=== PATIENT | female | born 1955 | race American Indian/Alaskan Native ===

== ENCOUNTER 2017-01-06 19:47 | Emergency (ER) | payer OTHER ==
[2017-01-06 20:25] VITALS: BP 112/70
[2017-01-06 20:53] LABS: Basophils % (Auto) 0.5 % (0.0-1.8); Eosinophils % (Auto) 0.6 % (0.0-4.3); Hematocrit 37.9 % (30.3-42.9); Hemoglobin 12.9 gm/dl (10.1-14.3); Mean Corpuscular HGB Conc 34 % (30-34); Mean Corpuscular Hemoglobin 32 pg (28-32); Mean Corpuscular Volume 94 fl (79-97); Platelet Count 135 K/mm3 (140-440); Red Blood Count 4.03 M/mm3 (3.65-5.03); Red Cell Distribution Width 13.5 % (13.2-15.2); White Blood Count 5.2 K/mm3 (4.5-11.0)
[2017-01-06 21:03] LABS: Alanine Aminotransferase 32 units/L (7-56); Albumin 4.3 g/dL (3.9-5); Albumin/Globulin Ratio 1.1 %; Alkaline Phosphatase 68 units/L (35-129); Anion Gap 21 mmol/L; BUN/Creatinine Ratio 12.85; Blood Urea Nitrogen 9 mg/dL (7-17); Calcium 9.6 mg/dL (8.4-10.2); Carbon Dioxide 24 mmol/L (22-30); Chloride 94.9 mmol/L (98-107); Glucose 383 mg/dL (65-100); Lipase 38 units/L (13-60); Sodium 137 mmol/L (137-145); Total Protein 8.2 g/dL (6.3-8.2)
[2017-01-06 21:05] LABS: Potassium 2.9 mmol/L (3.6-5.0)
[2017-01-06] MEDS ORDERED: MORPHINE IV ONE (21:20)
[2017-01-06] MEDS ORDERED: ZOFRAN IV ONE (21:20)
--- NOTE | 2017-01-06 21:27 | Emergency Department Report ---
ED Abdominal Pain HPI - General Chief Complaint: Abdominal Pain Stated Complaint: LEFT SIDE PAIN Time Seen by Provider: 01/06/17 21:13 Source: patient Mode of arrival: Ambulatory Limitations: No Limitations - History of Present Illness Initial Comments: 61 years old female history of high blood pressure diabetes and cancer to his chief complaint of left lower quadrant abdominal pain started last night. Pain is sharp in nature, constant, patient stated that she's been having diarrhea for more than a month now. Denied any nausea or vomiting no fever. MD Complaint: abdominal pain -: Last night Location: LLQ Radiation: none Migration to: no migration Severity: moderate Severity scale (0 -10): 6 Quality: sharp Consistency: constant Associated Symptoms: diarrhea - Related Data Previous Rx's Medication Instructions Recorded Last Taken Type Hydrochlorothiazide [Hctz] 25 mg PO QDAY #30 tablet 05/09/14 07/26/14 Rx Metoclopramide [Reglan] 10 mg PO TID PRN #20 tablet 05/09/14 07/26/14 Rx amLODIPine [Norvasc] 5 mg PO DAILY #30 tab 05/09/14 07/19/14 Rx glipiZIDE [Glucotrol] 5 mg PO QDAY #30 tablet 05/09/14 07/26/14 Rx HYDROcodone/APAP 10-325 [[place] 1 each PO Q6H PRN #10 tablet 07/27/14 Unknown Rx 10-325 mg TAB] Acetaminophen/Codeine [Tylenol 1 tab PO Q6H PRN #14 tab 01/07/17 Unknown Rx /Codeine # 3 tab] Levofloxacin [Levaquin TAB] 500 mg PO QDAY #7 tablet 01/07/17 Unknown Rx Ondansetron [Zofran Odt] 4 mg PO Q8HR PRN #14 tab.rapdis 01/07/17 Unknown Rx Allergies Allergy/AdvReac Type Severity Reaction Status Date / Time latex Allergy Rash Verified 04/25/13 13:59 ED Review of Systems ROS: Stated complaint: LEFT SIDE PAIN Other details as noted in HPI Comment: All other systems reviewed and negative Constitutional: denies: chills, fever Respiratory: denies: cough, shortness of breath Cardiovascular: denies: chest pain, palpitations Gastrointestinal: abdominal pain, diarrhea. denies: nausea, vomiting, constipation, hematemesis, melena, hematochezia Genitourinary: denies: urgency, dysuria, frequency, hematuria Neurological: denies: headache, numbness ED Past Medical Hx - Past Medical History Previous Medical History?: Yes Hx Hypertension: Yes Hx Diabetes: Yes Hx Psychiatric Treatment: Yes (Anxiety, OCD, depression) Additional medical history: Noncompliant with hypertension and diabetic meds, Enlarged Liver - Surgical History Additional Surgical History: Tubal ligation. partial hysterectomy, microscopic surg to both knees - Social History Smoking Status: Current Every Day Smoker Substance Use Type: Alcohol - Medications Home Medications: Home Medications Medication Instructions Recorded Confirmed Last Taken Type Hydrochlorothiazide [Hctz] 25 mg PO QDAY #30 tablet 05/09/14 07/27/14 07/26/14 Rx Metoclopramide [Reglan] 10 mg PO TID PRN #20 tablet 05/09/14 07/27/14 07/26/14 Rx amLODIPine [Norvasc] 5 mg PO DAILY #30 tab 05/09/14 07/27/14 07/19/14 Rx glipiZIDE [Glucotrol] 5 mg PO QDAY #30 tablet 05/09/14 07/27/14 07/26/14 Rx HYDROcodone/APAP 10-325 [[place] 1 each PO Q6H PRN #10 tablet 07/27/14 Unknown Rx 10-325 mg TAB] Acetaminophen/Codeine [Tylenol 1 tab PO Q6H PRN #14 tab 01/07/17 Unknown Rx /Codeine # 3 tab] Levofloxacin [Levaquin TAB] 500 mg PO QDAY #7 tablet 01/07/17 Unknown Rx Ondansetron [Zofran Odt] 4 mg PO Q8HR PRN #14 tab.rapdis 01/07/17 Unknown Rx ED Physical Exam - General Limitations: No Limitations General appearance: alert, in no apparent distress - Head Head exam: Present: normocephalic - Eye Eye exam: Present: normal appearance - ENT ENT exam: Present: normal exam - Neck Neck exam: Present: normal inspection. Absent: tenderness, meningismus - Respiratory Respiratory exam: Present: normal lung sounds bilaterally. Absent: respiratory distress, wheezes, rales, rhonchi, stridor - Cardiovascular Cardiovascular Exam: Present: regular rate, normal rhythm, normal heart sounds - GI/Abdominal GI/Abdominal exam: Present: soft, tenderness. Absent: distended, guarding, rebound, rigid (left lower quadrant), normal bowel sounds, mass, bruit, pulsatile mass - Extremities Exam Extremities exam: Present: normal inspection - Back Exam Back exam: Present: normal inspection. Absent: tenderness, CVA tenderness (R), CVA tenderness (L) - Neurological Exam Neurological exam: Present: alert, oriented X3, CN II-XII intact, normal gait. Absent: motor sensory deficit - Skin Skin exam: Present: warm, intact, normal color ED Course Vital Signs 01/06/17 20:21 Temperature 99.0 F Pulse Rate 99 H Respiratory 20 Rate Blood Pressure 112/70 O2 Sat by Pulse 98 Oximetry - Reevaluation(s) Reevaluation #1: 01/07/17 02:58 Patient stated that she is feeling better. I informed about blood work and a CT scan result which she showed colitis. Patient received IV Levaquin in the ER in will be discharged on Levaquin by mouth and [place] and Zofran for her nausea. ED Medical Decision Making - Lab Data Result diagrams: 01/06/17 20:30 01/06/17 20:30 - EKG Data -: EKG Interpreted by Me EKG shows normal: sinus rhythm Rate: normal - EKG Data Interpretation: no acute changes - Radiology Data Radiology results: report reviewed CT abdomen and pelvis with evidence of colitis no other acute abnormalities Critical care attestation.: If time is entered above; I have spent that time in minutes in the direct care of this critically ill patient, excluding procedure time. ED Disposition Clinical Impression: Abdominal pain, Colitis Disposition: DC-01 TO HOME OR SELFCARE Is pt being admited?: No Condition: Stable Instructions: Abdominal Pain (ED), Infectious Colitis (ED) Prescriptions: Acetaminophen/Codeine [Tylenol /Codeine # 3 tab] 1 tab PO Q6H PRN #14 tab PRN Reason: Pain Levofloxacin [Levaquin TAB] 500 mg PO QDAY #7 tablet Ondansetron [Zofran Odt] 4 mg PO Q8HR PRN #14 tab.rapdis PRN Reason: Nausea And Vomiting Referrals: PRIMARY CARE, [Primary Care Provider] - 3-5 Days
[2017-01-06] MEDS ORDERED: NACL 0.9% 1000 ML 1,000 ML IV ONE (21:28)
[2017-01-06] MEDS: KCL 10MEQ/100ML 10 MEQ/100 ML BAG IV SCH (22:01)
[2017-01-06] MEDS ORDERED: NACL ONE (22:05)
--- NOTE | 2017-01-06 23:14 | Cat Scan Report ---
FINAL REPORT EXAM: CT ABDOMEN PELVIS W CON HISTORY: abdominal pain COMPARISON: None available. TECHNIQUE: Contiguous axial images were obtained. Additional sagittal and coronal reformatted images were obtained. Administration of IV contrast given per institution protocol. Images submitted for interpretation. 100 cc Omnipaque 300. FINDINGS: Wall thickening of the transverse colon and descending colon compatible segmental colitis. Wall thickness is approximately 4-5 millimeters. Minimal haziness of the adjacent fat. Remaining bowel loops normal in caliber. No bowel obstruction. No free air pneumatosis. The appendix is partially gas-filled and normal in caliber. Mild linear scarring or atelectasis at the lung bases. Cholelithiasis. No gross inflammatory changes the gallbladder. The common bile duct is mildly dilated at the ekta hepatis measuring 8 millimeters but tapers to normal in caliber measuring 3-4 millimeters at the pancreatic head. Mild diffuse fatty infiltration of the liver. No focal hepatic lesion. Homogeneous enhancement of the spleen and pancreas. Small benign calcification the pancreas. Mild nodular thickening of adrenal glands. No solid renal lesion or hydronephrosis. 4 millimeter left renal cyst. Aorta and IVC are normal in caliber. Urinary bladder is unremarkable. Uterus is surgically absent. Bilateral ovaries appear to remain. No free fluid or lymphadenopathy in the pelvic cavity. [id number] degenerative changes of the lumbar spine. Grade 1 anterolisthesis of L4 on L5 due to facet changes. Bony pelvis is grossly intact. IMPRESSION: Mild segmental colitis involving the transverse colon and descending colon likely inflammatory or infectious in etiology. Remaining bowel loops normal in caliber. The appendix is normal in caliber. Cholelithiasis. No gross inflammatory changes the gallbladder.
[2017-01-06] MEDS ORDERED: LEVAQUIN 750MG/150ML 750 MG/150 ML BAG IV ONE (23:42)
[2017-01-07] MEDS: KCL 10MEQ/100ML 10 MEQ/100 ML BAG IV SCH (00:16)
[2017-01-07] MEDS ORDERED: MORPHINE IV ONE (02:26)
[2017-01-07] MEDS ORDERED: MORPHINE ONE (02:29)
[2017-01-07] MEDS ORDERED: KCL 10MEQ/100ML 10 MEQ/100 ML BAG IV ONE (02:51)
== END 2017-01-07 05:40 | disposition home or self-care (01) ==
LOC: ED 19:47
DX: K52.9 Noninfective gastroenteritis and colitis, unspecified (principal); R10.32 Left lower quadrant pain; I10 Essential (primary) hypertension; E11.9 Type 2 diabetes mellitus without complications; F17.200 Nicotine dependence, unspecified, uncomplicated; Z91.040 Latex allergy status
CPT/HCPCS: 36415; 74177; 80053; 82962; 83690; 85025; 93005; 93010; 96361; 96365; 96375; 96376; 99284; J1956; J2270; J2405; J3480; J7030; Q9967; J1815

== ENCOUNTER 2017-02-10 17:36 | Emergency (ER) | payer MEDICARE, OTHER ==
--- NOTE | 2017-02-10 21:05 | Emergency Department Report ---
ED General Adult HPI - General Chief complaint: Extremity Injury, Lower Stated complaint: LEFT THIGH PAIN Source: patient Mode of arrival: Ambulatory Limitations: No Limitations - History of Present Illness Initial comments: 61-year-old -[place] female presents to fast track for complaint of pain in her left thigh. This is an going on for about 1 week. Patient denies any falls. She reports that she's been taken Tylenol without much relief. She denies any fever chills no nausea no vomiting. She did have an appointment last week to her primary care doctor which is Dr. Ana Rosa Dsouza but was not able to make it secondary to transportation. Patient has a past medical history of diabetes and hypertension. -: week(s) (1) Location: lower extremity (left thigh) - Related Data Previous Rx's Medication Instructions Recorded Last Taken Type Hydrochlorothiazide [Hctz] 25 mg PO QDAY #30 tablet 05/09/14 07/26/14 Rx Metoclopramide [Reglan] 10 mg PO TID PRN #20 tablet 05/09/14 07/26/14 Rx amLODIPine [Norvasc] 5 mg PO DAILY #30 tab 05/09/14 07/19/14 Rx glipiZIDE [Glucotrol] 5 mg PO QDAY #30 tablet 05/09/14 07/26/14 Rx HYDROcodone/APAP 10-325 [[place] 1 each PO Q6H PRN #10 tablet 07/27/14 Unknown Rx 10-325 mg TAB] Acetaminophen/Codeine [Tylenol 1 tab PO Q6H PRN #14 tab 01/07/17 Unknown Rx /Codeine # 3 tab] Levofloxacin [Levaquin TAB] 500 mg PO QDAY #7 tablet 01/07/17 Unknown Rx Ondansetron [Zofran Odt] 4 mg PO Q8HR PRN #14 tab.rapdis 01/07/17 Unknown Rx Naproxen [Naprosyn] 500 mg PO BID #30 tablet 02/10/17 Unknown Rx Allergies Allergy/AdvReac Type Severity Reaction Status Date / Time latex Allergy Rash Verified 04/25/13 13:59 ED Review of Systems ROS: Stated complaint: LEFT THIGH PAIN Other details as noted in HPI Constitutional: denies: chills, fever Eyes: denies: eye pain, eye discharge, vision change ENT: denies: ear pain, throat pain Respiratory: denies: cough, shortness of breath, wheezing Cardiovascular: denies: chest pain, palpitations Endocrine: no symptoms reported Gastrointestinal: denies: abdominal pain, nausea, diarrhea Musculoskeletal: arthralgia, myalgia Skin: denies: rash, lesions Neurological: denies: headache, weakness, paresthesias Psychiatric: denies: anxiety, depression ED Past Medical Hx - Past Medical History Previous Medical History?: Yes Hx Hypertension: Yes Hx Diabetes: Yes Hx Psychiatric Treatment: Yes (Anxiety, OCD, depression) Additional medical history: Noncompliant with hypertension and diabetic meds, Enlarged Liver - Surgical History Past Surgical History?: Yes Additional Surgical History: Tubal ligation. partial hysterectomy, microscopic surg to both knees - Social History Smoking Status: Current Every Day Smoker Substance Use Type: Alcohol, Prescribed - Medications Home Medications: Home Medications Medication Instructions Recorded Confirmed Last Taken Type Hydrochlorothiazide [Hctz] 25 mg PO QDAY #30 tablet 05/09/14 07/27/14 07/26/14 Rx Metoclopramide [Reglan] 10 mg PO TID PRN #20 tablet 05/09/14 07/27/14 07/26/14 Rx amLODIPine [Norvasc] 5 mg PO DAILY #30 tab 05/09/14 07/27/14 07/19/14 Rx glipiZIDE [Glucotrol] 5 mg PO QDAY #30 tablet 05/09/14 07/27/14 07/26/14 Rx HYDROcodone/APAP 10-325 [[place] 1 each PO Q6H PRN #10 tablet 07/27/14 Unknown Rx 10-325 mg TAB] Acetaminophen/Codeine [Tylenol 1 tab PO Q6H PRN #14 tab 01/07/17 Unknown Rx /Codeine # 3 tab] Levofloxacin [Levaquin TAB] 500 mg PO QDAY #7 tablet 01/07/17 Unknown Rx Ondansetron [Zofran Odt] 4 mg PO Q8HR PRN #14 tab.rapdis 01/07/17 Unknown Rx Naproxen [Naprosyn] 500 mg PO BID #30 tablet 02/10/17 Unknown Rx ED Physical Exam - General Limitations: No Limitations General appearance: alert, in no apparent distress - Head Head exam: Present: atraumatic, normocephalic - Eye Eye exam: Present: normal appearance - ENT ENT exam: Present: mucous membranes moist - Neck Neck exam: Present: normal inspection - Respiratory Respiratory exam: Present: normal lung sounds bilaterally. Absent: respiratory distress - Cardiovascular Cardiovascular Exam: Present: regular rate, normal rhythm. Absent: systolic murmur, diastolic murmur, rubs, gallop - GI/Abdominal GI/Abdominal exam: Present: soft, normal bowel sounds - Expanded Lower Extremity Exam Left Upper Leg exam: Present: normal inspection, full ROM, tenderness. Absent: swelling, abrasion, laceration, ecchymosis, deformity Knee exam: Present: normal inspection, full ROM Lower Leg exam: Present: normal inspection Ankle exam: Present: normal inspection Foot/Toe exam: Present: normal inspection Neuro vascular tendon exam: Present: no vascular compromise - Back Exam Back exam: Present: normal inspection - Neurological Exam Neurological exam: Present: oriented X3 - Psychiatric Psychiatric exam: Present: normal affect, normal mood - Skin Skin exam: Present: warm, dry, intact, normal color. Absent: rash ED Course Vital Signs 02/10/17 17:46 Temperature 99.2 F Pulse Rate 108 H Respiratory 20 Rate Blood Pressure 144/86 O2 Sat by Pulse 99 Oximetry ED Medical Decision Making - Radiology Data Radiology results: report reviewed X-ray of femur shows mouth degree of osteoarthritis hip joint and moderate degree of osteoarthritis of the knee joint. X-ray of the lumbar sacral two- view shows multilevel degenerative changes as described above with mild degree of return the Listhesis at T12 to L1 and spondylolithiasis at the L4 and 5 - Medical Decision Making Patient evaluated by this provider faster. X-rays of her lumbar sacral as well as her left thigh was ordered. We'll give her shot of Toradol. An discharge her on naproxen 800 mg twice a day. Critical care attestation.: If time is entered above; I have spent that time in minutes in the direct care of this critically ill patient, excluding procedure time. ED Disposition Clinical Impression: Osteoarthritis of left hip, Spondylisthesis Disposition: TO HOME OR SELFCARE Is pt being admited?: No Does the pt Need Aspirin: No Condition: Stable Instructions: Degenerative Disc Disease (ED), Osteoarthritis (ED) Additional Instructions: Take medication as prescribed. Follow-up with her primary care provider or orthopedist. Prescriptions: Naproxen [Naprosyn] 500 mg PO BID #30 tablet Referrals: FABIANA HANNA MD [Staff Physician] - 3-5 Days
[2017-02-10] MEDS ORDERED: TORADOL ONE (21:27)
[2017-02-10] MEDS: TORADOL IM ONE (21:30)
--- NOTE | 2017-02-10 21:30 | XRay Report ---
FINAL REPORT PROCEDURE: XR SPINE LUMBOSACRAL 2-3V TECHNIQUE: Lumbar spine radiographs, including AP, lateral, and lumbosacral spot views. CPT 83749 HISTORY: lower back pain COMPARISON: No prior studies are available for comparison. FINDINGS: Alignment: Mild degree spondylolisthesis is noted at L4-5 measuring about 4 millimeters. Mild degree retrolisthesis is identified at T12-L1 measuring 4 millimeters.. Minimal degree dextroscoliosis is noted. Vertebral body heights/Disk spaces: Marginal osteophyte formation is noted involving the lower thoracic spine and L1-2. Severe degree narrowing of the intervertebral disc spaces noted at T12-L1. Fracture(s): None. Facets: Unremarkable as visualized on these AP and lateral views.. Bone mineralization: Normal. IMPRESSION: Multilevel degenerative changes as described above with mild degree return listhesis at T12-L1 and spondylolisthesis at the L4-5.
--- NOTE | 2017-02-10 21:33 | XRay Report ---
FINAL REPORT PROCEDURE: XR FEMUR 2+V LT TECHNIQUE: LEFT femur radiographs, AP and lateral views. HISTORY: Thigh pain that radiates COMPARISON: No prior studies are available for comparison. FINDINGS: Fracture (s) and/or Dislocation(s): None . Joint space(s): Mild degree narrowing of left hip joint space is noted and moderate degree narrowing of Led[place] left knee joint spaces is noted. Moderate degree osteophyte formation is identified involving the knee joint. There is minimal degree knee joint effusion.. Soft tissues: Normal . Bone mineralization: Normal . Foreign bodies: None . IMPRESSION: Mild degree osteoarthritis hip joint and moderate degree osteoarthritis knee joint
[2017-02-10 22:22] VITALS: BP 131/83
== END 2017-02-10 22:22 | disposition home or self-care (01) ==
LOC: ED 17:36
DX: M16.12 Unilateral primary osteoarthritis, left hip (principal); M46.90 Unspecified inflammatory spondylopathy, site unspecified; I10 Essential (primary) hypertension; E11.9 Type 2 diabetes mellitus without complications; F17.200 Nicotine dependence, unspecified, uncomplicated
CPT/HCPCS: 72100; 73552; 96372; 99283; J1885

== ENCOUNTER 2018-08-19 18:41 | Inpatient (IN) | payer MEDICARE ==
[2018-08-19] MEDS ORDERED: MORPHINE IV ONE (20:47)
--- NOTE | 2018-08-19 20:51 | Emergency Department Report ---
ED Lower Extremity HPI - General Chief Complaint: Fall Stated Complaint: R LEG PAIN Time Seen by Provider: 08/19/18 20:03 Source: patient, EMS Mode of arrival: Stretcher Limitations: Physical Limitation - History of Present Illness Initial Comments: 63-year-old female with history of hypertension and diabetes presents to the ED with right leg injury. The patient states she slipped and fell in her kitchen, reports pain to the right thigh. Patient is on and that the right thigh externally rotated, flexed at the knee. Patient states she is unable to move it from that position due to pain. Patient denies numbness or tingling in her toes. Patient is able to move her toes. Patient given fentanyl 100 mcg by EMS. PCP: Dr Lianna SANTOYO Complaint: thigh injury -: This evening Injury: Thigh: Right Place: home Severity: severe Improves With: nothing Worsens With: movement, palpation Context: fall Associated Symptoms: unable to bear weight. denies: numbness, tingling Treatments Prior to Arrival: other (fentanyl by EMS) - Related Data Previous Rx's Medication Instructions Recorded Last Taken Type Metoclopramide [Reglan] 10 mg PO TID PRN #20 tablet 05/09/14 07/26/14 Rx amLODIPine [Norvasc] 5 mg PO DAILY #30 tab 05/09/14 07/19/14 Rx glipiZIDE [Glucotrol] 5 mg PO QDAY #30 tablet 05/09/14 07/26/14 Rx hydroCHLOROthiazide [Hctz] 25 mg PO QDAY #30 tablet 05/09/14 07/26/14 Rx HYDROcodone/APAP 10-325 [[place] 1 each PO Q6H PRN #10 tablet 07/27/14 Unknown Rx 10-325 mg TAB] Acetaminophen/Codeine [Tylenol 1 tab PO Q6H PRN #14 tab 01/07/17 Unknown Rx /Codeine # 3 tab] Ondansetron [Zofran Odt] 4 mg PO Q8HR PRN #14 tab.rapdis 01/07/17 Unknown Rx levoFLOXacin [Levaquin TAB] 500 mg PO QDAY #7 tablet 01/07/17 Unknown Rx Naproxen [Naprosyn] 500 mg PO BID #30 tablet 02/10/17 Unknown Rx Acetaminophen/Codeine [Tylenol 1 tab PO Q6H PRN #20 tab 02/05/18 Unknown Rx /Codeine # 3 tab] Ondansetron [Zofran Odt] 4 mg PO Q6HR PRN #20 tab.rapdis 02/05/18 Unknown Rx Allergies Allergy/AdvReac Type Severity Reaction Status Date / Time latex Allergy Rash Verified 04/25/13 13:59 ED Review of Systems ROS: Stated complaint: R LEG PAIN Other details as noted in HPI Comment: All other systems reviewed and negative Musculoskeletal: as per HPI Neurological: denies: numbness, paresthesias ED Past Medical Hx - Past Medical History Previous Medical History?: Yes Hx Hypertension: Yes Hx Diabetes: Yes Hx Psychiatric Treatment: Yes (Anxiety, OCD, depression) Additional medical history: Noncompliant with hypertension and diabetic meds, Enlarged Liver - Surgical History Past Surgical History?: Yes Additional Surgical History: Tubal ligation. partial hysterectomy, microscopic surg to both knees - Social History Smoking Status: Current Every Day Smoker Substance Use Type: Alcohol - Medications Home Medications: Home Medications Medication Instructions Recorded Confirmed Last Taken Type Metoclopramide [Reglan] 10 mg PO TID PRN #20 tablet 05/09/14 07/27/14 07/26/14 Rx amLODIPine [Norvasc] 5 mg PO DAILY #30 tab 05/09/14 07/27/14 07/19/14 Rx glipiZIDE [Glucotrol] 5 mg PO QDAY #30 tablet 05/09/14 07/27/14 07/26/14 Rx hydroCHLOROthiazide [Hctz] 25 mg PO QDAY #30 tablet 05/09/14 07/27/14 07/26/14 Rx HYDROcodone/APAP 10-325 [[place] 1 each PO Q6H PRN #10 tablet 07/27/14 Unknown Rx 10-325 mg TAB] Acetaminophen/Codeine [Tylenol 1 tab PO Q6H PRN #14 tab 01/07/17 Unknown Rx /Codeine # 3 tab] Ondansetron [Zofran Odt] 4 mg PO Q8HR PRN #14 tab.rapdis 01/07/17 Unknown Rx levoFLOXacin [Levaquin TAB] 500 mg PO QDAY #7 tablet 01/07/17 Unknown Rx Naproxen [Naprosyn] 500 mg PO BID #30 tablet 02/10/17 Unknown Rx Acetaminophen/Codeine [Tylenol 1 tab PO Q6H PRN #20 tab 02/05/18 Unknown Rx /Codeine # 3 tab] Ondansetron [Zofran Odt] 4 mg PO Q6HR PRN #20 tab.rapdis 02/05/18 Unknown Rx ED Physical Exam - General Limitations: Physical Limitation General appearance: alert, in no apparent distress - Head Head exam: Present: atraumatic, normocephalic - Eye Eye exam: Present: normal appearance - ENT ENT exam: Present: mucous membranes moist - Neck Neck exam: Present: normal inspection - Respiratory Respiratory exam: Present: normal lung sounds bilaterally. Absent: respiratory distress - Cardiovascular Cardiovascular Exam: Present: regular rate, normal rhythm - GI/Abdominal GI/Abdominal exam: Present: soft. Absent: distended, tenderness - Extremities Exam Extremities exam: Present: other (tenderness to right mid thigh, right hip, right knee; palpable DP pulse on the right; pt moves toes of the right foot; sensation intact; right foot is warm) - Neurological Exam Neurological exam: Present: alert, oriented X3. Absent: motor sensory deficit - Psychiatric Psychiatric exam: Present: normal affect, normal mood - Skin Skin exam: Present: warm, dry, intact, normal color ED Course Vital Signs 08/19/18 08/19/18 18:53 20:04 Temperature 98.6 F 98.5 F Pulse Rate 77 78 Respiratory 16 10 L Rate Blood Pressure 144/79 Blood Pressure 130/68 [Left] O2 Sat by Pulse 98 97 Oximetry - Consultations Consultation #1: 08/19/18 22:16 Spoke w/ Dr Concepcion. Wants long posterior splint. Will plan to repair tomorrow. ED Lower Extremity MDM - Radiology Data Radiology results: image reviewed interpreted by me: comminuted, displaced, mid-shaft fx - Medical Decision Making 5-year-old female with right comminuted, displaced mid-shaft femur fracture. Spoke w/ orthopedist, Dr Concepcion, will take to OR tomorrow. Long posterior splint placed. Will admit to hospitalist, Dr Marcus. - Differential Diagnosis fracture, dislocation, contusion Critical care attestation.: If time is entered above; I have spent that time in minutes in the direct care of this critically ill patient, excluding procedure time. ED Disposition Clinical Impression: Femur fracture, right Disposition: DC-09 OP ADMIT IP TO THIS HOSP Is pt being admited?: Yes Condition: Stable Referrals: PRIMARY CARE, [Primary Care Provider] - 3-5 Days Time of Disposition: 22:18
[2018-08-19 22:49] LABS: Basophils % (Auto) 0.3 % (0.0-1.8); Eosinophils % (Auto) 0.1 % (0.0-4.3); Hematocrit 34.6 % (30.3-42.9); Hemoglobin 11.7 gm/dl (10.1-14.3); Lymphocytes # (Auto) 1.3 K/mm3 (1.2-5.4); Lymphocytes % (Auto) 16.5 % (13.4-35.0); Mean Corpuscular HGB Conc 34 % (30-34); Mean Corpuscular Volume 91 fl (79-97); Monocytes # (Auto) 0.6 K/mm3 (0.0-0.8); Monocytes % (Auto) 7.7 % (0.0-7.3); Platelet Count 153 K/mm3 (140-440); Red Blood Count 3.81 M/mm3 (3.65-5.03); Red Cell Distribution Width 15.9 % (13.2-15.2)
--- NOTE | 2018-08-19 22:52 | XRay Report ---
PROCEDURE: XR FEMUR 2+V RT TECHNIQUE: 4 radiographs of the right femur obtained. HISTORY: pain, fall COMPARISONS: None FINDINGS: Acute comminuted displaced fractures seen of the mid shaft of the right femur. Continued follow-up re commended. IMPRESSION: Acute comminuted displaced fractures seen of the mid shaft of the right femur. Continued follow-up re commended. This document is electronically signed by Mariano Ashby MD., Aug 19 2018 10:50:26 PM ET
[2018-08-19 23:05] LABS: Blood Urea Nitrogen 11 mg/dL (7-17); Calcium 9.2 mg/dL (8.4-10.2); Hemolysis Index 5
[2018-08-19 23:15] LABS: BUN/Creatinine Ratio 22
[2018-08-19] MEDS ORDERED: TYLENOL PO PRN (23:44)
[2018-08-19] MEDS ORDERED: ZOFRAN IV PRN (23:44)
[2018-08-19] MEDS ORDERED: SODIUM CHLORIDE FLUSH SYRINGE 10 ML IV PRN (23:44)
[2018-08-19] MEDS ORDERED: PERCOCET 5/325 PO PRN (23:44)
[2018-08-19] MEDS ORDERED: DILAUDID IV PRN (23:47)
[2018-08-19] MEDS ORDERED: NARCAN 0.4 MG/1 ML IV PRN (23:48)
--- NOTE | 2018-08-19 23:53 | History and Physical Report ---
<TITUS SANCHEZ - Last Filed: 08/20/18 00:46> History of Present Illness Date of examination: 08/19/18 Date of admission: 08/19/2018 Chief complaint: Right femur fracture History of present illness: 63-year-old -Tog[place] female who is an ongoing smoker with history of diabetes, hypertension noncompliant with medications presented to [facility] ED via EMS with complaints of right leg pain related to right leg injury. Patient states that she was at home in her kitchen attempting to put water in her dog's bowl, and some of the water accidentally spilled on the floor, as result she slipped and fell with the right side taking most of the impact. She rates her pain as 10/10. It is aggravated with movement and relieved with rest and pain medications. She was given fentanyl 100mcg by EMS. Her right thigh is externally rotated, and flexed at the knee. Currently pt is in a right leg splint. Denies paresthesia, numbness, dyspnea,chest pain or discomfort. Past History Past Medical History: diabetes, hypertension, other (anxiety, OCD, depression) Past Surgical History: hysterectomy (partial hysterectomy,), Other (tubal ligation, microscopic knee surgery) Social history: smoking, other (alcohol use) Family history: no significant family history Medications and Allergies Allergies Allergy/AdvReac Type Severity Reaction Status Date / Time latex Allergy Rash Verified 04/25/13 13:59 Home Medications Medication Instructions Recorded Confirmed Last Taken Type amLODIPine [Norvasc] 5 mg PO DAILY #30 tab 05/09/14 08/27/18 07/19/14 Rx glipiZIDE [Glucotrol] 5 mg PO QDAY #30 tablet 05/09/14 08/27/18 07/26/14 Rx hydroCHLOROthiazide [HCTZ] 25 mg PO QDAY #30 tablet 05/09/14 08/27/18 07/26/14 Rx Ondansetron [Zofran ODT TAB] 4 mg PO Q8HR PRN #14 tab.rapdis 01/07/17 08/27/18 Unknown Rx Docusate Sodium [Colace CAP] 100 mg PO BID capsule 08/27/18 08/27/18 Unknown Rx Enoxaparin [Lovenox] 40 mg SUB-Q QDAY syringe 08/27/18 08/27/18 Unknown Rx Glycerin Adult 2 gm 1 supp DE QDAY PRN supp.rect 08/27/18 08/27/18 Unknown Rx HYDROcodone/APAP 5-325 [[place] 1 each PO Q6H PRN tablet 08/27/18 08/27/18 Unknown Rx 5-325 mg TAB] Insulin Glargine [Lantus VIAL] 15 units SUB-Q QHS units 08/27/18 08/27/18 Unknown Rx Lispro Insulin [HumaLOG] 0 unit SUB-Q ACHS units 08/27/18 08/27/18 Unknown Rx Naloxone 0.4 mg/1 ml [Narcan 0.4 0.1 mg IV Q2MIN PRN amp 08/27/18 08/27/18 Unknown Rx mg/1 ml] diphenhydrAMINE [Benadryl CAP] 25 mg PO Q6H PRN capsule 08/27/18 08/27/18 Unknown Rx oxyCODONE /ACETAMINOPHEN [Percocet 2 tab PO Q4H PRN tablet 08/27/18 08/27/18 Unknown Rx 5/325 mg] Review of Systems Constitutional: no fever, no chills, no poor appetite Ears, nose, mouth and throat: no headache, no vertigo, no pain front of neck, no neck fullness/pressure Breasts: deferred Cardiovascular: no chest pain, no lightheadedness, no shortness of breath Respiratory: no cough, no hemoptysis, no shortness of breath Gastrointestinal: no abdominal pain, no nausea, no vomiting Genitourinary Female: no dyspareunia, no pelvic pain Menstruation: no postmenopausal Rectal: no pain, no incontinence, no bleeding Musculoskeletal: limitation of motion (d/t rt hip fracture ), fractures (rt lower extremity), no neck stiffness Integumentary: no rash, no pruritis, no redness, no sores Neurological: no paralysis, no weakness, no parathesias Psychiatric: anxiety, other (OCD), no sleep disturbances, no insomnia, no suicidal ideation Endocrine: no polydipsia, no polyuria, no nocturia Hematologic/Lymphatic: no easy bruising, no easy bleeding Allergic/Immunologic: no wheezing, no angioedema Exam - Physical Exam Narrative exam: Physical exam General appearance: Present: Mild distress - EENT Eyes: Present: PERRL, EOM intact ENT: hearing intact, poor dentition - Neck Neck: Present: supple, normal ROM - Respiratory Respiratory effort: Non-labored Respiratory: bilateral: diminished (bases) - Cardiovascular Heart rate: 78 (bpm) Rhythm: regular Heart Sounds: Present: S1 & S2. Absent: rub, click - Extremities Extremities: no ischemia, pulses intact, abnormal (right lower extremity currently in splint due to commuted displaced fracture) - Peripheral Assessment Peripheral Pulses: within normal limits - Abdominal General gastrointestinal: soft, non-tender, normal bowel sounds - Integumentary Integumentary: Present: warm, dry - Musculoskeletal Musculoskeletal: right thigh externally rotated, flexed at the knee, currently in splint, able to move toes - Psychiatric Psychiatric: cooperative - Constitutional Vitals: Temp Pulse Resp BP Pulse Ox 98.5 F 78 10 L 130/68 97 08/19/18 20:04 08/19/18 20:04 08/19/18 20:04 08/19/18 20:04 08/19/18 20:04 Results - Labs CBC & Chem 7: 08/19/18 22:43 08/19/18 22:43 Labs: Laboratory Last Values WBC 8.0 K/mm3 (4.5-11.0) 08/19/18 22:43 RBC 3.81 M/mm3 (3.65-5.03) 08/19/18 22:43 Hgb 11.7 gm/dl (10.1-14.3) 08/19/18 22:43 Hct 34.6 % (30.3-42.9) 08/19/18 22:43 MCV 91 fl (79-97) 08/19/18 22:43 MCH 31 pg (28-32) 08/19/18 22:43 MCHC 34 % (30-34) 08/19/18 22:43 RDW 15.9 % (13.2-15.2) H 08/19/18 22:43 Plt Count 153 K/mm3 (140-440) 08/19/18 22:43 Lymph % (Auto) 16.5 % (13.4-35.0) 08/19/18 22:43 [place] % (Auto) 7.7 % (0.0-7.3) H 08/19/18 22:43 Eos % (Auto) 0.1 % (0.0-4.3) 08/19/18 22:43 Baso % (Auto) 0.3 % (0.0-1.8) 08/19/18 22:43 Lymph # 1.3 K/mm3 (1.2-5.4) 08/19/18 22:43 [place] # 0.6 K/mm3 (0.0-0.8) 08/19/18 22:43 Eos # 0.0 K/mm3 (0.0-0.4) 08/19/18 22:43 Baso # 0.0 K/mm3 (0.0-0.1) 08/19/18 22:43 Seg Neutrophils % 75.4 % (40.0-70.0) H 08/19/18 22:43 Seg Neutrophils # 6.0 K/mm3 (1.8-7.7) 08/19/18 22:43 PT 13.8 Sec. (12.2-14.9) 08/19/18 22:43 INR 1.00 (0.87-1.13) 08/19/18 22:43 APTT 30.0 Sec. (24.2-36.6) 08/19/18 22:43 Sodium 138 mmol/L (137-145) 08/19/18 22:43 Potassium 3.6 mmol/L (3.6-5.0) 08/19/18 22:43 Chloride 100.3 mmol/L (98-107) 08/19/18 22:43 Carbon Dioxide 24 mmol/L (22-30) 08/19/18 22:43 Anion Gap 17 mmol/L 08/19/18 22:43 BUN 11 mg/dL (7-17) 08/19/18 22:43 Creatinine 0.5 mg/dL (0.7-1.2) L 08/19/18 22:43 Estimated GFR > 60 ml/min 08/19/18 22:43 BUN/Creatinine Ratio 22 % 08/19/18 22:43 Glucose 59 mg/dL (65-100) L 08/19/18 22:43 Calcium 9.2 mg/dL (8.4-10.2) 08/19/18 22:43 Short CBC 08/19/18 Range/Units 22:43 WBC 8.0 (4.5-11.0) K/mm3 Hgb 11.7 (10.1-14.3) gm/dl Hct 34.6 (30.3-42.9) % Plt Count 153 (140-440) K/mm3 [facility] 08/19/18 22:43 Sodium 138 Potassium 3.6 Chloride 100.3 Carbon Dioxide 24 BUN 11 Creatinine 0.5 L Glucose 59 L Calcium 9.2 - Imaging and Cardiology Imaging and Cardiology: Femur X-Ray: Acute comminuted displaced fractures seen of the mid shaft of the right femur. Assessment and Plan Assessment and plan: 63-year-old -[place] female who is an ongoing smoker with history of diabetes, hypertension noncompliant with medications presented to [facility] ED via EMS with complaints of right leg pain related to right leg injury. She was given fentanyl 100mcg by EMS. Her right thigh is externally rotated, and flexed at the knee. Femur X-ray revealed an acute comminuted displaced fractures seen of the mid shaft of the right femur. Currently pt is in a right leg splint. Dr. Concepcion, orthopedic surgeon has been consulted. Pt will be admitted to surgical floor. Acute comminuted displaced fractures of right femur Acute pain HTN- non compliant with medication DM2- uncontrolled Tobacco Abuse Plan: Immobilize and elevate rt leg Continue pain mgmt, Support care Dr. Concepcion plans on doing surgical repair tomorrow Pt is NPO pending surgical repair of rt femur Monitor BP Resume home antihypertensive med: Norvasc 5mg daily and HCTZ 25mg daily IV hydralazine when necessary HgbA1c 10.3 POC BG Monitoring SSI coverage IVF NS@ 100ml/hr Counseled for cessation pt refused Nicotine patch DVT PPX on Lovenox Advance Directives: No VTE prophylaxis?: Chemical Plan of care discussed with patient/family: Yes <JUNITO MORTON - Last Filed: 09/02/18 01:09> History of Present Illness Date of admission: 08/19/18 23:44 Medications and Allergies Active Meds: Active Medications Acetaminophen (Tylenol) 650 mg PO Q4H PRN PRN Reason: Pain MILD(1-3)/Fever >100.5/PARKER Amlodipine Besylate (Norvasc) 5 mg PO DAILY JOANIE Dextrose (D50w (25gm) Syringe) 50 ml IV PRN PRN PRN Reason: Hypoglycemia Docusate Sodium (Colace) 100 mg PO BID JOANIE Enoxaparin Sodium (Lovenox) 40 mg SUB-Q QDAY [facility] Hydralazine HCl (Apresoline) 10 mg IV Q4HR PRN PRN Reason: Blood Pressure Hydrochlorothiazide (Hctz) 25 mg PO QDAY JOANIE Hydromorphone HCl (Dilaudid) 0.5 mg IV Q3H PRN PRN Reason: Pain, Moderate (4-6) Stop: 08/20/18 23:59 Sodium Chloride (Nacl 0.9% 1000 Ml) 1,000 mls @ 100 mls/hr IV DIRECT JOANIE Insulin Human Lispro (Humalog) 0 unit SUB-Q Q6HR JOANIE; Protocol Morphine Sulfate (Morphine) 2 mg IV Q4H PRN PRN Reason: Pain, Moderate (4-6) Stop: 08/20/18 23:59 Last Admin: 08/20/18 00:13 Dose: 2 mg Documented by: Naloxone HCl (Narcan 0.4 Mg/1 Ml) 0.1 mg IV Q2MIN PRN PRN Reason: Res Rate </= 8 or 02 SAT < 92% Ondansetron HCl (Zofran) 4 mg IV Q8H PRN PRN Reason: Nausea And Vomiting Oxycodone/Acetaminophen (Percocet 5/325) 1 tab PO Q6H PRN PRN Reason: Pain, Moderate (4-6) Sodium Chloride (Sodium Chloride Flush Syringe 10 Ml) 10 ml IV BID JOANIE Sodium Chloride (Sodium Chloride Flush Syringe 10 Ml) 10 ml IV PRN PRN PRN Reason: LINE FLUSH Exam - Constitutional Vitals: Temp Pulse Resp BP Pulse Ox 98.5 F 89 18 137/82 97 08/19/18 20:04 08/20/18 00:00 08/20/18 00:00 08/20/18 00:00 08/20/18 00:00 Results - Labs CBC & Chem 7: 08/26/18 04:08 08/26/18 04:08 Labs: Laboratory Last Values WBC 8.0 K/mm3 (4.5-11.0) 08/19/18 22:43 RBC 3.81 M/mm3 (3.65-5.03) 08/19/18 22:43 Hgb 11.7 gm/dl (10.1-14.3) 08/19/18 22:43 Hct 34.6 % (30.3-42.9) 08/19/18 22:43 MCV 91 fl (79-97) 08/19/18 22:43 MCH 31 pg (28-32) 08/19/18 22:43 MCHC 34 % (30-34) 08/19/18 22:43 RDW 15.9 % (13.2-15.2) H 08/19/18 22:43 Plt Count 153 K/mm3 (140-440) 08/19/18 22:43 Lymph % (Auto) 16.5 % (13.4-35.0) 08/19/18 22:43 [place] % (Auto) 7.7 % (0.0-7.3) H 08/19/18 22:43 Eos % (Auto) 0.1 % (0.0-4.3) 08/19/18 22:43 Baso % (Auto) 0.3 % (0.0-1.8) 08/19/18 22:43 Lymph # 1.3 K/mm3 (1.2-5.4) 08/19/18 22:43 [place] # 0.6 K/mm3 (0.0-0.8) 08/19/18 22:43 Eos # 0.0 K/mm3 (0.0-0.4) 08/19/18 22:43 Baso # 0.0 K/mm3 (0.0-0.1) 08/19/18 22:43 Seg Neutrophils % 75.4 % (40.0-70.0) H 08/19/18 22:43 Seg Neutrophils # 6.0 K/mm3 (1.8-7.7) 08/19/18 22:43 PT 13.8 Sec. (12.2-14.9) 08/19/18 22:43 INR 1.00 (0.87-1.13) 08/19/18 22:43 APTT 30.0 Sec. (24.2-36.6) 08/19/18 22:43 Sodium 138 mmol/L (137-145) 08/19/18 22:43 Potassium 3.6 mmol/L (3.6-5.0) 08/19/18 22:43 Chloride 100.3 mmol/L (98-107) 08/19/18 22:43 Carbon Dioxide 24 mmol/L (22-30) 08/19/18 22:43 Anion Gap 17 mmol/L 08/19/18 22:43 BUN 11 mg/dL (7-17) 08/19/18 22:43 Creatinine 0.5 mg/dL (0.7-1.2) L 08/19/18 22:43 Estimated GFR > 60 ml/min 08/19/18 22:43 BUN/Creatinine Ratio 22 % 08/19/18 22:43 Glucose 59 mg/dL (65-100) L 08/19/18 22:43 POC Glucose 51 (70-105) L 08/20/18 00:21 Hemoglobin A1c 10.3 % (4-6) H 08/20/18 00:08 Calcium 9.2 mg/dL (8.4-10.2) 08/19/18 22:43 Triglycerides 38 mg/dL (2-149) 08/19/18 Unknown Cholesterol 116 mg/dL (50-199) 08/19/18 Unknown LDL Cholesterol Direct 30 mg/dL (50-130) L 08/19/18 Unknown HDL Cholesterol 81 mg/dL (40-59) H 08/19/18 Unknown Cholesterol/HDL Ratio 1.43 % 08/19/18 Unknown Assessment and Plan Assessment and plan: 63-year-old woman with a history of hypertension, diabetes, OCD, anxiety, depression tripped over her dog's water bowl, subsequently fell on the wet floor and sustained a right femur fracture. Patient seen and examined with ECHO TECHNICIAN. Agree with plan as discussed above
[2018-08-20] MEDS ORDERED: D50W (25GM) Syringe IV PRN (00:04)
[2018-08-20] MEDS: MORPHINE IV PRN ×3 (00:13→16:06)
[2018-08-20 00:20] LABS: Chol/HDL Ratio 1.43 %
[2018-08-20] MEDS ORDERED: APRESOLINE IV PRN (00:48)
[2018-08-20] MEDS: NACL 0.9% 1000 ML 1,000 ML IV SCH ×2 (01:00→10:14)
[2018-08-20 07:24] LABS: BUN/Creatinine Ratio 18; Basophils % (Auto) 0.4 % (0.0-1.8); Blood Urea Nitrogen 9 mg/dL (7-17); Calcium 8.4 mg/dL (8.4-10.2); Eosinophils % (Auto) 0.7 % (0.0-4.3); Hematocrit 31.9 % (30.3-42.9); Hemoglobin 10.9 gm/dl (10.1-14.3); Hemolysis Index 3; Lymphocytes # (Auto) 1.5 K/mm3 (1.2-5.4); Lymphocytes % (Auto) 31.1 % (13.4-35.0); Mean Corpuscular HGB Conc 34 % (30-34); Mean Corpuscular Volume 91 fl (79-97); Monocytes # (Auto) 0.5 K/mm3 (0.0-0.8); Platelet Count 147 K/mm3 (140-440); Red Blood Count 3.52 M/mm3 (3.65-5.03); Red Cell Distribution Width 15.8 % (13.2-15.2)
[2018-08-20] MEDS: HumaLOG SUB-Q SCH ×3 (07:51→18:00)
[2018-08-20] MEDS ORDERED: GLUCOTROL PO SCH (08:00)
[2018-08-20] MEDS: NORVASC PO SCH (09:20)
[2018-08-20] MEDS: COLACE PO SCH ×2 (09:20→22:00)
[2018-08-20] MEDS: SODIUM CHLORIDE FLUSH SYRINGE 10 ML IV SCH (09:20)
[2018-08-20] MEDS: HCTZ PO SCH (09:20)
[2018-08-20] MEDS: LOVENOX SUB-Q SCH (10:17)
--- NOTE | 2018-08-20 13:36 | Progress Note ---
Hospitalist Physical - Constitutional Vitals: Temp Pulse Resp BP Pulse Ox 98.9 F 75 18 127/75 94 08/20/18 11:08 08/20/18 11:13 08/20/18 11:08 08/20/18 11:08 08/20/18 11:13 Results - Labs CBC & Chem 7: 08/20/18 04:42 08/20/18 04:42 Labs: Laboratory Last Values WBC 4.7 K/mm3 (4.5-11.0) 08/20/18 04:42 RBC 3.52 M/mm3 (3.65-5.03) L 08/20/18 04:42 Hgb 10.9 gm/dl (10.1-14.3) 08/20/18 04:42 Hct 31.9 % (30.3-42.9) 08/20/18 04:42 MCV 91 fl (79-97) 08/20/18 04:42 MCH 31 pg (28-32) 08/20/18 04:42 MCHC 34 % (30-34) 08/20/18 04:42 RDW 15.8 % (13.2-15.2) H 08/20/18 04:42 Plt Count 147 K/mm3 (140-440) 08/20/18 04:42 Lymph % (Auto) 31.1 % (13.4-35.0) 08/20/18 04:42 [place] % (Auto) 10.0 % (0.0-7.3) H 08/20/18 04:42 Eos % (Auto) 0.7 % (0.0-4.3) 08/20/18 04:42 Baso % (Auto) 0.4 % (0.0-1.8) 08/20/18 04:42 Lymph # 1.5 K/mm3 (1.2-5.4) 08/20/18 04:42 [place] # 0.5 K/mm3 (0.0-0.8) 08/20/18 04:42 Eos # 0.0 K/mm3 (0.0-0.4) 08/20/18 04:42 Baso # 0.0 K/mm3 (0.0-0.1) 08/20/18 04:42 Seg Neutrophils % 57.8 % (40.0-70.0) 08/20/18 04:42 Seg Neutrophils # 2.7 K/mm3 (1.8-7.7) 08/20/18 04:42 PT 13.8 Sec. (12.2-14.9) 08/19/18 22:43 INR 1.00 (0.87-1.13) 08/19/18 22:43 APTT 30.0 Sec. (24.2-36.6) 08/19/18 22:43 Sodium 137 mmol/L (137-145) 08/20/18 04:42 Potassium 3.4 mmol/L (3.6-5.0) L 08/20/18 04:42 Chloride 100.6 mmol/L (98-107) 08/20/18 04:42 Carbon Dioxide 25 mmol/L (22-30) 08/20/18 04:42 15 mmol/L 08/20/18 04:42 BUN 9 mg/dL (7-17) 08/20/18 04:42 0.5 mg/dL (0.7-1.2) L 08/20/18 04:42 Estimated GFR > 60 ml/min 08/20/18 04:42 18 % 08/20/18 04:42 Glucose 212 mg/dL (65-100) H 08/20/18 04:42 POC Glucose 157 (70-105) H 08/20/18 12:00 10.3 % (4-6) H 08/20/18 00:08 Calcium 8.4 mg/dL (8.4-10.2) 08/20/18 04:42 Triglycerides 38 mg/dL (2-149) 08/19/18 Unknown Cholesterol 116 mg/dL (50-199) 08/19/18 Unknown 30 mg/dL (50-130) L 08/19/18 Unknown 81 mg/dL (40-59) H 08/19/18 Unknown 1.43 % 08/19/18 Unknown Active Medications - Current Medications Current Medications: Generic Name Dose Route Start Last Admin Trade Name Freq PRN Reason Stop Dose Admin Acetaminophen 650 mg 08/19/18 23:44 Tylenol PO Q4H PRN Pain MILD(1-3)/Fever >100.5/PARKER Amlodipine Besylate 5 mg 08/20/18 10:00 08/20/18 09:20 Norvasc PO Not Given DAILY JOANIE Dextrose 50 ml 08/20/18 00:04 D50w (25gm) Syringe IV PRN PRN Hypoglycemia Docusate Sodium 100 mg 08/20/18 10:00 08/20/18 09:20 Colace PO Not Given BID [facility] Enoxaparin Sodium 40 mg 08/20/18 10:00 08/20/18 10:17 Lovenox SUB-Q Not Given QDAY [facility] Hydralazine HCl 10 mg 08/20/18 00:48 Apresoline IV Q4H PRN Blood Pressure Hydrochlorothiazide 25 mg 08/20/18 10:00 08/20/18 09:20 Hctz PO Not Given QDAY [facility] Hydromorphone HCl 0.5 mg 08/19/18 23:47 Dilaudid IV 08/20/18 23:59 Q3H PRN Pain, Moderate (4-6) Sodium Chloride 1,000 mls @ 100 mls/hr 08/19/18 23:45 08/20/18 10:14 Nacl 0.9% 1000 Ml IV 100 mls/hr DIRECT [facility] Administration Insulin Human Lispro 0 unit 08/20/18 06:00 08/20/18 12:40 Humalog SUB-Q Not Given Q6HR [facility] Protocol Morphine Sulfate 2 mg 08/19/18 23:44 08/20/18 09:19 Morphine IV 08/20/18 23:59 2 mg Q4H PRN Administration Pain, Moderate (4-6) Naloxone HCl 0.1 mg 08/19/18 23:48 Narcan 0.4 Mg/1 Ml IV Q2MIN PRN Res Rate </= 8 or 02 SAT < 92% Ondansetron HCl 4 mg 08/19/18 23:44 Zofran IV Q8H PRN Nausea And Vomiting Oxycodone/Acetaminophen 1 tab 08/19/18 23:44 Percocet 5/325 PO Q6H PRN Pain, Moderate (4-6) Sodium Chloride 10 ml 08/20/18 10:00 08/20/18 09:20 Sodium Chloride Flush Syringe 10 Ml IV Not Given BID [facility] Sodium Chloride 10 ml 08/19/18 23:44 Sodium Chloride Flush Syringe 10 Ml IV PRN PRN LINE FLUSH
--- NOTE | 2018-08-20 15:00 | Progress Note ---
Assessment and Plan Assessment and plan: Right humeral fracture - Orthopedics was consulted and I believe he is going to do surgery today - Patient is nothing by mouth Diabetes mellitus - Sliding scale insulin, Accu-Chek and adjust insulin as needed. Hypertension - On Norvasc and amlodipine - Controlled DVT prophylaxis - We'll put her on chemical prophylaxis after surgery PTOT consult Disposition; per clinical course History Interval history: Patient was seen and evaluated this morning, patient has pain when she tries to move his right leg. Hospitalist Physical - Physical exam Narrative exam: Not in cardiopulmonary distress. The patient appeared well nourished and normally developed. Vital signs as documented. Head exam is unremarkable. No scleral icterus . Neck is without jugular venous distension, thyromegaly, or carotid bruits. Lungs are clear to auscultation. Cardiac exam reveals regular rate and Rhythm. Abdominal exam reveals normal bowel sounds, no masses, no organomegaly and no aortic enlargement. Extremities pain on passive or active movement of the right lower extremity ADVERTISING REP: Alert and oriented 3. No focal weakness. - Constitutional Vitals: Temp Pulse Resp BP Pulse Ox 98.9 F 75 18 127/75 94 08/20/18 11:08 08/20/18 11:13 08/20/18 11:08 08/20/18 11:08 08/20/18 11:13 Results - Labs CBC & Chem 7: 08/20/18 04:42 08/20/18 04:42 Labs: Laboratory Last Values WBC 4.7 K/mm3 (4.5-11.0) 08/20/18 04:42 RBC 3.52 M/mm3 (3.65-5.03) L 08/20/18 04:42 Hgb 10.9 gm/dl (10.1-14.3) 08/20/18 04:42 Hct 31.9 % (30.3-42.9) 08/20/18 04:42 MCV 91 fl (79-97) 08/20/18 04:42 MCH 31 pg (28-32) 08/20/18 04:42 MCHC 34 % (30-34) 08/20/18 04:42 RDW 15.8 % (13.2-15.2) H 08/20/18 04:42 Plt Count 147 K/mm3 (140-440) 08/20/18 04:42 Lymph % (Auto) 31.1 % (13.4-35.0) 08/20/18 04:42 [place] % (Auto) 10.0 % (0.0-7.3) H 08/20/18 04:42 Eos % (Auto) 0.7 % (0.0-4.3) 08/20/18 04:42 Baso % (Auto) 0.4 % (0.0-1.8) 08/20/18 04:42 Lymph # 1.5 K/mm3 (1.2-5.4) 08/20/18 04:42 [place] # 0.5 K/mm3 (0.0-0.8) 08/20/18 04:42 Eos # 0.0 K/mm3 (0.0-0.4) 08/20/18 04:42 Baso # 0.0 K/mm3 (0.0-0.1) 08/20/18 04:42 Seg Neutrophils % 57.8 % (40.0-70.0) 08/20/18 04:42 Seg Neutrophils # 2.7 K/mm3 (1.8-7.7) 08/20/18 04:42 PT 13.8 Sec. (12.2-14.9) 08/19/18 22:43 INR 1.00 (0.87-1.13) 08/19/18 22:43 APTT 30.0 Sec. (24.2-36.6) 08/19/18 22:43 Sodium 137 mmol/L (137-145) 08/20/18 04:42 Potassium 3.4 mmol/L (3.6-5.0) L 08/20/18 04:42 Chloride 100.6 mmol/L (98-107) 08/20/18 04:42 Carbon Dioxide 25 mmol/L (22-30) 08/20/18 04:42 15 mmol/L 08/20/18 04:42 BUN 9 mg/dL (7-17) 08/20/18 04:42 0.5 mg/dL (0.7-1.2) L 08/20/18 04:42 Estimated GFR > 60 ml/min 08/20/18 04:42 18 % 08/20/18 04:42 Glucose 212 mg/dL (65-100) H 08/20/18 04:42 POC Glucose 157 (70-105) H 08/20/18 12:00 10.3 % (4-6) H 08/20/18 00:08 Calcium 8.4 mg/dL (8.4-10.2) 08/20/18 04:42 Triglycerides 38 mg/dL (2-149) 08/19/18 Unknown Cholesterol 116 mg/dL (50-199) 08/19/18 Unknown 30 mg/dL (50-130) L 08/19/18 Unknown 81 mg/dL (40-59) H 08/19/18 Unknown 1.43 % 08/19/18 Unknown Active Medications - Current Medications Current Medications: Generic Name Dose Route Start Last Admin Trade Name Freq PRN Reason Stop Dose Admin Acetaminophen 650 mg 08/19/18 23:44 Tylenol PO Q4H PRN Pain MILD(1-3)/Fever >100.5/PARKER Amlodipine Besylate 5 mg 08/20/18 10:00 08/20/18 09:20 Norvasc PO Not Given DAILY [facility] Dextrose 50 ml 08/20/18 00:04 D50w (25gm) Syringe IV PRN PRN Hypoglycemia Docusate Sodium 100 mg 08/20/18 10:00 08/20/18 09:20 Colace PO Not Given BID [facility] Enoxaparin Sodium 40 mg 08/20/18 10:00 08/20/18 10:17 Lovenox SUB-Q Not Given QDAY [facility] Hydralazine HCl 10 mg 08/20/18 00:48 Apresoline IV Q4H PRN Blood Pressure Hydrochlorothiazide 25 mg 08/20/18 10:00 08/20/18 09:20 Hctz PO Not Given QDAY [facility] Hydromorphone HCl 0.5 mg 08/19/18 23:47 Dilaudid IV 08/20/18 23:59 Q3H PRN Pain, Moderate (4-6) Sodium Chloride 1,000 mls @ 100 mls/hr 08/19/18 23:45 08/20/18 10:14 Nacl 0.9% 1000 Ml IV 100 mls/hr DIRECT JOANIE Administration Insulin Human Lispro 0 unit 08/20/18 06:00 08/20/18 12:40 Humalog SUB-Q Not Given Q6HR [facility] Protocol Morphine Sulfate 2 mg 08/19/18 23:44 08/20/18 09:19 Morphine IV 08/20/18 23:59 2 mg Q4H PRN Administration Pain, Moderate (4-6) Naloxone HCl 0.1 mg 08/19/18 23:48 Narcan 0.4 Mg/1 Ml IV Q2MIN PRN Res Rate </= 8 or 02 SAT < 92% Ondansetron HCl 4 mg 08/19/18 23:44 Zofran IV Q8H PRN Nausea And Vomiting Oxycodone/Acetaminophen 1 tab 08/19/18 23:44 Percocet 5/325 PO Q6H PRN Pain, Moderate (4-6) Sodium Chloride 10 ml 08/20/18 10:00 08/20/18 09:20 Sodium Chloride Flush Syringe 10 Ml IV Not Given BID JOANIE Sodium Chloride 10 ml 08/19/18 23:44 Sodium Chloride Flush Syringe 10 Ml IV PRN PRN LINE FLUSH Nutrition/Malnutrition Assess - Dietary Evaluation Nutrition/Malnutrition Findings: Nutrition Notes Start: 08/20/18 14:31 Freq: Status: Active Protocol: Document 08/20/18 14:31 RM (Rec: 08/20/18 14:32 RM [id number]) Nutrition Notes Need for Assessment generated from: MD Order Initial or Follow up Brief Note Current Diagnosis Diabetes,Hypertension Other Pertinent Diagnosis Noncompliant w/HTN medication Labs/Tests A1c 10.3 Subjective/Other Information Consulted for DM diet education and screened for new onset DM. Pt crying and speaking w/ family on phone at time of visit. Nutrition Intervention Follow-Up By: 08/21/18 Additional Comments Follow for DM diet education
[2018-08-20] MEDS ORDERED: DIPRIVAN 10 MG/ML IV ONE (17:03)
[2018-08-20] MEDS ORDERED: SUBLIMAZE ONE ×2 (17:03→19:48)
[2018-08-20] MEDS ORDERED: ROBINUL ONE (17:10)
[2018-08-20] MEDS ORDERED: XYLOCAINE MPF 2% ONE (17:10)
[2018-08-20] MEDS ORDERED: DECADRON ONE (17:10)
[2018-08-20] MEDS ORDERED: ZOFRAN ONE (17:10)
[2018-08-20] MEDS ORDERED: NEO SYNEPHRINE/NS Syringe(OR USE) IV ONE (17:10)
[2018-08-20] MEDS ORDERED: ZEMURON IV ONE (17:10)
[2018-08-20] MEDS ORDERED: VERSED ONE (17:23)
[2018-08-20] MEDS ORDERED: LACTATED RINGERS 1,000 ML ONE (17:36)
--- NOTE | 2018-08-20 17:36 | Anesthesia Consultation ---
Anesthesia Consult and Med Hx - Airway Anesthetic Teeth Evaluation: Edentulous (lower gum edentulous) ROM Head & Neck: Adequate Mental/Hyoid Distance: Adequate Mallampati Class: Class II Intubation Access Assessment: Good - Pulmonary Exam CTA: Yes - Cardiac Exam Cardiac Exam: RRR - Pre-Operative Health Status ASA Pre-Surgery Classification: ASA2 Proposed Anesthetic Plan: General - Pulmonary Hx Smoking: Yes COPD: No - Cardiovascular System Hx Hypertension: Yes - Central Nervous System Hx Psychiatric Problems: Yes - Endocrine Hx Non-Insulin Dependent Diabetes: Yes - Other Systems Hx Cancer: No - Additional Comments Anesthesia Medical History Comments: Patient with hx DM, HTN, Depression , current smoker s/p ground level fall resulting in femur fracture
--- NOTE | 2018-08-20 17:36 | Anesthesia Day of Surgery ---
Anesthesia Day of Surgery - Day of Surgery Patient Examined: Yes Patient H&P Reviewed: Yes Patient is NPO: Yes
[2018-08-20] MEDS ORDERED: DILAUDID IV PRN (17:37)
[2018-08-20] MEDS ORDERED: ZOFRAN IV PRN (17:37)
[2018-08-20] MEDS ORDERED: ANCEF/STERILE WATER 2 GM/20 ML 2 GM/20 ML SYRINGE IV ONE (17:59)
[2018-08-20] MEDS ORDERED: TORADOL IV ONE (18:24)
[2018-08-20] MEDS ORDERED: MARCAINE 0.5% INFILTRATI ONE ×2 (18:24→19:32)
[2018-08-20] MEDS ORDERED: NACL 0.9% 250ML IV ONE (18:24)
[2018-08-20] MEDS ORDERED: MORPHINE IM ONE (18:24)
[2018-08-20] MEDS ORDERED: DILAUDID ONE (18:46)
[2018-08-20] MEDS ORDERED: MORPHINE ONE (19:32)
[2018-08-20] MEDS ORDERED: TORADOL ONE (19:32)
[2018-08-20] MEDS ORDERED: NACL 0.9% 250ML 250 ML ONE (19:33)
--- NOTE | 2018-08-20 19:59 | Procedure Note ---
Date of procedure: 08/20/18 Pre-op diagnosis: Displaced distal third right femur fracture Post-op diagnosis: same Procedure: Closed reduction and insertion of intramedullary nail right femur Procedure The patient was brought to the OR and placed on the OR table in the supine position following induction and intubation by anesthesia the patient's right lower extremity was prepped from the hip down to the right foot. A timeout procedure was done to identify the patient and the correct operative site. The leg was exsanguinated followed by inflation of the pneumatic tourniquet to 300 mmHg. An incision was made at the inferior pole of the patella and taken down distally to the tibial tubercle incision was carried through skin and through the patella tendon with the knee in a 90 flexed position a guide pin was inserted under C-arm visualization care was taken to visualize both in the AP and lateral planes next the guidepin was then overreamed following this a guidewire was inserted into the distal fragment and across to fracture approximately the wire was then placed in the proximal femur just at the level of the lesser trochanter Distal femur was sequentially reamed up to a 13.5 mm millimeter diameter measuring the length of the jesus a 400 mm long x 12mm jesus was selected again with the knee and a 90 flexed position the intramedullary jesus was inserted in a retrograde manner into the distal femur across the fracture site and into the proximal fragment Using the targeting device was placed into the distal femur fragment along the lateral border measuring the lengths a 75 and a 70 mm long screws were selected next the knee and leg was brought into full extension traction was placed on the leg to reduce the distal femur fracture into a more reduced position Again using the C-arm fluoroscope a proximal locking screw was inserted measuring 32 mm in length following this the wound was copiously irrigated the patellar tendon was repaired along with the soft tissues. post op Dressings were applied the patient tolerated the procedure there were no complication. He was extubated and was taken to postanesthesia recovery in stable condition Anesthesia: GETA Surgeon: JULY TENA (Marya Herron, 1st assistant chief nursing officer) Estimated blood loss: 50-100ml Pathology: none Condition: stable Disposition: PACU
[2018-08-20] MEDS ORDERED: SODIUM CHLORIDE FLUSH SYRINGE 10 ML IV NR (20:00)
[2018-08-21] MEDS: SODIUM CHLORIDE FLUSH SYRINGE 10 ML IV SCH ×3 (00:46→22:01)
[2018-08-21] MEDS: HumaLOG SUB-Q SCH ×4 (00:58→17:02)
[2018-08-21] MEDS: MORPHINE IV PRN ×3 (00:59→22:13)
[2018-08-21] MEDS: NACL 0.9% 1000 ML 1,000 ML IV SCH (06:30)
[2018-08-21 07:49] LABS: Basophils % (Auto) 0.2 % (0.0-1.8); Hematocrit 24.1 % (30.3-42.9); Hemoglobin 8.2 gm/dl (10.1-14.3); Lymphocytes # (Auto) 0.9 K/mm3 (1.2-5.4); Lymphocytes % (Auto) 17.9 % (13.4-35.0); Mean Corpuscular HGB Conc 34 % (30-34); Mean Corpuscular Volume 92 fl (79-97); Monocytes # (Auto) 0.6 K/mm3 (0.0-0.8); Monocytes % (Auto) 11.5 % (0.0-7.3); Platelet Count 125 K/mm3 (140-440); Red Blood Count 2.64 M/mm3 (3.65-5.03); Red Cell Distribution Width 15.7 % (13.2-15.2)
[2018-08-21 08:05] LABS: BUN/Creatinine Ratio 15; Blood Urea Nitrogen 15 mg/dL (7-17); Calcium 8.4 mg/dL (8.4-10.2); Hemolysis Index 0
[2018-08-21] MEDS: LOVENOX SUB-Q SCH (09:47)
[2018-08-21] MEDS: COLACE PO SCH ×2 (09:50→22:01)
[2018-08-21] MEDS: NORVASC PO SCH (10:48)
[2018-08-21] MEDS: HCTZ PO SCH (10:48)
--- NOTE | 2018-08-21 15:13 | Progress Note ---
Assessment and Plan Assessment and plan: Right humeral fracture - Orthopedics was consulted and had surgery yesterday - Patient is nothing by mouth Diabetes mellitus - Sliding scale insulin, Accu-Chek and adjust insulin as needed. Hypertension - On Norvasc and amlodipine - Controlled DVT prophylaxis - We'll put her on chemical prophylaxis after surgery PTOT consult Disposition; patient prefer to go home with home PT. History Interval history: Patient was seen and evaluated this morning, patient has pain. Hospitalist Physical - Physical exam Narrative exam: Not in cardiopulmonary distress. The patient appeared well nourished and normally developed. Vital signs as documented. Head exam is unremarkable. No scleral icterus . Neck is without jugular venous distension, thyromegaly, or carotid bruits. Lungs are clear to auscultation. Cardiac exam reveals regular rate and Rhythm. Abdominal exam reveals normal bowel sounds, no masses, no organomegaly and no aortic enlargement. Extremities s/p surgery of the right femur [employer]AF[employer]: Alert and oriented 3. No focal weakness. - Constitutional Vitals: Temp Pulse Resp BP Pulse Ox 98.4 F 106 H 19 110/69 97 08/21/18 11:20 08/21/18 11:20 08/21/18 11:20 08/21/18 11:20 08/21/18 11:20 Results - Labs CBC & Chem 7: 08/21/18 07:26 08/21/18 07:26 Labs: Laboratory Last Values WBC 5.2 K/mm3 (4.5-11.0) 08/21/18 07:26 RBC 2.64 M/mm3 (3.65-5.03) L 08/21/18 07:26 Hgb 8.2 gm/dl (10.1-14.3) L 08/21/18 07:26 Hct 24.1 % (30.3-42.9) L D 08/21/18 07:26 MCV 92 fl (79-97) 08/21/18 07:26 MCH 31 pg (28-32) 08/21/18 07:26 MCHC 34 % (30-34) 08/21/18 07:26 RDW 15.7 % (13.2-15.2) H 08/21/18 07:26 Plt Count 125 K/mm3 (140-440) L 08/21/18 07:26 Lymph % (Auto) 17.9 % (13.4-35.0) 08/21/18 07:26 [place] % (Auto) 11.5 % (0.0-7.3) H 08/21/18 07:26 Eos % (Auto) 0.0 % (0.0-4.3) 08/21/18 07:26 Baso % (Auto) 0.2 % (0.0-1.8) 08/21/18 07:26 Lymph # 0.9 K/mm3 (1.2-5.4) L 08/21/18 07:26 Power # 0.6 K/mm3 (0.0-0.8) 08/21/18 07:26 Eos # 0.0 K/mm3 (0.0-0.4) 08/21/18 07:26 Baso # 0.0 K/mm3 (0.0-0.1) 08/21/18 07:26 Seg Neutrophils % 70.4 % (40.0-70.0) H 08/21/18 07:26 Seg Neutrophils # 3.7 K/mm3 (1.8-7.7) 08/21/18 07:26 PT 13.8 Sec. (12.2-14.9) 08/19/18 22:43 INR 1.00 (0.87-1.13) 08/19/18 22:43 APTT 30.0 Sec. (24.2-36.6) 08/19/18 22:43 Sodium 139 mmol/L (137-145) 08/21/18 07:26 Potassium 3.7 mmol/L (3.6-5.0) 08/21/18 07:26 Chloride 103.1 mmol/L (98-107) 08/21/18 07:26 Carbon Dioxide 23 mmol/L (22-30) 08/21/18 07:26 17 mmol/L 08/21/18 07:26 BUN 15 mg/dL (7-17) 08/21/18 07:26 1.0 mg/dL (0.7-1.2) D 08/21/18 07:26 Estimated GFR > 60 ml/min 08/21/18 07:26 15 % 08/21/18 07:26 Glucose 228 mg/dL (65-100) H 08/21/18 07:26 POC Glucose 247 (70-105) H 08/21/18 11:08 10.3 % (4-6) H 08/20/18 00:08 Calcium 8.4 mg/dL (8.4-10.2) 08/21/18 07:26 Triglycerides 38 mg/dL (2-149) 08/19/18 Unknown Cholesterol 116 mg/dL (50-199) 08/19/18 Unknown 30 mg/dL (50-130) L 08/19/18 Unknown 81 mg/dL (40-59) H 08/19/18 Unknown 1.43 % 08/19/18 Unknown Active Medications - Current Medications Current Medications: Generic Name Dose Route Start Last Admin Trade Name Freq PRN Reason Stop Dose Admin Acetaminophen 650 mg 08/19/18 23:44 Tylenol PO Q4H PRN Pain MILD(1-3)/Fever >100.5/PARKER Acetaminophen/Hydrocodone Bitart 1 each 08/20/18 19:53 [place] 5/325 PO Q6H PRN Pain, Moderate (4-6) Amlodipine Besylate 5 mg 08/20/18 10:00 08/20/18 09:20 Norvasc PO Not Given DAILY JOANIE Dextrose 50 ml 08/20/18 00:04 D50w (25gm) Syringe IV PRN PRN Hypoglycemia Docusate Sodium 100 mg 08/20/18 10:00 08/21/18 09:50 Colace PO 100 mg BID JOANIE Administration Enoxaparin Sodium 40 mg 08/20/18 10:00 08/21/18 09:47 Lovenox SUB-Q 40 mg QDAY JOANIE Administration Hydralazine HCl 10 mg 08/20/18 00:48 Apresoline IV Q4H PRN Blood Pressure Hydrochlorothiazide 25 mg 08/20/18 10:00 08/20/18 09:20 Hctz PO Not Given QDAY JOANIE Hydromorphone HCl 0.5 mg 08/20/18 17:37 Dilaudid IV Q10MIN PRN Pain , Severe (7-10) Sodium Chloride 1,000 mls @ 999 mls/hr 08/21/18 09:00 Nacl 0.9% 1000 Ml IV DIRECT JOANIE Insulin Human Lispro 0 unit 08/20/18 06:00 08/21/18 06:30 Humalog SUB-Q 3 unit Q6HR JOANIE Administration Protocol Morphine Sulfate 2 mg 08/20/18 19:53 Morphine IV Q4H PRN Pain, Moderate (4-6) Morphine Sulfate 4 mg 08/20/18 19:53 08/21/18 06:59 Morphine IV 4 mg Q4H PRN Administration Pain , Severe (7-10) Naloxone HCl 0.1 mg 08/19/18 23:48 Narcan 0.4 Mg/1 Ml IV Q2MIN PRN Res Rate </= 8 or 02 SAT < 92% Ondansetron HCl 4 mg 08/19/18 23:44 Zofran IV Q8H PRN Nausea And Vomiting Ondansetron HCl 4 mg 08/20/18 17:37 Zofran IV ONCE PRN Nausea And Vomiting Oxycodone/Acetaminophen 1 tab 08/19/18 23:44 Percocet 5/325 PO Q6H PRN Pain, Moderate (4-6) Sodium Chloride 10 ml 08/20/18 10:00 08/21/18 00:46 Sodium Chloride Flush Syringe 10 Ml IV Not Given BID JOANIE Sodium Chloride 10 ml 08/19/18 23:44 Sodium Chloride Flush Syringe 10 Ml IV PRN PRN LINE FLUSH Sodium Chloride 10 ml 08/20/18 20:00 Sodium Chloride Flush Syringe 10 Ml IV 08/21/18 19:59 PRN NR Nutrition/Malnutrition Assess - Dietary Evaluation Nutrition/Malnutrition Findings: Nutrition Notes Start: 08/20/18 14:31 Freq: Status: Active Protocol: Document 08/20/18 14:31 RM (Rec: 08/20/18 14:32 RM [id number]) Nutrition Notes Need for Assessment generated from: MD Order Initial or Follow up Brief Note Current Diagnosis Diabetes,Hypertension Other Pertinent Diagnosis Noncompliant w/HTN medication Labs/Tests A1c 10.3 Subjective/Other Information Consulted for DM diet education and screened for new onset DM. Pt crying and speaking w/ family on phone at time of visit. Nutrition Intervention Follow-Up By: 08/21/18 Additional Comments Follow for DM diet education
[2018-08-22] MEDS: HumaLOG SUB-Q SCH ×4 (03:16→23:02)
[2018-08-22] MEDS: MORPHINE IV PRN ×4 (03:17→20:52)
[2018-08-22] MEDS: NACL 0.9% 1000 ML 1,000 ML IV SCH (03:20)
[2018-08-22 04:46] LABS: Basophils % (Auto) 0.5 % (0.0-1.8); Eosinophils % (Auto) 0.8 % (0.0-4.3); Hematocrit 20.9 % (30.3-42.9); Lymphocytes # (Auto) 1.9 K/mm3 (1.2-5.4); Lymphocytes % (Auto) 37.3 % (13.4-35.0); Mean Corpuscular HGB Conc 34 % (30-34); Mean Corpuscular Volume 92 fl (79-97); Monocytes # (Auto) 0.5 K/mm3 (0.0-0.8); Monocytes % (Auto) 10.4 % (0.0-7.3); Platelet Count 106 K/mm3 (140-440); Red Blood Count 2.27 M/mm3 (3.65-5.03)
[2018-08-22 05:11] LABS: BUN/Creatinine Ratio 25; Blood Urea Nitrogen 15 mg/dL (7-17); Calcium 8.1 mg/dL (8.4-10.2); Hemolysis Index 3
--- NOTE | 2018-08-22 07:19 | XRay Report ---
INTRAOPERATIVE RIGHT FEMUR RADIOGRAPHS INDICATION: Right femoral fracture. COMPARISON: Yesterday. IMAGES/CINE CLIPS: 6 FINDINGS: Intraoperative fluoroscopic guidance provided. Images demonstrate a right femoral medullary jesus anchored by 2 proximal and distal screws and stabilizing known comminuted femoral shaft fracture. Knee degenerative changes also seen. CONCLUSION: Intraoperative fluoroscopic guidance provided, as described. Thank you for the opportunity to participate in this patient's care.
[2018-08-22] MEDS ORDERED: NACL 0.9% 500 ML 500 ML IV ONE (07:51)
[2018-08-22] MEDS: LOVENOX SUB-Q SCH (10:23)
[2018-08-22] MEDS: HCTZ PO SCH (10:50)
[2018-08-22] MEDS: NORVASC PO SCH (10:50)
[2018-08-22] MEDS: COLACE PO SCH ×2 (10:58→21:00)
--- NOTE | 2018-08-22 13:49 | Progress Note ---
Assessment and Plan Assessment and plan: Right humeral fracture - Orthopedics was consulted and had surgery yesterday - Patient is nothing by mouth Diabetes mellitus - Sliding scale insulin, Accu-Chek and adjust insulin as needed. Hypertension - On Norvasc and amlodipine - Controlled Acute blood loss anemia - Hemoglobin this morning was 7.0 - Will transfuse 1 unit of blood DVT prophylaxis - We'll put her on chemical prophylaxis after surgery PTOT consult Disposition; Will be discharged to rehab. History Interval history: Patient was seen and evaluated this morning, patient is complaining pain at the site of surgery. Hospitalist Physical - Physical exam Narrative exam: Not in cardiopulmonary distress. The patient appeared well nourished and normally developed. Vital signs as documented. Head exam is unremarkable. No scleral icterus . Neck is without jugular venous distension, thyromegaly, or carotid bruits. Lungs are clear to auscultation. Cardiac exam reveals regular rate and Rhythm. Abdominal exam reveals normal bowel sounds, no masses, no organomegaly and no aortic enlargement. 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 No focal weakness. - Constitutional Vitals: Temp Pulse Resp BP Pulse Ox 98.5 F 101 H 18 112/56 100 08/22/18 13:10 08/22/18 13:10 08/22/18 13:10 08/22/18 13:10 08/22/18 12:26 Results - Labs CBC & Chem 7: 08/22/18 04:31 08/22/18 04:31 Labs: Laboratory Last Values WBC 5.2 K/mm3 (4.5-11.0) 08/22/18 04:31 RBC 2.27 M/mm3 (3.65-5.03) L 08/22/18 04:31 Hgb 7.0 gm/dl (10.1-14.3) L 08/22/18 04:31 Hct 20.9 % (30.3-42.9) L 08/22/18 04:31 MCV 92 fl (79-97) 08/22/18 04:31 MCH 31 pg (28-32) 08/22/18 04:31 MCHC 34 % (30-34) 08/22/18 04:31 RDW 16.0 % (13.2-15.2) H 08/22/18 04:31 Plt Count 106 K/mm3 (140-440) L 08/22/18 04:31 Lymph % (Auto) 37.3 % (13.4-35.0) H 08/22/18 04:31 [place] % (Auto) 10.4 % (0.0-7.3) H 08/22/18 04:31 Eos % (Auto) 0.8 % (0.0-4.3) 08/22/18 04:31 Baso % (Auto) 0.5 % (0.0-1.8) 08/22/18 04:31 Lymph # 1.9 K/mm3 (1.2-5.4) 08/22/18 04:31 [place] # 0.5 K/mm3 (0.0-0.8) 08/22/18 04:31 Eos # 0.0 K/mm3 (0.0-0.4) 08/22/18 04:31 Baso # 0.0 K/mm3 (0.0-0.1) 08/22/18 04:31 Seg Neutrophils % 51.0 % (40.0-70.0) 08/22/18 04:31 Seg Neutrophils # 2.6 K/mm3 (1.8-7.7) 08/22/18 04:31 PT 13.8 Sec. (12.2-14.9) 08/19/18 22:43 INR 1.00 (0.87-1.13) 08/19/18 22:43 APTT 30.0 Sec. (24.2-36.6) 08/19/18 22:43 Sodium 138 mmol/L (137-145) 08/22/18 04:31 Potassium 3.4 mmol/L (3.6-5.0) L 08/22/18 04:31 Chloride 103.6 mmol/L (98-107) 08/22/18 04:31 Carbon Dioxide 21 mmol/L (22-30) L 08/22/18 04:31 17 mmol/L 08/22/18 04:31 BUN 15 mg/dL (7-17) 08/22/18 04:31 0.6 mg/dL (0.7-1.2) L 08/22/18 04:31 Estimated GFR > 60 ml/min 08/22/18 04:31 25 % 08/22/18 04:31 Glucose 209 mg/dL (65-100) H 08/22/18 04:31 POC Glucose 200 (70-105) H 08/22/18 11:07 10.3 % (4-6) H 08/20/18 00:08 Calcium 8.1 mg/dL (8.4-10.2) L 08/22/18 04:31 Triglycerides 38 mg/dL (2-149) 08/19/18 Unknown Cholesterol 116 mg/dL (50-199) 08/19/18 Unknown 30 mg/dL (50-130) L 08/19/18 Unknown 81 mg/dL (40-59) H 08/19/18 Unknown 1.43 % 08/19/18 Unknown Blood Type O POSITIVE 08/22/18 08:40 Antibody Screen Negative 08/22/18 08:40 Crossmatch See Detail 08/22/18 08:40 Active Medications - Current Medications Current Medications: Generic Name Dose Route Start Last Admin Trade Name Freq PRN Reason Stop Dose Admin Acetaminophen 650 mg 08/19/18 23:44 Tylenol PO Q4H PRN Pain MILD(1-3)/Fever >100.5/PARKER Acetaminophen/Hydrocodone Bitart 1 each 08/20/18 19:53 [place] 5/325 PO Q6H PRN Pain, Moderate (4-6) Amlodipine Besylate 5 mg 08/20/18 10:00 08/21/18 10:48 Norvasc PO Not Given DAILY JOANIE Dextrose 50 ml 08/20/18 00:04 D50w (25gm) Syringe IV PRN PRN Hypoglycemia Docusate Sodium 100 mg 08/20/18 10:00 08/21/18 22:01 Colace PO 100 mg BID JOANIE Administration Enoxaparin Sodium 40 mg 08/20/18 10:00 08/22/18 10:23 Lovenox SUB-Q 40 mg QDAY JOANIE Administration Hydralazine HCl 10 mg 08/20/18 00:48 Apresoline IV Q4H PRN Blood Pressure Hydrochlorothiazide 25 mg 08/20/18 10:00 08/21/18 10:48 Hctz PO Not Given QDAY JOANIE Hydromorphone HCl 0.5 mg 08/20/18 17:37 Dilaudid IV Q10MIN PRN Pain , Severe (7-10) Sodium Chloride 1,000 mls @ 999 mls/hr 08/21/18 09:00 08/22/18 05:42 Nacl 0.9% 1000 Ml IV Infused DIRECT JOANIE Infusion Insulin Human Lispro 0 unit 08/20/18 06:00 08/22/18 12:50 Humalog SUB-Q 2 unit Q6HR JOANIE Administration Protocol Morphine Sulfate 2 mg 08/20/18 19:53 08/22/18 03:17 Morphine IV 2 mg Q4H PRN Administration Pain, Moderate (4-6) Morphine Sulfate 4 mg 08/20/18 19:53 08/22/18 06:50 Morphine IV 4 mg Q4H PRN Administration Pain , Severe (7-10) Naloxone HCl 0.1 mg 08/19/18 23:48 Narcan 0.4 Mg/1 Ml IV Q2MIN PRN Res Rate </= 8 or 02 SAT < 92% Ondansetron HCl 4 mg 08/19/18 23:44 Zofran IV Q8H PRN Nausea And Vomiting Ondansetron HCl 4 mg 08/20/18 17:37 Zofran IV ONCE PRN Nausea And Vomiting Oxycodone/Acetaminophen 1 tab 08/19/18 23:44 Percocet 5/325 PO Q6H PRN Pain, Moderate (4-6) Sodium Chloride 10 ml 08/20/18 10:00 08/21/18 22:01 Sodium Chloride Flush Syringe 10 Ml IV 10 ml BID JOANIE Administration Sodium Chloride 10 ml 08/19/18 23:44 Sodium Chloride Flush Syringe 10 Ml IV PRN PRN LINE FLUSH Nutrition/Malnutrition Assess - Dietary Evaluation Nutrition/Malnutrition Findings: Nutrition Notes Start: 08/20/18 14:31 Freq: Status: Active Protocol: Document 08/21/18 15:52 RM (Rec: 08/21/18 15:55 RM [id number]) Nutrition Notes Initial or Follow up Assessment Current Diagnosis Diabetes,Hypertension Other Pertinent Diagnosis Noncompliant w/HTN medication Current Diet Regular Subjective/Other Information Reviewed DM diet education. Gave handout. #1 Nutrition Diagnosis Food and nutrition-related knowledge deficit Etiology lack of prior education As Evidenced by Signs and Symptoms no prior knowledge of need for food and nutrition recommendations Nutrition Intervention Change Diet Order: Consistent CHO Teaching Recipient Patient Learning Readiness Good Teaching Methods Discussion,Handout Response to Teaching Verbalize understanding Education Handouts Provided Carbohydrate Counting for People with Diabetes Barriers to Learning No Barriers RD phone number provided Yes Patient aware of follow up options Yes Goal #1 Utilize carbohydrate counting Revisit per MD consult or patient Sign Off request:
--- NOTE | 2018-08-22 13:53 | Progress Note ---
Assessment and Plan Status post iron male right femur postop day 2 doing okay continue with physical therapy and observation Subjective Date of service: 08/22/18 Interval history: Complaining of right thigh pain Objective Vital signs: Vital Signs - 12hr 08/22/18 08/22/18 08/22/18 05:33 08:07 09:03 Temperature 98.8 F 98.4 F Pulse Rate 91 H 92 H Respiratory 18 18 Rate Blood Pressure 104/52 95/43 O2 Sat by Pulse 99 99 99 Oximetry 08/22/18 08/22/18 08/22/18 11:55 12:06 12:09 Temperature 97.7 F 97.7 F 97.7 F Pulse Rate 79 91 H 89 Respiratory 18 18 18 Rate Blood Pressure 101/65 110/65 110/65 O2 Sat by Pulse 95 100 100 Oximetry 08/22/18 08/22/18 08/22/18 12:26 12:40 13:10 Temperature 97.9 F 97.9 F 98.5 F Pulse Rate 91 H 103 H 101 H Respiratory 18 18 18 Rate Blood Pressure 107/64 106/56 112/56 O2 Sat by Pulse 100 Oximetry Narrative Exam: Postoperative dressings intact to right thigh - Labs CBC & BMP: 08/22/18 04:31 08/22/18 04:31 Labs: Abnormal lab results 08/21/18 08/21/18 08/22/18 Range/Units 16:56 22:26 04:31 RBC 2.27 L (3.65-5.03) M/mm3 Hgb 7.0 L (10.1-14.3) gm/dl Hct 20.9 L (30.3-42.9) % RDW 16.0 H (13.2-15.2) % Plt Count 106 L (140-440) K/mm3 Lymph % (Auto) 37.3 H (13.4-35.0) % [place] % (Auto) 10.4 H (0.0-7.3) % Potassium (3.6-5.0) mmol/L Carbon Dioxide (22-30) mmol/L Creatinine (0.7-1.2) mg/dL Glucose (65-100) mg/dL POC Glucose 351 H 195 H (70-105) Calcium (8.4-10.2) mg/dL Crossmatch 05/01/0208/22/18 08/22/18 Range/Units 04:31 06:54 08:40 RBC (3.65-5.03) M/mm3 Hgb (10.1-14.3) gm/dl Hct (30.3-42.9) % RDW (13.2-15.2) % Plt Count (140-440) K/mm3 Lymph % (Auto) (13.4-35.0) % [place] % (Auto) (0.0-7.3) % Potassium 3.4 L (3.6-5.0) mmol/L Carbon Dioxide 21 L (22-30) mmol/L Creatinine 0.6 L (0.7-1.2) mg/dL Glucose 209 H (65-100) mg/dL POC Glucose 173 H (70-105) Calcium 8.1 L (8.4-10.2) mg/dL Crossmatch See Detail 08/22/18 08/22/18 Range/Units 09:41 11:07 RBC (3.65-5.03) M/mm3 Hgb (10.1-14.3) gm/dl Hct (30.3-42.9) % RDW (13.2-15.2) % Plt Count (140-440) K/mm3 Lymph % (Auto) (13.4-35.0) % [place] % (Auto) (0.0-7.3) % Potassium (3.6-5.0) mmol/L Carbon Dioxide (22-30) mmol/L Creatinine (0.7-1.2) mg/dL Glucose (65-100) mg/dL POC Glucose 197 H 200 H (70-105) Calcium (8.4-10.2) mg/dL Crossmatch
[2018-08-22 17:49] LABS: Hematocrit 25.1 % (30.3-42.9); Hemoglobin 8.2 gm/dl (10.1-14.3)
[2018-08-22] MEDS: SODIUM CHLORIDE FLUSH SYRINGE 10 ML IV SCH (22:38)
[2018-08-23] MEDS: NACL 0.9% 1000 ML 1,000 ML IV SCH ×2 (02:30→19:56)
[2018-08-23] MEDS: HumaLOG SUB-Q SCH ×4 (04:11→17:42)
[2018-08-23] MEDS: MORPHINE IV PRN ×2 (04:15→09:17)
[2018-08-23 05:48] LABS: Basophils % (Auto) 0.4 % (0.0-1.8); Eosinophils # (Auto) 0.2 K/mm3 (0.0-0.4); Eosinophils % (Auto) 2.6 % (0.0-4.3); Hematocrit 23.5 % (30.3-42.9); Hemoglobin 8.1 gm/dl (10.1-14.3); Lymphocytes # (Auto) 1.5 K/mm3 (1.2-5.4); Lymphocytes % (Auto) 26.7 % (13.4-35.0); Mean Corpuscular HGB Conc 34 % (30-34); Mean Corpuscular Volume 92 fl (79-97); Monocytes # (Auto) 0.6 K/mm3 (0.0-0.8); Monocytes % (Auto) 10.4 % (0.0-7.3); Platelet Count 125 K/mm3 (140-440); Red Blood Count 2.56 M/mm3 (3.65-5.03); Red Cell Distribution Width 15.4 % (13.2-15.2)
[2018-08-23 06:08] LABS: BUN/Creatinine Ratio 15; Blood Urea Nitrogen 6 mg/dL (7-17); Calcium 8.3 mg/dL (8.4-10.2); Hemolysis Index 2
[2018-08-23] MEDS ORDERED: PERCOCET 5/325 PO PRN ×2 (09:01)
[2018-08-23] MEDS: NORVASC PO SCH (09:10)
[2018-08-23] MEDS: COLACE PO SCH ×2 (09:10→21:12)
[2018-08-23] MEDS: HCTZ PO SCH (09:10)
[2018-08-23] MEDS: LOVENOX SUB-Q SCH (09:11)
[2018-08-23] MEDS: SODIUM CHLORIDE FLUSH SYRINGE 10 ML IV SCH ×2 (09:12→21:15)
[2018-08-23] MEDS: NORCO 5/325 PO PRN (12:41)
--- NOTE | 2018-08-23 14:02 | Progress Note ---
Assessment and Plan Status post iron male right femur postop day 2 doing okay continue with physical therapy and observation Subjective Date of service: 08/23/18 Interval history: doing well, minimal c/o's noted... Objective Vital signs: Vital Signs - 12hr 08/23/18 08/23/18 08/23/18 04:15 04:41 04:45 Temperature 100.1 F H Pulse Rate 94 H Respiratory 16 20 17 Rate Blood Pressure 131/72 Blood Pressure [Right] O2 Sat by Pulse 95 Oximetry 08/23/18 08/23/18 08/23/18 06:36 06:45 07:44 Temperature 99.5 F 99.8 F H Pulse Rate 94 H Respiratory 18 Rate Blood Pressure 122/70 Blood Pressure 130/68 [Right] O2 Sat by Pulse 94 Oximetry 08/23/18 09:10 Temperature Pulse Rate Respiratory Rate Blood Pressure 130/68 Blood Pressure [Right] O2 Sat by Pulse Oximetry Incision: healing, clean and dry Weight bearing status: as tolerated - Labs CBC & BMP: 08/23/18 05:40 08/23/18 05:40 Labs: Abnormal lab results 08/22/18 08/22/18 08/22/18 Range/Units 08:40 17:13 17:23 RBC (3.65-5.03) M/mm3 Hgb 8.2 L (10.1-14.3) gm/dl Hct 25.1 L (30.3-42.9) % RDW (13.2-15.2) % Plt Count (140-440) K/mm3 [place] % (Auto) (0.0-7.3) % Potassium (3.6-5.0) mmol/L BUN (7-17) mg/dL Creatinine (0.7-1.2) mg/dL Glucose (65-100) mg/dL POC Glucose 214 H (70-105) Calcium (8.4-10.2) mg/dL Crossmatch See Detail 08/22/18 08/23/18 08/23/18 Range/Units 22:07 05:26 05:40 RBC 2.56 L (3.65-5.03) M/mm3 Hgb 8.1 L (10.1-14.3) gm/dl Hct 23.5 L (30.3-42.9) % RDW 15.4 H (13.2-15.2) % Plt Count 125 L (140-440) K/mm3 [place] % (Auto) 10.4 H (0.0-7.3) % Potassium (3.6-5.0) mmol/L BUN (7-17) mg/dL Creatinine (0.7-1.2) mg/dL Glucose (65-100) mg/dL POC Glucose 220 H 177 H (70-105) Calcium (8.4-10.2) mg/dL Crossmatch 08/23/18 08/23/18 Range/Units 05:40 11:58 RBC (3.65-5.03) M/mm3 Hgb (10.1-14.3) gm/dl Hct (30.3-42.9) % RDW (13.2-15.2) % Plt Count (140-440) K/mm3 [place] % (Auto) (0.0-7.3) % Potassium 3.5 L (3.6-5.0) mmol/L BUN 6 L (7-17) mg/dL Creatinine 0.4 L (0.7-1.2) mg/dL Glucose 181 H (65-100) mg/dL POC Glucose 227 H (70-105) Calcium 8.3 L (8.4-10.2) mg/dL Crossmatch
--- NOTE | 2018-08-23 14:11 | Progress Note ---
Assessment and Plan Assessment and plan: Right humeral fracture - Orthopedics was consulted and had surgery yesterday - Pain control Diabetes mellitus - Sliding scale insulin, Accu-Chek and adjust insulin as needed. Hypertension - On Norvasc and amlodipine - Controlled Acute blood loss anemia - Hemoglobin yesterday morning was 7.0 and transfused with 1 unit of packed RBC and his morning hemoglobin was 8.1 - Continue to monitor DVT prophylaxis - We'll put her on chemical prophylaxis after surgery PTOT consult Disposition; patient is going to be discharged to rehabilitation, pending authorization from her insurance. History Interval history: Patient was seen and evaluated this morning, patient is complaining pain at the site of surgery. Hospitalist Physical - Physical exam Narrative exam: Not in cardiopulmonary distress. The patient appeared well nourished and normally developed. Vital signs as documented. Head exam is unremarkable. No scleral icterus . Neck is without jugular venous distension, thyromegaly, or carotid bruits. Lungs are clear to auscultation. Cardiac exam reveals regular rate and Rhythm. Abdominal exam reveals normal bowel sounds, no masses, no organomegaly and no aortic enlargement. 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 No focal weakness. - Constitutional Vitals: Temp Pulse Resp BP Pulse Ox 99.8 F H 94 H 18 130/68 94 08/23/18 07:44 08/23/18 07:44 08/23/18 07:44 08/23/18 09:10 08/23/18 07:44 Results - Labs CBC & Chem 7: 08/23/18 05:40 08/23/18 05:40 Labs: Laboratory Last Values WBC 5.7 K/mm3 (4.5-11.0) 08/23/18 05:40 RBC 2.56 M/mm3 (3.65-5.03) L 08/23/18 05:40 Hgb 8.1 gm/dl (10.1-14.3) L 08/23/18 05:40 Hct 23.5 % (30.3-42.9) L 08/23/18 05:40 MCV 92 fl (79-97) 08/23/18 05:40 MCH 31 pg (28-32) 08/23/18 05:40 MCHC 34 % (30-34) 08/23/18 05:40 RDW 15.4 % (13.2-15.2) H 08/23/18 05:40 Plt Count 125 K/mm3 (140-440) L 08/23/18 05:40 Lymph % (Auto) 26.7 % (13.4-35.0) 08/23/18 05:40 [place] % (Auto) 10.4 % (0.0-7.3) H 08/23/18 05:40 Eos % (Auto) 2.6 % (0.0-4.3) 08/23/18 05:40 Baso % (Auto) 0.4 % (0.0-1.8) 08/23/18 05:40 Lymph # 1.5 K/mm3 (1.2-5.4) 08/23/18 05:40 [place] # 0.6 K/mm3 (0.0-0.8) 08/23/18 05:40 Eos # 0.2 K/mm3 (0.0-0.4) 08/23/18 05:40 Baso # 0.0 K/mm3 (0.0-0.1) 08/23/18 05:40 Seg Neutrophils % 59.9 % (40.0-70.0) 08/23/18 05:40 Seg Neutrophils # 3.4 K/mm3 (1.8-7.7) 08/23/18 05:40 PT 13.8 Sec. (12.2-14.9) 08/19/18 22:43 INR 1.00 (0.87-1.13) 08/19/18 22:43 APTT 30.0 Sec. (24.2-36.6) 08/19/18 22:43 Sodium 139 mmol/L (137-145) 08/23/18 05:40 Potassium 3.5 mmol/L (3.6-5.0) L 08/23/18 05:40 Chloride 104.4 mmol/L (98-107) 08/23/18 05:40 Carbon Dioxide 24 mmol/L (22-30) 08/23/18 05:40 14 mmol/L 08/23/18 05:40 BUN 6 mg/dL (7-17) L 08/23/18 05:40 0.4 mg/dL (0.7-1.2) L 08/23/18 05:40 Estimated GFR > 60 ml/min 08/23/18 05:40 15 % 08/23/18 05:40 Glucose 181 mg/dL (65-100) H 08/23/18 05:40 POC Glucose 227 (70-105) H 08/23/18 11:58 10.3 % (4-6) H 08/20/18 00:08 Calcium 8.3 mg/dL (8.4-10.2) L 08/23/18 05:40 Triglycerides 38 mg/dL (2-149) 08/19/18 Unknown Cholesterol 116 mg/dL (50-199) 08/19/18 Unknown 30 mg/dL (50-130) L 08/19/18 Unknown 81 mg/dL (40-59) H 08/19/18 Unknown 1.43 % 08/19/18 Unknown Blood Type O POSITIVE 08/22/18 08:40 Antibody Screen Negative 08/22/18 08:40 Crossmatch See Detail 08/22/18 08:40 Active Medications - Current Medications Current Medications: Generic Name Dose Route Start Last Admin Trade Name Freq PRN Reason Stop Dose Admin Acetaminophen 650 mg 08/19/18 23:44 Tylenol PO Q4H PRN Pain MILD(1-3)/Fever >100.5/PARKER Acetaminophen/Hydrocodone Bitart 1 each 08/20/18 19:53 08/23/18 12:41 [place] 5/325 PO 1 each Q6H PRN Administration Pain, Moderate (4-6) Amlodipine Besylate 5 mg 08/20/18 10:00 08/23/18 09:10 Norvasc PO 5 mg DAILY JOANIE Administration Dextrose 50 ml 08/20/18 00:04 D50w (25gm) Syringe IV PRN PRN Hypoglycemia Docusate Sodium 100 mg 08/20/18 10:00 08/23/18 09:10 Colace PO 100 mg BID JOANIE Administration Enoxaparin Sodium 40 mg 08/20/18 10:00 08/23/18 09:11 Lovenox SUB-Q 40 mg QDAY JOANIE Administration Hydralazine HCl 10 mg 08/20/18 00:48 Apresoline IV Q4H PRN Blood Pressure Hydrochlorothiazide 25 mg 08/20/18 10:00 08/23/18 09:10 Hctz PO 25 mg QDAY JOANIE Administration Hydromorphone HCl 1 mg 08/23/18 12:35 Dilaudid IV Q4H PRN Pain , Severe (7-10) Sodium Chloride 1,000 mls @ 999 mls/hr 08/21/18 09:00 08/23/18 02:30 Nacl 0.9% 1000 Ml IV 999 mls/hr DIRECT JOANIE Administration Insulin Human Lispro 0 unit 08/20/18 06:00 08/23/18 12:19 Humalog SUB-Q 2 unit Q6HR JOANIE Administration Protocol Morphine Sulfate 2 mg 08/20/18 19:53 08/23/18 09:17 Morphine IV 2 mg Q4H PRN Administration Pain, Moderate (4-6) Naloxone HCl 0.1 mg 08/19/18 23:48 Narcan 0.4 Mg/1 Ml IV Q2MIN PRN Res Rate </= 8 or 02 SAT < 92% Ondansetron HCl 4 mg 08/19/18 23:44 Zofran IV Q8H PRN Nausea And Vomiting Oxycodone/Acetaminophen 2 tab 08/23/18 09:01 Percocet 5/325 PO Q4H PRN Pain, Moderate (4-6) Sodium Chloride 10 ml 08/20/18 10:00 08/23/18 09:12 Sodium Chloride Flush Syringe 10 Ml IV 10 ml BID JOANIE Administration Sodium Chloride 10 ml 08/19/18 23:44 Sodium Chloride Flush Syringe 10 Ml IV PRN PRN LINE FLUSH Nutrition/Malnutrition Assess - Dietary Evaluation Nutrition/Malnutrition Findings: Nutrition Notes Start: 08/20/18 14:31 Freq: Status: Active Protocol: Document 08/21/18 15:52 RM (Rec: 08/21/18 15:55 RM [id number]) Nutrition Notes Initial or Follow up Assessment Current Diagnosis Diabetes,Hypertension Other Pertinent Diagnosis Noncompliant w/HTN medication Current Diet Regular Subjective/Other Information Reviewed DM diet education. Gave handout. #1 Nutrition Diagnosis Food and nutrition-related knowledge deficit Etiology lack of prior education As Evidenced by Signs and Symptoms no prior knowledge of need for food and nutrition recommendations Nutrition Intervention Change Diet Order: Consistent CHO Teaching Recipient Patient Learning Readiness Good Teaching Methods Discussion,Handout Response to Teaching Verbalize understanding Education Handouts Provided Carbohydrate Counting for People with Diabetes Barriers to Learning No Barriers RD phone number provided Yes Patient aware of follow up options Yes Goal #1 Utilize carbohydrate counting Revisit per MD consult or patient Sign Off request:
[2018-08-23] MEDS: DILAUDID IV PRN ×2 (15:30→21:12)
[2018-08-23] MEDS: BENADRYL PO PRN (19:47)
[2018-08-23] MEDS ORDERED: DILAUDID ONE (21:08)
[2018-08-24] MEDS: DILAUDID IV PRN ×4 (00:58→20:34)
[2018-08-24] MEDS: HumaLOG SUB-Q SCH ×6 (00:59→21:46)
[2018-08-24 05:11] LABS: Hematocrit 23.6 % (30.3-42.9)
[2018-08-24] MEDS: LOVENOX SUB-Q SCH (09:00)
[2018-08-24] MEDS: NORVASC PO SCH (09:00)
[2018-08-24] MEDS: SODIUM CHLORIDE FLUSH SYRINGE 10 ML IV SCH (09:00)
[2018-08-24] MEDS: COLACE PO SCH ×2 (09:00→21:47)
[2018-08-24] MEDS: HCTZ PO SCH (09:00)
--- NOTE | 2018-08-24 12:06 | Progress Note ---
Assessment and Plan Assessment and plan: Right humeral fracture - Orthopedics was consulted and Closed reduction and insertion of intramedullary nail right femur was done on 08/20 - Pain control Diabetes mellitus - Sliding scale insulin, Accu-Chek and adjust insulin as needed. Hypertension - On Norvasc and amlodipine - Controlled Acute blood loss anemia - Hemoglobin yesterday morning was 7.0 and transfused with 1 unit of packed RBC and currently above 8 - Continue to monitor DVT prophylaxis - Lovenox PTOT consult Disposition; patient is going to be discharged to rehabilitation, pending authorization from her insurance. History Interval history: Patient was seen and evaluated this morning, patient is complaining pain at the site of surgery. Hospitalist Physical - Physical exam Narrative exam: Not in cardiopulmonary distress. The patient appeared well nourished and normally developed. Vital signs as documented. Head exam is unremarkable. No scleral icterus . Neck is without jugular venous distension, thyromegaly, or carotid bruits. Lungs are clear to auscultation. Cardiac exam reveals regular rate and Rhythm. Abdominal exam reveals normal bowel sounds, no masses, no organomegaly and no aortic enlargement. 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 No focal weakness. - Constitutional Vitals: Temp Pulse Resp BP Pulse Ox 99.2 F 86 20 115/65 94 08/24/18 07:05 08/24/18 07:05 08/24/18 08:48 08/24/18 07:05 08/24/18 07:05 Results - Labs CBC & Chem 7: 08/24/18 04:18 08/23/18 05:40 Labs: Laboratory Last Values WBC 5.7 K/mm3 (4.5-11.0) 08/23/18 05:40 RBC 2.56 M/mm3 (3.65-5.03) L 08/23/18 05:40 Hgb 8.0 gm/dl (10.1-14.3) L 08/24/18 04:18 Hct 23.6 % (30.3-42.9) L 08/24/18 04:18 MCV 92 fl (79-97) 08/23/18 05:40 MCH 31 pg (28-32) 08/23/18 05:40 MCHC 34 % (30-34) 08/23/18 05:40 RDW 15.4 % (13.2-15.2) H 08/23/18 05:40 Plt Count 125 K/mm3 (140-440) L 08/23/18 05:40 Lymph % (Auto) 26.7 % (13.4-35.0) 08/23/18 05:40 [place] % (Auto) 10.4 % (0.0-7.3) H 08/23/18 05:40 Eos % (Auto) 2.6 % (0.0-4.3) 08/23/18 05:40 Baso % (Auto) 0.4 % (0.0-1.8) 08/23/18 05:40 Lymph # 1.5 K/mm3 (1.2-5.4) 08/23/18 05:40 [place] # 0.6 K/mm3 (0.0-0.8) 08/23/18 05:40 Eos # 0.2 K/mm3 (0.0-0.4) 08/23/18 05:40 Baso # 0.0 K/mm3 (0.0-0.1) 08/23/18 05:40 Seg Neutrophils % 59.9 % (40.0-70.0) 08/23/18 05:40 Seg Neutrophils # 3.4 K/mm3 (1.8-7.7) 08/23/18 05:40 PT 13.8 Sec. (12.2-14.9) 08/19/18 22:43 INR 1.00 (0.87-1.13) 08/19/18 22:43 APTT 30.0 Sec. (24.2-36.6) 08/19/18 22:43 Sodium 139 mmol/L (137-145) 08/23/18 05:40 Potassium 3.5 mmol/L (3.6-5.0) L 08/23/18 05:40 Chloride 104.4 mmol/L (98-107) 08/23/18 05:40 Carbon Dioxide 24 mmol/L (22-30) 08/23/18 05:40 14 mmol/L 08/23/18 05:40 BUN 6 mg/dL (7-17) L 08/23/18 05:40 0.4 mg/dL (0.7-1.2) L 08/23/18 05:40 Estimated GFR > 60 ml/min 08/23/18 05:40 15 % 08/23/18 05:40 Glucose 181 mg/dL (65-100) H 08/23/18 05:40 POC Glucose 161 (70-105) H 08/24/18 11:18 10.3 % (4-6) H 08/20/18 00:08 Calcium 8.3 mg/dL (8.4-10.2) L 08/23/18 05:40 Triglycerides 38 mg/dL (2-149) 08/19/18 Unknown Cholesterol 116 mg/dL (50-199) 08/19/18 Unknown 30 mg/dL (50-130) L 08/19/18 Unknown 81 mg/dL (40-59) H 08/19/18 Unknown 1.43 % 08/19/18 Unknown Blood Type O POSITIVE 08/22/18 08:40 Antibody Screen Negative 08/22/18 08:40 Crossmatch See Detail 08/22/18 08:40 Active Medications - Current Medications Current Medications: Generic Name Dose Route Start Last Admin Trade Name Freq PRN Reason Stop Dose Admin Acetaminophen 650 mg 08/19/18 23:44 Tylenol PO Q4H PRN Pain MILD(1-3)/Fever >100.5/PARKER Acetaminophen/Hydrocodone Bitart 1 each 08/20/18 19:53 08/23/18 12:41 [place] 5/325 PO 1 each Q6H PRN Administration Pain, Moderate (4-6) Amlodipine Besylate 5 mg 08/20/18 10:00 08/24/18 09:00 Norvasc PO 5 mg DAILY JOANIE Administration Dextrose 50 ml 08/20/18 00:04 D50w (25gm) Syringe IV PRN PRN Hypoglycemia Diphenhydramine HCl 25 mg 08/23/18 18:39 08/23/18 19:47 Benadryl PO 25 mg Q6H PRN Administration Itching Docusate Sodium 100 mg 08/20/18 10:00 08/24/18 09:00 Colace PO 100 mg BID JOANIE Administration Enoxaparin Sodium 40 mg 08/20/18 10:00 08/24/18 09:00 Lovenox SUB-Q 40 mg QDAY JOANIE Administration Hydralazine HCl 10 mg 08/20/18 00:48 Apresoline IV Q4H PRN Blood Pressure Hydrochlorothiazide 25 mg 08/20/18 10:00 08/24/18 09:00 Hctz PO 25 mg QDAY JOANIE Administration Hydromorphone HCl 1 mg 08/23/18 12:35 08/24/18 08:48 Dilaudid IV 1 mg Q4H PRN Administration Pain , Severe (7-10) Sodium Chloride 1,000 mls @ 999 mls/hr 08/21/18 09:00 08/23/18 19:56 Nacl 0.9% 1000 Ml IV 999 mls/hr DIRECT JOANIE Administration Insulin Human Lispro 0 unit 08/20/18 06:00 08/24/18 08:55 Humalog SUB-Q 1 unit Q6HR JOANIE Administration Protocol Morphine Sulfate 2 mg 08/20/18 19:53 08/23/18 09:17 Morphine IV 2 mg Q4H PRN Administration Pain, Moderate (4-6) Naloxone HCl 0.1 mg 08/19/18 23:48 Narcan 0.4 Mg/1 Ml IV Q2MIN PRN Res Rate </= 8 or 02 SAT < 92% Ondansetron HCl 4 mg 08/19/18 23:44 Zofran IV Q8H PRN Nausea And Vomiting Oxycodone/Acetaminophen 2 tab 08/23/18 09:01 Percocet 5/325 PO Q4H PRN Pain, Moderate (4-6) Sodium Chloride 10 ml 08/20/18 10:00 08/24/18 09:00 Sodium Chloride Flush Syringe 10 Ml IV 10 ml BID JOANIE Administration Sodium Chloride 10 ml 08/19/18 23:44 Sodium Chloride Flush Syringe 10 Ml IV PRN PRN LINE FLUSH Nutrition/Malnutrition Assess - Dietary Evaluation Nutrition/Malnutrition Findings: Nutrition Notes Start: 08/20/18 14:31 Freq: Status: Active Protocol: Document 08/21/18 15:52 RM (Rec: 08/21/18 15:55 RM [id number]) Nutrition Notes Initial or Follow up Assessment Current Diagnosis Diabetes,Hypertension Other Pertinent Diagnosis Noncompliant w/HTN medication Current Diet Regular Subjective/Other Information Reviewed DM diet education. Gave handout. #1 Nutrition Diagnosis Food and nutrition-related knowledge deficit Etiology lack of prior education As Evidenced by Signs and Symptoms no prior knowledge of need for food and nutrition recommendations Nutrition Intervention Change Diet Order: Consistent CHO Teaching Recipient Patient Learning Readiness Good Teaching Methods Discussion,Handout Response to Teaching Verbalize understanding Education Handouts Provided Carbohydrate Counting for People with Diabetes Barriers to Learning No Barriers RD phone number provided Yes Patient aware of follow up options Yes Goal #1 Utilize carbohydrate counting Revisit per MD consult or patient Sign Off request:
[2018-08-24] MEDS: BENADRYL PO PRN (20:35)
[2018-08-25] MEDS: BENADRYL PO PRN ×2 (02:22→20:11)
[2018-08-25] MEDS: SODIUM CHLORIDE FLUSH SYRINGE 10 ML IV SCH ×3 (02:23→22:47)
[2018-08-25] MEDS: DILAUDID IV PRN ×4 (02:23→20:11)
[2018-08-25 04:30] LABS: Hematocrit 24.6 % (30.3-42.9); Hemoglobin 8.5 gm/dl (10.1-14.3)
--- NOTE | 2018-08-25 08:35 | Progress Note ---
Assessment and Plan Assessment and plan: 63-year-old -[place] female who is an ongoing smoker with history of diabetes, hypertension noncompliant with medications presented to [facility] ED sp mechanical fall x/o R leg pain, Past History Past Medical History: diabetes, hypertension, other (anxiety, OCD, depression) Right femur fracture - Orthopedics was consulted and Closed reduction and insertion of intramedullary nail right femur was done on 08/20 - Pain control Diabetes mellitus - Sliding scale insulin, Accu-Chek and adjust insulin as needed. Hypertension - On Norvasc and amlodipine - Controlled Acute blood loss anemia Expected outcome of surgery, status post 1 unit packed red blood cell - Continue to monitor DVT prophylaxis - Lovenox PTOT consult Disposition; patient is going to be discharged to rehabilitation, pending authorization from her insurance. Right thigh blisters, continuing wound care History Interval history: Complaining of right thigh blisters Review of systems Constitutional: No fevers, no malaise, no joint pains CVS: No chest pain, no orthopnea, no dyspnea on exertion, no pedal edema GI: No abdominal pain, no diarrhea, no vomiting, no constipation Respiratory: no wheezing, no coughing Hospitalist Physical - Physical exam Narrative exam: General.: Appears well, no distress, nontoxic HEENT: Moist mucous membranes, extraocular muscles intact, no lymphadenopathy Neck: supple Cardiac: S1-S2 heard Lungs: clear to auscultation bilaterally Abdomen: soft , nontender, nondistended, bowel sounds positive Extremities: no edema clubbing or cyanosis Skin: no rash or lesions Tender blisters around the right thigh dressing, no erythema or surrounding warmth or tenderness Neurologic: no gross focal deficits Psych: calm, and cooperative - Constitutional Vitals: Temp Pulse Resp BP Pulse Ox 99.4 F 83 18 126/74 93 08/25/18 06:24 08/25/18 06:24 08/25/18 06:24 08/25/18 06:24 08/25/18 06:24 Results - Labs CBC & Chem 7: 08/26/18 04:08 08/26/18 04:08 Labs: Laboratory Last Values WBC 5.7 K/mm3 (4.5-11.0) 08/23/18 05:40 RBC 2.56 M/mm3 (3.65-5.03) L 08/23/18 05:40 Hgb 8.5 gm/dl (10.1-14.3) L 08/25/18 04:19 Hct 24.6 % (30.3-42.9) L 08/25/18 04:19 MCV 92 fl (79-97) 08/23/18 05:40 MCH 31 pg (28-32) 08/23/18 05:40 MCHC 34 % (30-34) 08/23/18 05:40 RDW 15.4 % (13.2-15.2) H 08/23/18 05:40 Plt Count 125 K/mm3 (140-440) L 08/23/18 05:40 Lymph % (Auto) 26.7 % (13.4-35.0) 08/23/18 05:40 [place] % (Auto) 10.4 % (0.0-7.3) H 08/23/18 05:40 Eos % (Auto) 2.6 % (0.0-4.3) 08/23/18 05:40 Baso % (Auto) 0.4 % (0.0-1.8) 08/23/18 05:40 Lymph # 1.5 K/mm3 (1.2-5.4) 08/23/18 05:40 [place] # 0.6 K/mm3 (0.0-0.8) 08/23/18 05:40 Eos # 0.2 K/mm3 (0.0-0.4) 08/23/18 05:40 Baso # 0.0 K/mm3 (0.0-0.1) 08/23/18 05:40 Seg Neutrophils % 59.9 % (40.0-70.0) 08/23/18 05:40 Seg Neutrophils # 3.4 K/mm3 (1.8-7.7) 08/23/18 05:40 PT 13.8 Sec. (12.2-14.9) 08/19/18 22:43 INR 1.00 (0.87-1.13) 08/19/18 22:43 APTT 30.0 Sec. (24.2-36.6) 08/19/18 22:43 Sodium 139 mmol/L (137-145) 08/23/18 05:40 Potassium 3.5 mmol/L (3.6-5.0) L 08/23/18 05:40 Chloride 104.4 mmol/L (98-107) 08/23/18 05:40 Carbon Dioxide 24 mmol/L (22-30) 08/23/18 05:40 14 mmol/L 08/23/18 05:40 BUN 6 mg/dL (7-17) L 08/23/18 05:40 0.4 mg/dL (0.7-1.2) L 08/23/18 05:40 Estimated GFR > 60 ml/min 08/23/18 05:40 15 % 08/23/18 05:40 Glucose 181 mg/dL (65-100) H 08/23/18 05:40 POC Glucose 187 (70-105) H 08/25/18 08:17 10.3 % (4-6) H 08/20/18 00:08 Calcium 8.3 mg/dL (8.4-10.2) L 08/23/18 05:40 Triglycerides 38 mg/dL (2-149) 08/19/18 Unknown Cholesterol 116 mg/dL (50-199) 08/19/18 Unknown 30 mg/dL (50-130) L 08/19/18 Unknown 81 mg/dL (40-59) H 08/19/18 Unknown 1.43 % 08/19/18 Unknown Blood Type O POSITIVE 08/22/18 08:40 Antibody Screen Negative 08/22/18 08:40 Crossmatch See Detail 08/22/18 08:40 Active Medications - Current Medications Current Medications: Generic Name Dose Route Start Last Admin Trade Name Freq PRN Reason Stop Dose Admin Acetaminophen 650 mg 08/19/18 23:44 08/24/18 17:39 Tylenol PO 650 mg Q4H PRN Administration Pain MILD(1-3)/Fever >100.5/PARKER Acetaminophen/Hydrocodone Bitart 1 each 08/20/18 19:53 08/23/18 12:41 [place] 5/325 PO 1 each Q6H PRN Administration Pain, Moderate (4-6) Amlodipine Besylate 5 mg 08/20/18 10:00 08/24/18 09:00 Norvasc PO 5 mg DAILY JOANIE Administration Dextrose 50 ml 08/20/18 00:04 D50w (25gm) Syringe IV PRN PRN Hypoglycemia Diphenhydramine HCl 25 mg 08/23/18 18:39 08/25/18 02:22 Benadryl PO 25 mg Q6H PRN Administration Itching Docusate Sodium 100 mg 08/20/18 10:00 08/24/18 21:47 Colace PO 100 mg BID JOANIE Administration Enoxaparin Sodium 40 mg 08/20/18 10:00 08/24/18 09:00 Lovenox SUB-Q 40 mg QDAY JOANIE Administration Hydralazine HCl 10 mg 08/20/18 00:48 Apresoline IV Q4H PRN Blood Pressure Hydrochlorothiazide 25 mg 08/20/18 10:00 08/24/18 09:00 Hctz PO 25 mg QDAY JOANIE Administration Hydromorphone HCl 1 mg 08/23/18 12:35 08/25/18 02:23 Dilaudid IV 1 mg Q4H PRN Administration Pain , Severe (7-10) Sodium Chloride 1,000 mls @ 999 mls/hr 08/21/18 09:00 08/23/18 19:56 Nacl 0.9% 1000 Ml IV 999 mls/hr DIRECT JOANIE Administration Insulin Human Lispro 0 unit 08/24/18 22:00 08/24/18 21:46 Humalog SUB-Q 2 unit ACHS JOANIE Administration Protocol Morphine Sulfate 2 mg 08/20/18 19:53 08/23/18 09:17 Morphine IV 2 mg Q4H PRN Administration Pain, Moderate (4-6) Naloxone HCl 0.1 mg 08/19/18 23:48 Narcan 0.4 Mg/1 Ml IV Q2MIN PRN Res Rate </= 8 or 02 SAT < 92% Ondansetron HCl 4 mg 08/19/18 23:44 Zofran IV Q8H PRN Nausea And Vomiting Oxycodone/Acetaminophen 2 tab 08/23/18 09:01 Percocet 5/325 PO Q4H PRN Pain, Moderate (4-6) Sodium Chloride 10 ml 08/20/18 10:00 08/25/18 02:23 Sodium Chloride Flush Syringe 10 Ml IV 10 ml BID JOANIE Administration Sodium Chloride 10 ml 08/19/18 23:44 Sodium Chloride Flush Syringe 10 Ml IV PRN PRN LINE FLUSH Nutrition/Malnutrition Assess - Dietary Evaluation Nutrition/Malnutrition Findings: Nutrition Notes Start: 08/20/18 14:31 Freq: Status: Active Protocol: Document 08/21/18 15:52 RM (Rec: 08/21/18 15:55 RM [id number]) Nutrition Notes Initial or Follow up Assessment Current Diagnosis Diabetes,Hypertension Other Pertinent Diagnosis Noncompliant w/HTN medication Current Diet Regular Subjective/Other Information Reviewed DM diet education. Gave handout. #1 Nutrition Diagnosis Food and nutrition-related knowledge deficit Etiology lack of prior education As Evidenced by Signs and Symptoms no prior knowledge of need for food and nutrition recommendations Nutrition Intervention Change Diet Order: Consistent CHO Teaching Recipient Patient Learning Readiness Good Teaching Methods Discussion,Handout Response to Teaching Verbalize understanding Education Handouts Provided Carbohydrate Counting for People with Diabetes Barriers to Learning No Barriers RD phone number provided Yes Patient aware of follow up options Yes Goal #1 Utilize carbohydrate counting Revisit per MD consult or patient Sign Off request:
[2018-08-25] MEDS: HCTZ PO SCH (09:10)
[2018-08-25] MEDS: LOVENOX SUB-Q SCH (09:10)
[2018-08-25] MEDS: NORVASC PO SCH (09:10)
[2018-08-25] MEDS: COLACE PO SCH ×2 (09:10→22:46)
[2018-08-25] MEDS: HumaLOG SUB-Q SCH ×4 (09:10→23:02)
[2018-08-26] MEDS: DILAUDID IV PRN ×6 (00:06→21:57)
[2018-08-26 04:41] LABS: BUN/Creatinine Ratio 18; Blood Urea Nitrogen 7 mg/dL (7-17); Calcium 9.2 mg/dL (8.4-10.2); Hemolysis Index 3
[2018-08-26 04:46] LABS: Basophils % (Auto) 0.4 % (0.0-1.8); Eosinophils # (Auto) 0.2 K/mm3 (0.0-0.4); Eosinophils % (Auto) 4.7 % (0.0-4.3); Hematocrit 24.9 % (30.3-42.9); Hemoglobin 8.4 gm/dl (10.1-14.3); Lymphocytes # (Auto) 1.6 K/mm3 (1.2-5.4); Lymphocytes % (Auto) 30.9 % (13.4-35.0); Mean Corpuscular HGB Conc 34 % (30-34); Mean Corpuscular Volume 92 fl (79-97); Monocytes # (Auto) 0.8 K/mm3 (0.0-0.8); Monocytes % (Auto) 14.7 % (0.0-7.3); Platelet Count 187 K/mm3 (140-440); Red Blood Count 2.71 M/mm3 (3.65-5.03); Red Cell Distribution Width 15.7 % (13.2-15.2)
[2018-08-26] MEDS: HumaLOG SUB-Q SCH ×4 (08:10→22:35)
[2018-08-26] MEDS: NORVASC PO SCH (09:19)
[2018-08-26] MEDS: COLACE PO SCH ×2 (09:19→22:01)
[2018-08-26] MEDS: SODIUM CHLORIDE FLUSH SYRINGE 10 ML IV SCH ×2 (09:20→22:00)
[2018-08-26] MEDS: LOVENOX SUB-Q SCH (09:20)
[2018-08-26] MEDS: HCTZ PO SCH (09:20)
--- NOTE | 2018-08-26 11:42 | Progress Note ---
Assessment and Plan Assessment and plan: 63-year-old -Mong[place] female who is an ongoing smoker with history of diabetes, hypertension noncompliant with medications presented to [facility] ED sp mechanical fall pw R leg pain, Past History Past Medical History: diabetes, hypertension, other (anxiety, OCD, depression) Right femur fracture - Orthopedics was consulted and Closed reduction and insertion of intramedullary nail right femur was done on 08/20 - Pain control R thigh blisters no evidence of infection -continue wound care Diabetes mellitus - Sliding scale insulin, Accu-Chek and adjust insulin as needed. Hypertension controlled on bp meds Acute blood loss anemia - sp 1 unit prbc, expected outcome of surgery - Continue to monitor DVT prophylaxis - Lovenox PTOT consult Disposition; patient is going to be discharged to rehabilitation, pending authorization from her insurance. History Interval history: Complaining of right thigh blisters Review of systems Constitutional: No fevers, no malaise, no joint pains CVS: No chest pain, no orthopnea, no dyspnea on exertion, no pedal edema GI: No abdominal pain, no diarrhea, no vomiting, no constipation Respiratory: no wheezing, no coughing Hospitalist Physical - Physical exam Narrative exam: General.: Appears well, no distress, nontoxic HEENT: Moist mucous membranes, extraocular muscles intact, no lymphadenopathy Neck: supple Cardiac: S1-S2 heard Lungs: clear to auscultation bilaterally Abdomen: soft , nontender, nondistended, bowel sounds positive Extremities: no edema clubbing or cyanosis Skin: no rash or lesions Tender blisters around the right thigh dressing, no erythema or surrounding warmth or tenderness Neurologic: no gross focal deficits Psych: calm, and cooperative - Constitutional Vitals: Temp Pulse Resp BP Pulse Ox 98.9 F 82 20 127/64 96 08/26/18 07:30 08/26/18 07:30 08/26/18 07:30 08/26/18 07:30 08/26/18 07:30 Results - Labs CBC & Chem 7: 08/26/18 04:08 08/26/18 04:08 Labs: Laboratory Last Values WBC 5.2 K/mm3 (4.5-11.0) 08/26/18 04:08 RBC 2.71 M/mm3 (3.65-5.03) L 08/26/18 04:08 Hgb 8.4 gm/dl (10.1-14.3) L 08/26/18 04:08 Hct 24.9 % (30.3-42.9) L 08/26/18 04:08 MCV 92 fl (79-97) 08/26/18 04:08 MCH 31 pg (28-32) 08/26/18 04:08 MCHC 34 % (30-34) 08/26/18 04:08 RDW 15.7 % (13.2-15.2) H 08/26/18 04:08 Plt Count 187 K/mm3 (140-440) 08/26/18 04:08 Lymph % (Auto) 30.9 % (13.4-35.0) 08/26/18 04:08 [place] % (Auto) 14.7 % (0.0-7.3) H 08/26/18 04:08 Eos % (Auto) 4.7 % (0.0-4.3) H 08/26/18 04:08 Baso % (Auto) 0.4 % (0.0-1.8) 08/26/18 04:08 Lymph # 1.6 K/mm3 (1.2-5.4) 08/26/18 04:08 [place] # 0.8 K/mm3 (0.0-0.8) 08/26/18 04:08 Eos # 0.2 K/mm3 (0.0-0.4) 08/26/18 04:08 Baso # 0.0 K/mm3 (0.0-0.1) 08/26/18 04:08 Seg Neutrophils % 49.3 % (40.0-70.0) 08/26/18 04:08 Seg Neutrophils # 2.5 K/mm3 (1.8-7.7) 08/26/18 04:08 PT 13.8 Sec. (12.2-14.9) 08/19/18 22:43 INR 1.00 (0.87-1.13) 08/19/18 22:43 APTT 30.0 Sec. (24.2-36.6) 08/19/18 22:43 Sodium 136 mmol/L (137-145) L 08/26/18 04:08 Potassium 3.1 mmol/L (3.6-5.0) L 08/26/18 04:08 Chloride 94.5 mmol/L (98-107) L 08/26/18 04:08 Carbon Dioxide 29 mmol/L (22-30) 08/26/18 04:08 16 mmol/L 08/26/18 04:08 BUN 7 mg/dL (7-17) 08/26/18 04:08 0.4 mg/dL (0.7-1.2) L 08/26/18 04:08 Estimated GFR > 60 ml/min 08/26/18 04:08 18 % 08/26/18 04:08 Glucose 158 mg/dL (65-100) H 08/26/18 04:08 POC Glucose 197 (70-105) H 08/26/18 07:31 10.3 % (4-6) H 08/20/18 00:08 Calcium 9.2 mg/dL (8.4-10.2) 08/26/18 04:08 Triglycerides 38 mg/dL (2-149) 08/19/18 Unknown Cholesterol 116 mg/dL (50-199) 08/19/18 Unknown 30 mg/dL (50-130) L 08/19/18 Unknown 81 mg/dL (40-59) H 08/19/18 Unknown 1.43 % 08/19/18 Unknown Blood Type O POSITIVE 08/22/18 08:40 Antibody Screen Negative 08/22/18 08:40 Crossmatch See Detail 08/22/18 08:40 Active Medications - Current Medications Current Medications: Generic Name Dose Route Start Last Admin Trade Name Freq PRN Reason Stop Dose Admin Acetaminophen 650 mg 08/19/18 23:44 08/24/18 17:39 Tylenol PO 650 mg Q4H PRN Administration Pain MILD(1-3)/Fever >100.5/PARKER Acetaminophen/Hydrocodone Bitart 1 each 08/20/18 19:53 08/23/18 12:41 [place] 5/325 PO 1 each Q6H PRN Administration Pain, Moderate (4-6) Amlodipine Besylate 5 mg 08/20/18 10:00 08/26/18 09:19 Norvasc PO 5 mg DAILY JOANIE Administration Dextrose 50 ml 08/20/18 00:04 D50w (25gm) Syringe IV PRN PRN Hypoglycemia Diphenhydramine HCl 25 mg 08/23/18 18:39 08/25/18 20:11 Benadryl PO 25 mg Q6H PRN Administration Itching Docusate Sodium 100 mg 08/20/18 10:00 08/26/18 09:19 Colace PO 100 mg BID JOANIE Administration Enoxaparin Sodium 40 mg 08/20/18 10:00 08/26/18 09:20 Lovenox SUB-Q 40 mg QDAY JOANIE Administration Hydralazine HCl 10 mg 08/20/18 00:48 Apresoline IV Q4H PRN Blood Pressure Hydrochlorothiazide 25 mg 08/20/18 10:00 08/26/18 09:20 Hctz PO 25 mg QDAY JOANIE Administration Hydromorphone HCl 1 mg 08/23/18 12:35 08/26/18 09:19 Dilaudid IV 1 mg Q4H PRN Administration Pain , Severe (7-10) Sodium Chloride 1,000 mls @ 999 mls/hr 08/21/18 09:00 08/23/18 19:56 Nacl 0.9% 1000 Ml IV 999 mls/hr DIRECT JOANIE Administration Insulin Human Lispro 0 unit 08/24/18 22:00 08/26/18 08:10 Humalog SUB-Q 1 unit ACHS JOANIE Administration Protocol Morphine Sulfate 2 mg 08/20/18 19:53 08/23/18 09:17 Morphine IV 2 mg Q4H PRN Administration Pain, Moderate (4-6) Naloxone HCl 0.1 mg 08/19/18 23:48 Narcan 0.4 Mg/1 Ml IV Q2MIN PRN Res Rate </= 8 or 02 SAT < 92% Ondansetron HCl 4 mg 08/19/18 23:44 Zofran IV Q8H PRN Nausea And Vomiting Oxycodone/Acetaminophen 2 tab 08/23/18 09:01 Percocet 5/325 PO Q4H PRN Pain, Moderate (4-6) Sodium Chloride 10 ml 08/20/18 10:00 08/26/18 09:20 Sodium Chloride Flush Syringe 10 Ml IV 10 ml BID JOANIE Administration Sodium Chloride 10 ml 08/19/18 23:44 Sodium Chloride Flush Syringe 10 Ml IV PRN PRN LINE FLUSH Nutrition/Malnutrition Assess - Dietary Evaluation Nutrition/Malnutrition Findings: Nutrition Notes Start: 08/20/18 14:31 Freq: Status: Active Protocol: Document 08/21/18 15:52 RM (Rec: 08/21/18 15:55 RM [id number]) Nutrition Notes Initial or Follow up Assessment Current Diagnosis Diabetes,Hypertension Other Pertinent Diagnosis Noncompliant w/HTN medication Current Diet Regular Subjective/Other Information Reviewed DM diet education. Gave handout. #1 Nutrition Diagnosis Food and nutrition-related knowledge deficit Etiology lack of prior education As Evidenced by Signs and Symptoms no prior knowledge of need for food and nutrition recommendations Nutrition Intervention Change Diet Order: Consistent CHO Teaching Recipient Patient Learning Readiness Good Teaching Methods Discussion,Handout Response to Teaching Verbalize understanding Education Handouts Provided Carbohydrate Counting for People with Diabetes Barriers to Learning No Barriers RD phone number provided Yes Patient aware of follow up options Yes Goal #1 Utilize carbohydrate counting Revisit per MD consult or patient Sign Off request:
[2018-08-26] MEDS ORDERED: GLYCERIN ADULT 2 GM PR PRN (15:00)
--- NOTE | 2018-08-26 17:51 | Progress Note ---
Assessment and Plan Status post iron male right femur postop day 2 doing okay continue with physical therapy and observation Subjective Date of service: 08/26/18 Interval history: no c/o noted today Objective Vital signs: Vital Signs - 12hr 08/26/18 08/26/18 08/26/18 07:28 07:30 11:30 Temperature 98.9 F 98.9 F 98.8 F Pulse Rate 82 83 Respiratory 20 20 16 Rate Blood Pressure 127/64 Blood Pressure 127/64 103/58 [Right] O2 Sat by Pulse 96 97 Oximetry Narrative Exam: Postoperative dressings intact to right thigh - Labs CBC & BMP: 08/26/18 04:08 08/26/18 04:08 Labs: Abnormal lab results 08/25/18 08/26/18 08/26/18 Range/Units 22:06 04:08 04:08 RBC 2.71 L (3.65-5.03) M/mm3 Hgb 8.4 L (10.1-14.3) gm/dl Hct 24.9 L (30.3-42.9) % RDW 15.7 H (13.2-15.2) % [place] % (Auto) 14.7 H (0.0-7.3) % Eos % (Auto) 4.7 H (0.0-4.3) % Sodium 136 L (137-145) mmol/L Potassium 3.1 L (3.6-5.0) mmol/L Chloride 94.5 L (98-107) mmol/L Creatinine 0.4 L (0.7-1.2) mg/dL Glucose 158 H (65-100) mg/dL POC Glucose 183 H (70-105) 08/26/18 08/26/18 08/26/18 Range/Units 07:31 11:50 16:43 RBC (3.65-5.03) M/mm3 Hgb (10.1-14.3) gm/dl Hct (30.3-42.9) % RDW (13.2-15.2) % [place] % (Auto) (0.0-7.3) % Eos % (Auto) (0.0-4.3) % Sodium (137-145) mmol/L Potassium (3.6-5.0) mmol/L Chloride (98-107) mmol/L Creatinine (0.7-1.2) mg/dL Glucose (65-100) mg/dL POC Glucose 197 H 208 H 273 H (70-105)
[2018-08-26] MEDS ORDERED: LANTUS SUB-Q SCH (23:23)
[2018-08-27] MEDS: MORPHINE IV PRN (03:13)
[2018-08-27] MEDS: NORCO 5/325 PO PRN (04:04)
[2018-08-27] MEDS: BENADRYL PO PRN (04:04)
[2018-08-27] MEDS: SODIUM CHLORIDE FLUSH SYRINGE 10 ML IV SCH ×2 (04:37→10:21)
[2018-08-27 09:13] VITALS: BP 128/73
[2018-08-27] MEDS: NORVASC PO SCH (10:09)
[2018-08-27] MEDS: LOVENOX SUB-Q SCH (10:09)
[2018-08-27] MEDS: HCTZ PO SCH (10:09)
[2018-08-27] MEDS: COLACE PO SCH (10:10)
[2018-08-27] MEDS: HumaLOG SUB-Q SCH ×2 (10:10→12:06)
[2018-08-27] MEDS: DILAUDID IV PRN (10:14)
--- NOTE | 2018-08-27 10:56 | Discharge Summary ---
Providers - Providers Date of Admission: 08/19/18 23:44 Attending physician: BRIAN DOWNS MD 08/19/18 22:10 Consult to Physician [CONS] Stat Comment: Dr. Magaña spoke with Dr. Concepcion @ [phone] Consulting Provider: JULY CONCEPCION Physician Instructions: Reason For Exam: femur fx 08/20/18 00:04 Consult to Dietitian/Nutrition [CONS] Routine Physician Instructions: Reason For Exam: Reason for Consult: Diet education 08/20/18 19:53 Consult to Case Management [CONS] Routine Services Needed at Discharge: Home Health Services Physical Therapy Notified:: cm notified 08/20/18 19:55 Physical Therapy Evaluation and Treat [CONS] Routine Comment: Reason For Exam: post op evaluation Weight bearing status?: Full wt bearing Assistive devices?: Yes If so list: Walker 08/22/18 15:49 Occupational Therapy Evaluate and Treat [CONS] Routine Comment: Reason For Exam: generalized weakness 08/24/18 17:21 Consult to Wound/ET Nurse [CONS] Routine Reason For Exam: wound eval; RT THIGH BLISTERS Primary care physician: FULL STACK DEVELOPER Hospitalization Condition: Stable Hospital course: 63-year-old -Danish female who is an ongoing smoker with history of diabetes, hypertension noncompliant with medications presented to [facility] ED sp mechanical fall pw R leg pain, Past History Past Medical History: diabetes, hypertension, other (anxiety, OCD, depression) Right femur fracture - Orthopedics was consulted and Closed reduction and insertion of intramedullary nail right femur was done on 08/20 R thigh blisters no evidence of infection, likely due to irritation from dressing -continue wound care Diabetes mellitus - Sliding scale insulin, Accu-Chek and adjusted insulin as needed. Hypertension controlled on bp meds Acute blood loss anemia - sp 1 unit prbc, expected outcome of surgery DVT prophylaxis - Lovenox Disposition: [id number] Time spent for discharge: 33 mins Core Measure Documentation - Palliative Care Palliative Care/ Comfort Measures: Not Applicable - Core Measures Any of the following diagnoses?: none Exam - Physical Exam Narrative exam: General.: Appears well, no distress, nontoxic HEENT: Moist mucous membranes, extraocular muscles intact, no lymphadenopathy Neck: supple Cardiac: S1-S2 heard Lungs: clear to auscultation bilaterally Abdomen: soft , nontender, nondistended, bowel sounds positive Extremities: no edema clubbing or cyanosis Skin: no rash or lesions Tender blisters around the right thigh dressing, no erythema or surrounding warmth or tenderness Neurologic: no gross focal deficits Psych: calm, and cooperative - Constitutional Vitals: Temp Pulse Resp BP Pulse Ox 98.7 F 83 20 128/73 99 08/27/18 08:00 08/27/18 10:09 08/27/18 04:46 08/27/18 10:09 08/27/18 04:46 Plan Follow up with: PRIMARY MD HEATHER [Primary Care Provider] - 3-5 Days
== END 2018-08-27 12:34 | DRG 481 ==
LOC: ED 18:41 → 3B-SURG 23:44
PROVIDERS: ADMIT Internal Medicine; ATTEND Internal Medicine
PROC: 0QSB36Z Reposition Right Lower Femur with Intramedullary Internal Fixation Device, Percutaneous Approach (ICD-10-PCS; principal; 2018-08-20)
PROC: 30233N1 Transfusion of Nonautologous Red Blood Cells into Peripheral Vein, Percutaneous Approach (ICD-10-PCS; 2018-08-22)
DX: S72.401A Unspecified fracture of lower end of right femur, initial encounter for closed fracture (principal); D62 Acute posthemorrhagic anemia; E11.9 Type 2 diabetes mellitus without complications; W18.39XA Other fall on same level, initial encounter; Y93.89 Activity, other specified; Y92.090 Kitchen in other non-institutional residence as the place of occurrence of the external cause; Y99.8 Other external cause status; I10 Essential (primary) hypertension; F41.9 Anxiety disorder, unspecified; F32.9 Major depressive disorder, single episode, unspecified; Z98.51 Tubal ligation status; Z90.710 Acquired absence of both cervix and uterus; F17.200 Nicotine dependence, unspecified, uncomplicated; Z88.8 Allergy status to other drugs, medicaments and biological substances; Z91.19 Patient's noncompliance with other medical treatment and regimen
CPT/HCPCS: 36415; 80048; 80061; 82962; 83036; 85014; 85018; 85025; 85610; 85730; 86850; 86900; 86901; 86920; 94760; 96361; 96372; 96374; 96376; 99406; G0378; C1713; C1769; J0690; J1100; J1170; J1650; J1815; J1885; J2250; J2270; J2370; J2405; J2704; J3010; J7030; J7040; J7050; J7120; P9016

== ENCOUNTER 2018-08-27 10:48 | Inpatient (IN) | payer MEDICARE ==
[2018-08-27] MEDS ORDERED: D50W (25GM) Syringe IV PRN (11:28)
[2018-08-27] MEDS ORDERED: DULCOLAX PR PRN (11:40)
[2018-08-27] MEDS ORDERED: MIRALAX 3350 PO PRN (11:40)
[2018-08-27] MEDS ORDERED: TYLENOL PO PRN (11:40)
[2018-08-27] MEDS: NORCO 10/325 PO PRN ×2 (15:00→21:34)
--- NOTE | 2018-08-27 16:24 | History and Physical Report ---
History of Present Illness Date: 08/27/18 Date of admission: 08/27/18 12:57 Chief Complaint: Right mid shaft femur fracture History of present illness: 63-year-old female presented to the ED after a slip and fall with increased pain on the right lower extremity. She was evaluated and found to have a right mid shaft femur fracture. She was scheduled for surgery and underwent surgical repair on August [address] Concepcion and placed a intramedullary nail. She has a hist ory of hypertension and diabetes which are poorly controlled due to decreased compliance. Also states that she has anxiety for which she just recently started getting medications within the past 3 months but she cannot remember the name of the medication, review of [facility] PDM P does not show any benzodiazepines. We'll attempt to look further into what medications were prescribed for her anxiety and restart those if possible. Currently states that her right shoulder is also hurting and may have been injured in the original fall. There is some confusion with ordering of a shoulder x-ray, we do not see any orders anywhere from the acute side however due to her complaints are placed in order now. After the patient was medically stabilized they were transferred for further rehabilitation. All available medical records have been reviewed. Plan of care was discussed with patient. Past History Past Medical History: diabetes, hypertension, other (anxiety, depression) Past Surgical History: hysterectomy, Other (knee surgery) Social history: single, Lives alone, smoking (alcohol use), full code. denies: alcohol abuse, prescription drug abuse Family history: CAD, cancer, diabetes, hypertension Medications and Allergies Allergies Allergy/AdvReac Type Severity Reaction Status Date / Time latex Allergy Rash Verified 04/25/13 13:59 Home Medications Medication Instructions Recorded Confirmed Last Taken Type amLODIPine [Norvasc] 5 mg PO DAILY #30 tab 05/09/14 08/27/18 07/19/14 Rx glipiZIDE [Glucotrol] 5 mg PO QDAY #30 tablet 05/09/14 08/27/18 07/26/14 Rx hydroCHLOROthiazide [HCTZ] 25 mg PO QDAY #30 tablet 05/09/14 08/27/18 07/26/14 Rx Ondansetron [Zofran ODT TAB] 4 mg PO Q8HR PRN #14 tab.rapdis 01/07/17 08/27/18 Unknown Rx Docusate Sodium [Colace CAP] 100 mg PO BID capsule 08/27/18 Unknown Rx Enoxaparin [Lovenox] 40 mg SUB-Q QDAY syringe 08/27/18 Unknown Rx Glycerin Adult 2 gm 1 supp TX QDAY PRN supp.rect 08/27/18 Unknown Rx HYDROcodone/APAP 5-325 [[place] 1 each PO Q6H PRN tablet 08/27/18 Unknown Rx 5-325 mg TAB] Insulin Glargine [Lantus VIAL] 15 units SUB-Q QHS units 08/27/18 Unknown Rx Lispro Insulin [Humalog] 0 unit SUB-Q ACHS units 08/27/18 Unknown Rx Naloxone 0.4 mg/1 ml [Narcan 0.4 0.1 mg IV Q2MIN PRN amp 08/27/18 Unknown Rx mg/1 ml] diphenhydrAMINE [Benadryl CAP] 25 mg PO Q6H PRN capsule 08/27/18 Unknown Rx oxyCODONE /ACETAMINOPHEN [Percocet 2 tab PO Q4H PRN tablet 08/27/18 Unknown Rx 5/325 mg] Active Meds: Active Medications Acetaminophen (Tylenol) 500 mg PO Q6H PRN PRN Reason: Pain, Mild (1-3) Acetaminophen/Hydrocodone Bitart ([place] 10/325) 1 each PO Q6H PRN PRN Reason: Pain, Moderate (4-6) Last Admin: 08/27/18 15:00 Dose: 1 each Documented by: Amlodipine Besylate (Norvasc) 10 mg PO QDAY JOANIE Bisacodyl (Dulcolax) 10 mg [place] QDAY PRN PRN Reason: Constipation Dextrose (D50w (25gm) Syringe) 50 ml IV PRN PRN PRN Reason: Hypoglycemia Docusate Sodium (Colace) 100 mg PO BID JOANIE Enoxaparin Sodium (Lovenox) 40 mg SUB-Q QDAY JOANIE Hydrochlorothiazide (Hctz) 25 mg PO QDAY JOANIE Insulin Glargine (Lantus) 10 units SUB-Q QHS JOANIE Insulin Human Lispro (Humalog) 0 unit SUB-Q ACHS JOANIE; Protocol Polyethylene Glycol (Miralax 3350) 17 gm PO QDAY PRN PRN Reason: Constipation Review of Systems All systems: negative (ROS negative for 12 systems except as noted below with pertinent positives and negatives.) Constitutional: weakness Ears, nose, mouth and throat: no decreased hearing, no mouth pain Cardiovascular: no chest pain, no palpitations, no rapid/irregular heart beat, no leg edema Respiratory: no cough, no cough with sputum Gastrointestinal: no abdominal pain, no nausea, no vomiting, no diarrhea, no constipation Musculoskeletal: limitation of motion, fractures, other (right shoulder pain) Integumentary: wounds, no rash, no redness, no sores Neurological: no weakness, no parathesias, no numbness, no lack of coordination, no motor disturbance, no double vision Psychiatric: anxiety, depression Exam - Exam Narrative exam: MUSCULOSKELETAL SPECIALTY EXAM CONSTITUTIONAL: Well developed, well nourished, appropriately groomed obese female LYMPHATIC: No appreciable abnormalities palpable in neck EENT: Visual [place] full to confrontation. EOMI. Oropharynx clear. Hearing intact to soft voice RESPIRATORY: Clear to auscultation bilaterally, no increased work of breathing CARDIOVASCULAR: Regular Rate/ Rhythm, no swelling, edema or tenderness in BUE or BLE. Pulses palpable in all extremities. All extremities warm. GI: + bowel sounds, soft, NTTP, nondistended. INTEGUMENTARY: Normal, no lesion, rash, masses or bruising noted in extremities except for blisters on upper right thigh and surgical wounds on right leg. MUSCULOSKELETAL: BUE and BLE normal without defect, crepitus, subluxation, effusion, arthritic changes or TTP except Right lower extremity has surgical wound, right shoulder has tenderness to palpation. LUE 4+/5, good ROM, with normal tone. RUE has decreased strength and ROM due to pain at shoulder, normal tone. LLE 4+/5 good ROM, with normal tone. RLE has decreased strength and ROM due to pain, normal tone. NEURO: CN 2-12 grossly intact. Sensation intact in all extremities. Reflexes 2+ bilaterally at biceps, brachioradialis and L patella (R not tested due to surgical wound). No clonus at ankles. Coordination intact in BUE but ROM decreased on R. No tremor noted in 4 extremities. POSTURE and GAIT: Sitting posture good. Balance and Gait deferred until seen with therapy. PSYCH: Alert, orientated x3, affect appears anxious. Insight appears intact. Assessment and Plan Assessment and plan: Patient was assessed and evaluated for Acute Inpatient Rehab Unit. Due to the patients above-mentioned medical complexity, along with decreased functional mobility and self care, this patient continues to require and be appropriate for a comprehensive, multidisciplinary [id number] rehabilitation program. These needs cannot be met in an outpatient or other less intensive setting. The patient would continue to benefit from skilled therapy intervention for at least 3 hours per day, five days a week, with techniques specific to the needs of the patient to improve function, activities of daily living, and reintegration into the community. The patient continues to require: -- OT to improve ROM, self-care, and learn use of adaptive equipment -- PT to improve strength and balance, functional transfers, and ambulation with energy conservation techniques to improve functional mobility -- 24 hour RN to ensure and prevent skin breakdown, promote progressive independence while ensuring safety, ensure education regarding medications, and incorporation of the rehabilitation at the bedside -- 24 hour Senior Account Manager to coordinate this interdisciplinary program, and to manage/prevent complications as a result of the patients medical comorbidities. -Plan of care by day 4 -Weekly team conferences With such a program, there is a reasonable certainty that the goals individualized for this patient can be achieved within the specified length of stay. S72.91XS right femur fracture sequela: Weightbearing as tolerated, continue therapy as above, pain control, DVT prophylaxis. M25.511 R shoulder pain: XR, monitor pain. Possible further imaging if worsening pain. E11.9 diabetes: Continue medications and carb control diet. Adjust insulin as needed I10 Hypertension: Continue medications and monitor. Adjust as needed. R41.8 Anxiety with depression: Look for her previously prescribed Rx, will restart or start an appropriate SSRI. Z73.6 ADL dysfunction: OT will work on improving ability to perform ADLs (including assistive devices) to increase independence and decrease caregiver burden and improve functional transfers and mobility training. R26.2 Difficulty walking: PT will work on gait training and proper use of assistive devices and advance as appropriate to use of stairs and outside ambulation on uneven surfaces. R26.81 Unsteadiness on feet: PT will work on improving static and dynamic sitting and standing balance as well as proper use of assistive devices to decrease risk of falls. R26.89 Abnormality of gait: PT will work to improve safety and efficiency of gait through neuromotor training and gait training along with instruction on proper use of assistive devices. M62.81 Muscle weakness: PT & OT will work on strengthening exercises to improve functional strength including mixture of closed and open kinetic chain exercises. R53.81 Debility: PT & OT will work on improving overall functional status to improve participation with ADLs, mobility and social involvement. R53.83 Fatigue: PT & OT will work on improving endurance through aerobic exercises and therapeutic activity while monitoring patients tolerance for activity and vital signs as needed. DVT ppx: lovenox, will look to switch to OAC, rec not clear for length of time for DVT ppx in non-hip fractures Pain: Continue physical modalities in therapy and pain medications as needed to achieve functional pain control. Sleep: Monitor and address as needed. Bowel: Monitor and address as needed. Appetite: Monitor and address as needed. Discharge planning: Pending therapy progress and care plan meeting. Will continue discussion with therapy team, SW, patient and family. Restrictions/ Precautions: Falls, WBAT RLE WB status: FWB Functional Hx: ADLs: Independent Cognition: Independent Mobility: No AD Barriers to Discharge: Decreased mobility and ability to perform self care, balance deficits, weakness Estimated Length of Stay: 10-14 days Discharge Destination: Home alone POST ADMISSION PHYSICIAN EVALUATION I have examined the patient and find that functional status, medical condition and appropriateness for IRF admission are essentially unchanged from those described in the preadmission screening. Will monitor for worsening pain, infection of surgical site, DVT/PE, bowel and bladder complications and complications due to DM, HTN and electrolyte abnormalities. Will attempt to avoid occurrence of these issues or treat them if they present themselves.
[2018-08-27] MEDS: HumaLOG SUB-Q SCH ×2 (17:52→22:33)
--- NOTE | 2018-08-27 20:33 | XRay Report ---
PROCEDURE: RIGHT SHOULDER, 3 OR MORE VIEWS TECHNIQUE: RIGHT shoulder radiographs including AP views in internal and external rotation and abduc tion. CPT 88083 HISTORY: Trauma COMPARISONS: 02/05/2018 . FINDINGS: Fracture (s) and/or Dislocation(s): None . Joint space(s): Normal . Soft tissues: Normal . Bone mineralization: Normal . Foreign bodies: None . IMPRESSION: Normal Examination . This document is electronically signed by Adriel Spear MD., Aug 27 2018 08:31:17 PM ET
[2018-08-27] MEDS: COLACE PO SCH (21:34)
[2018-08-27] MEDS: LANTUS SUB-Q SCH (22:33)
[2018-08-28] MEDS: MORPHINE IV PRN ×3 (01:02→21:03)
[2018-08-28 04:32] LABS: Basophils % (Auto) 0.6 % (0.0-1.8); Eosinophils # (Auto) 0.3 K/mm3 (0.0-0.4); Eosinophils % (Auto) 4.9 % (0.0-4.3); Hematocrit 25.5 % (30.3-42.9); Hemoglobin 8.7 gm/dl (10.1-14.3); Lymphocytes # (Auto) 1.7 K/mm3 (1.2-5.4); Lymphocytes % (Auto) 32.3 % (13.4-35.0); Mean Corpuscular HGB Conc 34 % (30-34); Mean Corpuscular Volume 93 fl (79-97); Monocytes # (Auto) 0.7 K/mm3 (0.0-0.8); Monocytes % (Auto) 12.9 % (0.0-7.3); Platelet Count 226 K/mm3 (140-440); Red Blood Count 2.75 M/mm3 (3.65-5.03); Red Cell Distribution Width 16.3 % (13.2-15.2)
[2018-08-28 04:51] LABS: BUN/Creatinine Ratio 20; Blood Urea Nitrogen 8 mg/dL (7-17)
[2018-08-28 04:52] LABS: Alanine Aminotransferase 12 units/L (7-56); Albumin 3.5 g/dL (3.9-5); Hemolysis Index 5
[2018-08-28] MEDS: NORCO 10/325 PO PRN ×3 (05:10→18:18)
[2018-08-28] MEDS: HumaLOG SUB-Q SCH ×4 (07:12→21:04)
[2018-08-28] MEDS: K-DUR PO SCH (10:30)
[2018-08-28] MEDS: LEXAPRO PO SCH (10:31)
[2018-08-28] MEDS: COLACE PO SCH ×2 (10:31→21:03)
[2018-08-28] MEDS: LOVENOX SUB-Q SCH (10:31)
[2018-08-28] MEDS: HCTZ PO SCH (10:32)
[2018-08-28] MEDS: NORVASC PO SCH (10:32)
[2018-08-28] MEDS: LANTUS SUB-Q SCH (21:04)
[2018-08-29] MEDS: MORPHINE IV PRN ×2 (01:05→08:30)
[2018-08-29] MEDS: NORCO 10/325 PO PRN ×3 (04:51→20:07)
[2018-08-29] MEDS: COLACE PO SCH ×2 (08:23→22:32)
[2018-08-29] MEDS: NORVASC PO SCH (08:23)
[2018-08-29] MEDS: LEXAPRO PO SCH (08:23)
[2018-08-29] MEDS: K-DUR PO SCH (08:23)
[2018-08-29] MEDS: HCTZ PO SCH (08:24)
[2018-08-29] MEDS: LOVENOX SUB-Q SCH (08:24)
[2018-08-29] MEDS: HumaLOG SUB-Q SCH ×4 (08:24→22:35)
--- NOTE | 2018-08-29 12:21 | Progress Note ---
Subjective Date of service: 08/29/18 Principal diagnosis: right midshaft femur fracture Interval history: 63-year-old female presented to the ED after a slip and fall with increased pain on the right lower extremity. She was evaluated and found to have a right mid shaft femur fracture. She was scheduled for surgery and underwent surgical repair on August [address] Concepcion and placed a intramedullary nail. She has a history of hypertension and diabetes which are poorly controlled due to decreas ed compliance. Also states that she has anxiety for which she just recently started getting medications within the past 3 months but she cannot remember the name of the medication, review of [facility] PDM P does not show any benzodiazepines. We'll attempt to look further into what medications were prescribed for her anxiety and restart those if possible. Currently states that her right shoulder is also hurting and may have been injured in the original fall. There is some confusion with ordering of a shoulder x-ray, we do not see any orders anywhere from the acute side however due to her complaints are placed in order now. After the patient was medically stabilized they were transferred f or further rehabilitation. All available medical records have been reviewed. Plan of care was discussed with patient. Patient is participating in therapy and making reasonable progress. Taking rest breaks as needed. X-ray of right shoulder reviewed and does not show any issues with bony architecture. Pain is improved and the patient and range of motion is also greatly improved today. Continue modalities with therapy in order to continue improving. This was very likely a soft tissue injury from the fall which is just been exacerbated by the increased amount of work that she is now performing in therapy. Pain continues to be an issue for the patient despite oral and IV pain medications. Patient does not appear to be in a month's level of pain, I'm hesitant to increase pain medications at this time. We'll continue to utilize modalities as well as available pain medications to alleviate her pain. Explained to her that the goal is functional pain management so that she is able to still participate with therapy and improve her condition overall. She will still have some soreness and that is to be expected. +BM. Denies palpitations, dyspnea, cough, N/V, weakness, or joint pain. All records, vitals, labs and medications were reviewed. No other issues per patient, nursing or therapy. Objective - Exam Narrative Exam: MUSCULOSKELETAL SPECIALTY EXAM CONSTITUTIONAL: Well developed, well nourished, appropriately groomed obese female EENT: Hearing intact to soft voice RESPIRATORY: Clear to auscultation bilaterally, no increased work of breathing CARDIOVASCULAR: Regular Rate/ Rhythm, no swelling, edema or tenderness in BUE or BLE. All extremities warm. GI: + bowel sounds, soft, NTTP, nondistended. INTEGUMENTARY: Normal, no lesion, rash, masses or bruising noted in extremities except for blisters on upper right thigh and surgical wounds on right leg. MUSCULOSKELETAL: BUE and BLE normal without defect, crepitus, subluxation, effusion, arthritic changes or TTP except Right lower extremity has surgical wound, right shoulder has tenderness to palpation. LUE 4+/5, good ROM, with normal tone. RUE has decreased strength and ROM due to pain at shoulder (improved), normal tone. LLE 4+/5 good ROM, with normal tone. RLE has decreased strength and ROM due to pain, normal tone. NEURO: CN 2-12 grossly intact. Sensation intact in all extremities. No tremor noted in 4 extremities. POSTURE and GAIT: Sitting posture good. Balance and Gait deferred until seen with therapy. PSYCH: Alert, orientated x3, affect appears anxious. Insight appears intact. - Constitutional Vitals: Vital Signs - 12hr 08/29/18 08/29/18 08/29/18 01:05 04:23 04:51 Temperature 36.8 C Pulse Rate 78 Respiratory 20 20 18 Rate Blood Pressure 115/63 O2 Sat by Pulse 96 Oximetry 08/29/18 08/29/18 07:42 08:23 Temperature 36.7 C Pulse Rate 71 71 Respiratory 18 Rate Blood Pressure 134/73 134/73 O2 Sat by Pulse 99 Oximetry - Allied health notes Allied health notes reviewed: nursing, PT, OT FIMS assessment as documented by PT/OT/ST: Grooming Patient cleans teeth/dentures: Yes Patient vega/brushes hair: Yes Patient washes, rinses and Yes dries face: Patient washes, rinses and Yes dries hands: Patient shaves: No Patient applies make-up: No Patient performs (no make-up/ 07/18 (100%) shaving): Grooming FIM Score 4. Minimal Assistance (Patient = 75% or more. Needs touching.) Toileting Toileting Device Bedside Commode Toileting FIM Score 2. Maximal Assistance (Patient = 25% or more) Social interaction/Memory/Problem solving Social Interaction FIM Score 5. Supervision (Needs supv. <10%. Needs encouragement to participate.) Memory FIM Score 6. Modified [place](Mild difficulty remembering people/routines.) Problem Solving FIM Score 5. Supervision (Needs cueing <10% to solve routine problems.) Transfers Mode of Locomotion: Wheelchair Bed/Chair/Wheelchair Transfers 3. Moderate Assistance (Patient = 50% or more. FIM Score Some lifting.) Toilet Transfers FIM Score 4. Minimal Assistance (Patient = 75% or more. Needs touching.) Patient transferred to: Shower Shower Transfers FIM Score 4. Minimal Assistance (Patient = 75% or more. Needs touching.) Locomotion- walk/wheelchair Ambulation Distance 25 Eating Eating FIM Score 6. Modified [place] (Special consistency or uses device.) Dressing-Upper body Patient retrieves clothing No items: Patient applies/removes UE No prosthesis or orthosis: Upper Body Dressing FIM Score 4. Minimal Assistance (Patient = 75% or more. Needs touching.) Dressing-lower body Patient retrieves clothing No items: Patient applies/removes LE Yes: knee immoblizer prosthesis or orthosis: Lower Body Dressing FIM Score 3. Moderate Assistance (Patient = 50% or more) - Labs CBC & Chem 7: 08/28/18 04:09 08/28/18 04:09 Labs: Laboratory Results - last 72 hr 08/27/18 08/27/18 08/28/18 17:43 22:03 04:09 WBC 5.2 RBC 2.75 L Hgb 8.7 L Hct 25.5 L MCV 93 MCH 31 MCHC 34 RDW 16.3 H Plt Count 226 Lymph % (Auto) 32.3 Rhea % (Auto) 12.9 H Eos % (Auto) 4.9 H Baso % (Auto) 0.6 Lymph # 1.7 Rhea # 0.7 Eos # 0.3 Baso # 0.0 Seg Neutrophils % 49.3 Seg Neutrophils # 2.6 Sodium Potassium Chloride Carbon Dioxide Anion Gap BUN Creatinine Estimated GFR BUN/Creatinine Ratio Glucose POC Glucose 239 H 300 H Calcium Magnesium Total Bilirubin AST ALT Alkaline Phosphatase Total Protein Albumin Albumin/Globulin Ratio 08/28/18 08/28/18 08/28/18 04:09 04:09 08:00 WBC RBC Hgb Hct MCV MCH MCHC RDW Plt Count Lymph % (Auto) Rhea % (Auto) Eos % (Auto) Baso % (Auto) Lymph # Rhea # Eos # Baso # Seg Neutrophils % Seg Neutrophils # Sodium 134 L Potassium 3.3 L Chloride 94.9 L Carbon Dioxide 28 Anion Gap 14 BUN 8 Creatinine 0.4 L Estimated GFR > 60 BUN/Creatinine Ratio 20 Glucose 209 H POC Glucose 217 H Calcium 9.0 Magnesium 1.70 Total Bilirubin 1.10 AST 15 ALT 12 Alkaline Phosphatase 50 Total Protein 6.8 Albumin 3.5 L Albumin/Globulin Ratio 1.1 08/28/18 08/28/18 08/28/18 12:14 16:23 21:00 WBC RBC Hgb Hct MCV MCH MCHC RDW Plt Count Lymph % (Auto) Rhea % (Auto) Eos % (Auto) Baso % (Auto) Lymph # Rhea # Eos # Baso # Seg Neutrophils % Seg Neutrophils # Sodium Potassium Chloride Carbon Dioxide Anion Gap BUN Creatinine Estimated GFR BUN/Creatinine Ratio Glucose POC Glucose 264 H 320 H 208 H Calcium Magnesium Total Bilirubin AST ALT Alkaline Phosphatase Total Protein Albumin Albumin/Globulin Ratio 08/29/18 08/29/18 07:48 11:43 WBC RBC Hgb Hct MCV MCH MCHC RDW Plt Count Lymph % (Auto) Rhea % (Auto) Eos % (Auto) Baso % (Auto) Lymph # Rhea # Eos # Baso # Seg Neutrophils % Seg Neutrophils # Sodium Potassium Chloride Carbon Dioxide Anion Gap BUN Creatinine Estimated GFR BUN/Creatinine Ratio Glucose POC Glucose 219 H 227 H Calcium Magnesium Total Bilirubin AST ALT Alkaline Phosphatase Total Protein Albumin Albumin/Globulin Ratio Assessment and Plan S72.91XS right femur fracture sequela: Weightbearing as tolerated, continue therapy as above, pain control, DVT prophylaxis. M25.511 R shoulder pain: XR, monitor pain. Possible further imaging if worsening pain. E11.9 diabetes: Continue medications and carb control diet. Adjust insulin as needed I10 Hypertension: Continue medications and monitor. Adjust as needed. R41.8 Anxiety with depression: Continue lexapro Z73.6 ADL dysfunction: OT will work on improving ability to perform ADLs (including assistive devices) to increase independence and decrease caregiver burden and improve functional transfers and mobility training. R26.2 Difficulty walking: PT will work on gait training and proper use of assistive devices and advance as appropriate to use of stairs and outside ambulation on uneven surfaces. R26.81 Unsteadiness on feet: PT will work on improving static and dynamic sitting and standing balance as well as proper use of assistive devices to decrease risk of falls. R26.89 Abnormality of gait: PT will work to improve safety and efficiency of gait through neuromotor training and gait training along with instruction on proper use of assistive devices. M62.81 Muscle weakness: PT & OT will work on strengthening exercises to improve functional strength including mixture of closed and open kinetic chain exercises. R53.81 Debility: PT & OT will work on improving overall functional status to improve participation with ADLs, mobility and social involvement. R53.83 Fatigue: PT & OT will work on improving endurance through aerobic exercises and therapeutic activity while monitoring patients tolerance for activity and vital signs as needed. E87.6 Hypokalemia: replace, recheck labs later in week. Mag was on lower side of normal, will replace that as well Internal medicine consult for HTN. DM management DVT ppx: lovenox, will look to switch to OAC before discharge Pain: Continue physical modalities in therapy and pain medications as needed to achieve functional pain control. Sleep: Monitor and address as needed. Bowel: Monitor and address as needed. Appetite: Monitor and address as needed. Discharge planning: Pending therapy progress and care plan meeting. Will continue discussion with therapy team, SW, patient and family. Restrictions/ Precautions: Falls, WBAT RLE WB status: FWB Functional Hx: ADLs: Independent Cognition: Independent Mobility: No AD Barriers to Discharge: Decreased mobility and ability to perform self care, balance deficits, weakness Estimated Length of Stay: 10-14 days Discharge Destination: Home alone
--- NOTE | 2018-08-29 13:53 | IRU Plan of Care ---
Interdisciplinary Plan of Care - IPOC IRU INTERDISCIPLINARY PLAN: [facility] Inpatient Rehab Unit Plan of Care IRU Interdisciplinary Care Plan Start: 08/28/18 16:01 Freq: Status: Active Protocol: Document 08/28/18 16:01 ROBBIE (Rec: 08/28/18 16:02 ROBBIE [id number]) Interdisciplinary Problem List Interdisciplinary Problem List Interdisciplinary Problem List Impaired Bathing/Grooming, Query Text:Answers will Trigger Problems Impaired Dressing,Impaired and Outcomes on Worklist. Mobility,Impaired Transfers, Impaired Home Management, Impaired Safety IRU Interdisciplinary Care Plan Therapy Services Therapy Services Will Include: Occupational Therapy Query Text:Patient will be seen for a minimum of 3 hours of daily therapy 5 out of 7 days a week. Therapy intensity may be adjusted within a 7 consecutive day period to effectively serve the individual needs of the patient. Treatment Frequency/Intensity/Duration Treatment Frequency 5xwk Treatment Intensity 1.5 hrs Treatment Duration 2wk Problem Area: Eating/Swallowing Eating/Swallowing Outcomes Eating/Swallowing Interventions Problem Area: Bathing/Grooming Bathing/Grooming Outcomes Improve [place] w/ Grooming,Improve [place] w/ Bathing Bathing/Grooming Interventions ADL Training,Use of Assistive Devices,Therapeutic Exercise, Therapeutic Activity, Neuromuscular Re-Education, Balance Work,Activity Tolerance Work,Patient/ Caregiver Education Problem Area: Dressing Dressing Outcomes Improve [place] w/ UB Dressing,Improve [place] w/ LB Dressing Dressing Interventions ADL Training,Use of Assistive Devices,Neuromuscular Re- Education,Therapeutic Exercise ,Balance Work,Modalities, Patient/Caregiver Education Problem Area: Mobility Mobility Outcomes Mobility Interventions Problem Area: Transfers Transfers Outcomes Improve [place] w/ Toilet Transfers,Improve [place] w/ Tub/Shower Transfers Transfers Interventions Transfer Training,Therapeutic Exercise,Neuromuscular Re- Education,Visual/Perceptual Training,Activity Tolerance Work,Modalities,Use of Assistive Devices,Patient/ Caregiver Education Problem Area: Bowel/Bladder Managment Bowel/Bladder Outcomes Bowel/Bladder Interventions Problem Area: Toileting Toileting Outcomes Improve [place] w/ Toileting Toileting Interventions ADL Training,Balance Work,Use of Assistive Devices,Patient/ Caregiver Education Problem Area: Nutrition Nutrition Outcomes Nutrition Interventions Problem Area: Comprehension Comprehension Outcomes Comprehension Interventions Problem Area: Expression Expression Outcomes Expression Interventions Problem Area: Problem Solving Problem Solving Outcomes Problem Solving Interventions Problem Area: Memory Memory Outcomes Memory Interventions Problem Area: Pain Management Pain Management Outcomes Pain Management Interventions Problem Area: Knowledge Deficits Knowledge Deficits Outcomes Knowledge Deficits Interventions Problem Area: Skin/Tissue Integrity Skin/Tissue Integrity Outcomes Skin/Tissue Integrity Interventions Problem Area: Social Interaction Social Interaction Outcomes Social Interaction Interventions Problem Area: Adjustment to Disability Adjustment to Disability Outcomes Adjustment to Disability Interventions Problem Area: Discharge Concerns Discharge Concerns Outcomes Discharge Concerns Interventions Problem Area: Community Reintegration Community Reintegration Outcomes Community Reintegration Interventions Problem Area: Home Management Home Management Outcomes Improve [place] w/ Home Management Home Management Interventions Clothing Care,Activity Tolerance Work,Patient/ Caregiver Education Problem Area: Safety Safety Outcomes Provide Safe Environment, Perform Selfcare Safely, Demonstrate Good Safety w/ Transfers/Mobility Safety Interventions Identify Fall Risk,[place] Pt. to Environment,Reduce Environmental Hazards,Neuro Check Assessment,Implement Mechanical Devices, i.e. Chair Alarm (Post Fall Update),Re- Educate Patient/Caregiver for Safety (Post Fall Update) Problem Area: Medication Education Medication Education Outcomes Medication Education Interventions Problem Area: Diabetes Education Diabetes Education Outcomes Diabetes Education Interventions Problem Area: Oxygenation Oxygenation Outcomes Oxygenation Interventions Problem Area: Cardiovascular Cardiovascular Outcomes Cardiovascular Interventions Physician Only Medical Prognosis and Rehabilitation Good medical prognosis, chronic comorbidities controlled. At risk for DVT, lack of clear guidelines on length of DVT ppx, will convert to short period PO at discharge.Rehabilitation potential good. Has issues with pain control that seem to be managed Potential (Completed by Physician) This plan of care has been developed based on the findings from the pre- admission assessment, post admission physician evaluation, information gathered from the assessments from all therapy disciplines and other pertinent clinicians. The plan of care has been reviewed and discussed in collaboration with the interdisciplinary team. The plan of care will be reviewed and updated at least weekly.
[2018-08-29] MEDS: MAG-OX PO SCH (14:58)
--- NOTE | 2018-08-29 18:26 | Consultation ---
History of Present Illness - Reason for Consult Consult date: 08/29/18 medical managment Requesting physician: ROULA MCGEE III - History of Present Illness 63 YO Female with DM, HTN, Obesity, Anxiety, Depression admitted to IRU. Consult placed by Dr. Mcgee for medical management of HTN, and DM. Pt seen and evaluated in her room. Pt restiing comfortably in bed. Pt denies fever, chills, shortness of breath, CP, Palpitations, NVD, or recent ill contacts. Pt is a ctively participating in her rehab therapy, and tolerating therapy. No reported nursing events. Past History Past Medical History: diabetes, hypertension, other (anxiety, depression) Past Surgical History: hysterectomy, Other (knee surgery) Social history: single, Lives alone, smoking (alcohol use), full code. denies: alcohol abuse, prescription drug abuse Family history: CAD, cancer, diabetes, hypertension Medications and Allergies Allergies Allergy/AdvReac Type Severity Reaction Status Date / Time latex Allergy Rash Verified 04/25/13 13:59 Home Medications Medication Instructions Recorded Confirmed Last Taken Type amLODIPine [Norvasc] 5 mg PO DAILY #30 tab 05/09/14 08/27/18 07/19/14 Rx glipiZIDE [Glucotrol] 5 mg PO QDAY #30 tablet 05/09/14 08/27/18 07/26/14 Rx hydroCHLOROthiazide [HCTZ] 25 mg PO QDAY #30 tablet 05/09/14 08/27/18 07/26/14 Rx Ondansetron [Zofran ODT TAB] 4 mg PO Q8HR PRN #14 tab.rapdis 01/07/17 08/27/18 Unknown Rx Docusate Sodium [Colace CAP] 100 mg PO BID capsule 08/27/18 08/27/18 Unknown Rx Enoxaparin [Lovenox] 40 mg SUB-Q QDAY syringe 08/27/18 08/27/18 Unknown Rx Glycerin Adult 2 gm 1 supp OK QDAY PRN supp.rect 08/27/18 08/27/18 Unknown Rx HYDROcodone/APAP 5-325 [[place] 1 each PO Q6H PRN tablet 08/27/18 08/27/18 Unknown Rx 5-325 mg TAB] Insulin Glargine [Lantus VIAL] 15 units SUB-Q [facility] units 08/27/18 08/27/18 Unknown Rx Lispro Insulin [HumaLOG] 0 unit SUB-Q [facility] units 08/27/18 08/27/18 Unknown Rx Naloxone 0.4 mg/1 ml [Narcan 0.4 0.1 mg IV Q2MIN PRN amp 08/27/18 08/27/18 Unknown Rx mg/1 ml] diphenhydrAMINE [Benadryl CAP] 25 mg PO Q6H PRN capsule 08/27/18 08/27/18 Unknown Rx oxyCODONE /ACETAMINOPHEN [Percocet 2 tab PO Q4H PRN tablet 08/27/18 08/27/18 Unknown Rx 5/325 mg] Active Meds: Active Medications Acetaminophen (Tylenol) 500 mg PO Q6H PRN PRN Reason: Pain, Mild (1-3) Acetaminophen/Hydrocodone Bitart ([place] 10/325) 1 each PO Q6H PRN PRN Reason: Pain, Moderate (4-6) Last Admin: 08/29/18 13:16 Dose: 1 each Documented by: Amlodipine Besylate (Norvasc) 10 mg PO QDAY [facility] Last Admin: 08/29/18 08:23 Dose: 10 mg Documented by: Bisacodyl (Dulcolax) 10 mg OK QDAY PRN PRN Reason: Constipation Dextrose (D50w (25gm) Syringe) 50 ml IV PRN PRN PRN Reason: Hypoglycemia Docusate Sodium (Colace) 100 mg PO BID [facility] Last Admin: 08/29/18 08:23 Dose: 100 mg Documented by: Enoxaparin Sodium (Lovenox) 40 mg SUB-Q [facility] Last Admin: 08/29/18 08:24 Dose: 40 mg Documented by: Escitalopram Oxalate (Lexapro) 10 mg PO QDAY [facility] Last Admin: 08/29/18 08:23 Dose: 10 mg Documented by: Hydrochlorothiazide (Hctz) 25 mg PO QDAY [facility] Last Admin: 08/29/18 08:24 Dose: 25 mg Documented by: Insulin [facility]us) [facility] Last Admin: 08/28/18 21:04 Dose: 10 units Documented by: Insulin Human Lispro (Humalog) 0 unit SUB-Q [facility]; Protocol Last Admin: 08/29/18 17:17 Dose: 3 unit Documented by: Magnesium Oxide (Mag-Ox) 400 mg PO QDAY [facility] Stop: 09/01/18 08:01 Last Admin: 08/29/18 14:58 Dose: 400 mg Documented by: Polyethylene Glycol (Miralax [id number]) 17 gm PO QDAY PRN PRN Reason: Constipation Potassium Chloride (K-Dur) 20 meq PO QDAY [facility] Stop: 09/03/18 08:59 Last Admin: 08/29/18 08:23 Dose: 20 meq Documented by: Review of Systems Constitutional: no weight loss, no weight gain, no fever, no chills, no sweats Ears, nose, mouth and throat: no ear pain, no ear discharge, no tinnitis, no decreased hearing, no nose pain, no nasal congestion Breasts: no change in shape, no swelling, no mass Cardiovascular: no chest pain, no orthopnea, no palpitations, no edema Respiratory: no cough, no cough with sputum, no hemoptysis, no shortness of breath, no dyspnea on exertion Gastrointestinal: no nausea, no diarrhea, no constipation, no change in bowel habits, no hematemesis Genitourinary Female: no pelvic pain, no flank pain, no dysuria Rectal: no pain, no incontinence, no bleeding Musculoskeletal: no neck stiffness, no neck pain Integumentary: no rash, no pruritis, no redness, no wounds Neurological: no head injury, no numbness, no tingling, no seizures, no syncope Psychiatric: no anxiety, no memory loss, no change in sleep habits, no insomnia, no hypersomnia, no change in appetite, no change in libido Endocrine: no cold intolerance, no excessive thirst, no polydipsia, no excessive sweating Hematologic/Lymphatic: no easy bruising, no easy bleeding, no lymphadenopathy Allergic/Immunologic: no urticaria, no allergic rhinitis, no wheezing, no persistent infections, no angioedema Exam - Constitutional Vitals: Temp Pulse Resp BP Pulse Ox 97.9 F 84 18 135/76 98 08/29/18 16:10 08/29/18 16:10 08/29/18 16:10 08/29/18 16:10 08/29/18 16:10 General appearance: Present: obese - EENT Eyes: Present: PERRL ENT: hearing intact, clear oral mucosa - Neck Neck: Present: supple, normal ROM - Respiratory Respiratory effort: normal Respiratory: bilateral: CTA - Cardiovascular Heart Sounds: Present: S1 & S2. Absent: rub, click - Extremities Extremities: pulses symmetrical, No edema Peripheral Pulses: within normal limits - Abdominal General gastrointestinal: Present: soft, non-tender, non-distended, normal bowel sounds Female genitourinary: Present: normal - Integumentary Integumentary: Present: clear, warm, dry - Musculoskeletal Musculoskeletal: gait normal, strength equal bilaterally - Psychiatric Psychiatric: appropriate mood/affect, intact judgment & insight - Neurologic Neurologic: CNII-XII intact, moves all extremities Results - Labs CBC & Chem 7: 08/28/18 04:09 08/28/18 04:09 Labs: Abnormal lab results 08/28/18 08/29/18 08/29/18 Range/Units 21:00 07:48 11:43 POC Glucose 208 H 219 H 227 H (70-105) 08/29/18 Range/Units 16:14 POC Glucose 291 H (70-105) Assessment and Plan - Patient Problems (1) HTN (hypertension) Current Visit: Yes Status: Acute Qualifiers: Hypertension type: essential hypertension Qualified Code(s): I10 - Essential (primary) hypertension Plan to address problem: Monitor BP q shift, low sodium diet, continue medical management with amlodipine , pain control prior to adjusting antihypertensive therapy. (2) Diabetes Current Visit: Yes Status: Acute Plan to address problem: ADA diet, insulin, accu check, hypoglycemia protocol
--- NOTE | 2018-08-29 19:25 | IRU Plan of Care ---
Interdisciplinary Plan of Care - IP IRU INTERDISCIPLINARY PLAN: [facility] Inpatient Rehab Unit Plan of Care IRU Interdisciplinary Care Plan Start: 08/28/18 16:01 Freq: Status: Active Protocol: Document 08/29/18 14:34 TH (Rec: 08/29/18 14:44 TH [id number]) Interdisciplinary Problem List Interdisciplinary Problem List Interdisciplinary Problem List Impaired Bathing/Grooming, Query Text:Answers will Trigger Problems Impaired Dressing,Impaired and Outcomes on Worklist. Mobility,Impaired Transfers, Impaired Toileting,Impaired Comprehension,Impaired Problem Solving,Discharge Concerns, Impaired Home Management, Impaired Safety,Medications Education,Diabetes Education, Impaired Oxygenation,Impaired Cardiovascular System IRU Interdisciplinary Care Plan Therapy Services Therapy Services Will Include: Physical Therapy,Occupational Query Text:Patient will be seen for a Therapy minimum of 3 hours of daily therapy 5 out of 7 days a week. Therapy intensity may be adjusted within a 7 consecutive day period to effectively serve the individual needs of the patient. Treatment Frequency/Intensity/Duration Treatment Frequency 5 days per week Treatment Intensity 3 hours/week Treatment Duration 10-14 days Problem Area: Eating/Swallowing Eating/Swallowing Outcomes Eating/Swallowing Interventions Problem Area: Bathing/Grooming Bathing/Grooming Outcomes Improve Williamson w/ Grooming,Improve Williamson w/ Bathing Bathing/Grooming Interventions ADL Training,Use of Assistive Devices,Therapeutic Exercise, Therapeutic Activity, Neuromuscular Re-Education, Balance Work,Activity Tolerance Work,Patient/ Caregiver Education Problem Area: Dressing Dressing Outcomes Improve Williamson w/ UB Dressing,Improve Williamson w/ LB Dressing Dressing Interventions ADL Training,Use of Assistive Devices,Neuromuscular Re- Education,Therapeutic Exercise ,Balance Work,Patient/ Caregiver Education Problem Area: Mobility Mobility Outcomes Mobility Interventions Problem Area: Transfers Transfers Outcomes Improve [place] w/ Bed Transfers,Improve Williamson w/ Toilet Transfers,Improve Williamson w/ Tub/Shower Transfers,Improve Williamson w/ Car Transfers Transfers Interventions Transfer Training,Therapeutic Exercise,Neuromuscular Re- Education,Visual/Perceptual Training,Activity Tolerance Work,Modalities,Use of Assistive Devices,Patient/ Caregiver Education Problem Area: Bowel/Bladder Managment Bowel/Bladder Outcomes Bowel/Bladder Interventions Problem Area: Toileting Toileting Outcomes Improve Williamson w/ Toileting Toileting Interventions ADL Training,Balance Work,Use of Assistive Devices,Patient/ Caregiver Education Problem Area: Nutrition Nutrition Outcomes Nutrition Interventions Problem Area: Comprehension Comprehension Outcomes Comprehension Interventions Problem Area: Expression Expression Outcomes Expression Interventions Problem Area: Problem Solving Problem Solving Outcomes Problem Solving Interventions Problem Area: Memory Memory Outcomes Memory Interventions Problem Area: Pain Management Pain Management Outcomes Pain Management Interventions Problem Area: Knowledge Deficits Knowledge Deficits Outcomes Knowledge Deficits Interventions Problem Area: Skin/Tissue Integrity Skin/Tissue Integrity Outcomes Skin/Tissue Integrity Interventions Problem Area: Social Interaction Social Interaction Outcomes Social Interaction Interventions Problem Area: Adjustment to Disability Adjustment to Disability Outcomes Adjustment to Disability Interventions Problem Area: Discharge Concerns Discharge Concerns Outcomes Discharge w/ Necessary Equipment,Have Home Health/ Outpatient Services Discharge Concerns Interventions Discharge Planning,Equipment Assessment, Acquisition and Placement,Family/Caregiver Conference,Family/Caregiver Training Problem Area: Community Reintegration Community Reintegration Outcomes Community Reintegration Interventions Problem Area: Home Management Home Management Outcomes Improve Williamson w/ Home Management Home Management Interventions Clothing Care,Activity Tolerance Work,Patient/ Caregiver Education Problem Area: Safety Safety Outcomes Provide Safe Environment, Perform Selfcare Safely, Demonstrate Good Safety w/ Transfers/Mobility Safety Interventions Identify Fall Risk,[place] Pt. to Environment,Reduce Environmental Hazards,Neuro Check Assessment,Implement Mechanical Devices, i.e. Chair Alarm (Post Fall Update),Re- Educate Patient/Caregiver for Safety (Post Fall Update) Problem Area: Medication Education Medication Education Outcomes Medication Education Interventions Problem Area: Diabetes Education Diabetes Education Outcomes Diabetes Education Interventions Problem Area: Oxygenation Oxygenation Outcomes Oxygenation Interventions Problem Area: Cardiovascular Cardiovascular Outcomes Cardiovascular Interventions Physician Only Medical Prognosis and Rehabilitation Potential (Completed by Physician) Good medical prognosis, chronic comorbidities controlled. At risk for DVT, lack of clear guidelines on length of DVT ppx, will convert to short period PO prior to discharge.Rehabilitation potential good. Has issues with pain control that seem to be managed This plan of care has been developed based on the findings from the pre- admission assessment, post admission physician evaluation, information gathered from the assessments from all therapy disciplines and other pertinent cl inicians. The plan of care has been reviewed and discussed in collaboration with the interdisciplinary team. The plan of care will be reviewed and updated at least weekly.
[2018-08-29] MEDS: LANTUS SUB-Q SCH (22:32)
[2018-08-30] MEDS: NORCO 10/325 PO PRN ×4 (03:50→21:37)
[2018-08-30] MEDS: HumaLOG SUB-Q SCH ×3 (07:56→16:58)
[2018-08-30] MEDS: HCTZ PO SCH (09:50)
[2018-08-30] MEDS: LOVENOX SUB-Q SCH (09:51)
[2018-08-30] MEDS: LEXAPRO PO SCH (09:51)
[2018-08-30] MEDS: COLACE PO SCH ×2 (09:51→21:50)
[2018-08-30] MEDS: NORVASC PO SCH (09:51)
[2018-08-30] MEDS: MAG-OX PO SCH (09:51)
[2018-08-30] MEDS: K-DUR PO SCH (09:52)
--- NOTE | 2018-08-30 13:38 | Progress Note ---
Assessment and Plan Assessment and plan: Hypertension. Continue Norvasc and hydrochlorothiazide. Monitor BP closely. Diabetes mellitus type 2. Continue Lantus 10 units at bedtime. Continue sliding scale and Accu-Cheks. History Interval history: No new issues overnight Hospitalist Physical - Constitutional Vitals: Temp Pulse Resp BP Pulse Ox 98.2 F 83 18 130/79 96 08/30/18 12:00 08/30/18 12:00 08/30/18 12:00 08/30/18 12:00 08/30/18 11:46 General appearance: Present: obese - EENT Eyes: Present: PERRL, EOM intact ENT: hearing intact, clear oral mucosa, dentition normal - Neck Neck: Present: supple, normal ROM - Respiratory Respiratory effort: normal Respiratory: bilateral: CTA - Cardiovascular Rhythm: regular Heart Sounds: Present: S1 & S2. Absent: gallop, rub - Extremities Extremities: no ischemia, No edema, Full ROM - Abdominal General gastrointestinal: soft, non-tender, non-distended, normal bowel sounds - Integumentary Integumentary: Present: clear, warm, dry - Neurologic Neurologic: CNII-XII intact, moves all extremities Results - Labs CBC & Chem 7: 08/28/18 04:09 08/28/18 04:09 Labs: Laboratory Last Values WBC 5.2 K/mm3 (4.5-11.0) 08/28/18 04:09 RBC 2.75 M/mm3 (3.65-5.03) L 08/28/18 04:09 Hgb 8.7 gm/dl (10.1-14.3) L 08/28/18 04:09 Hct 25.5 % (30.3-42.9) L 08/28/18 04:09 MCV 93 fl (79-97) 08/28/18 04:09 MCH 31 pg (28-32) 08/28/18 04:09 MCHC 34 % (30-34) 08/28/18 04:09 RDW 16.3 % (13.2-15.2) H 08/28/18 04:09 Plt Count 226 K/mm3 (140-440) 08/28/18 04:09 Lymph % (Auto) 32.3 % (13.4-35.0) 08/28/18 04:09 [place] % (Auto) 12.9 % (0.0-7.3) H 08/28/18 04:09 Eos % (Auto) 4.9 % (0.0-4.3) H 08/28/18 04:09 Baso % (Auto) 0.6 % (0.0-1.8) 08/28/18 04:09 Lymph # 1.7 K/mm3 (1.2-5.4) 08/28/18 04:09 [place] # 0.7 K/mm3 (0.0-0.8) 08/28/18 04:09 Eos # 0.3 K/mm3 (0.0-0.4) 08/28/18 04:09 Baso # 0.0 K/mm3 (0.0-0.1) 08/28/18 04:09 Seg Neutrophils % 49.3 % (40.0-70.0) 08/28/18 04:09 Seg Neutrophils # 2.6 K/mm3 (1.8-7.7) 08/28/18 04:09 Sodium 134 mmol/L (137-145) L 08/28/18 04:09 Potassium 3.3 mmol/L (3.6-5.0) L 08/28/18 04:09 Chloride 94.9 mmol/L (98-107) L 08/28/18 04:09 Carbon Dioxide 28 mmol/L (22-30) 08/28/18 04:09 14 mmol/L 08/28/18 04:09 BUN 8 mg/dL (7-17) 08/28/18 04:09 0.4 mg/dL (0.7-1.2) L 08/28/18 04:09 Estimated GFR > 60 ml/min 08/28/18 04:09 20 % 08/28/18 04:09 Glucose 209 mg/dL (65-100) H 08/28/18 04:09 POC Glucose 147 (70-105) H 08/30/18 12:05 Calcium 9.0 mg/dL (8.4-10.2) 08/28/18 04:09 Magnesium 1.70 mg/dL (1.7-2.3) 08/28/18 04:09 1.10 mg/dL (0.1-1.2) 08/28/18 04:09 AST 15 units/L (5-40) 08/28/18 04:09 ALT 12 units/L (7-56) 08/28/18 04:09 50 units/L (35-129) 08/28/18 04:09 6.8 g/dL (6.3-8.2) 08/28/18 04:09 3.5 g/dL (3.9-5) L 08/28/18 04:09 1.1 % 08/28/18 04:09 Active Medications - Current Medications Current Medications: Generic Name Dose Route Start Last Admin Trade Name Freq PRN Reason Stop Dose Admin Acetaminophen 500 mg 08/27/18 11:40 Tylenol PO Q6H PRN Pain, Mild (1-3) Acetaminophen/Hydrocodone Bitart 1 each 08/27/18 11:44 08/30/18 09:50 [place] 10/325 PO 1 each Q6H PRN Administration Pain, Moderate (4-6) Amlodipine Besylate 10 mg 08/28/18 08:00 08/30/18 09:51 Norvasc PO 10 mg QDAY JONAIE Administration Bisacodyl 10 mg 08/27/18 11:40 Dulcolax NV QDAY PRN Constipation Dextrose 50 ml 08/27/18 11:28 D50w (25gm) Syringe IV PRN PRN Hypoglycemia Docusate Sodium 100 mg 08/27/18 22:00 08/30/18 09:51 Colace PO 100 mg BID JOANIE Administration Enoxaparin Sodium 40 mg 08/28/18 08:00 08/30/18 09:51 Lovenox SUB-Q 40 mg QDAY JOANIE Administration Escitalopram Oxalate 10 mg 08/28/18 08:00 08/30/18 09:51 Lexapro PO 10 mg QDAY JOANIE Administration Hydrochlorothiazide 25 mg 08/28/18 08:00 08/30/18 09:50 Hctz PO 25 mg QDAY JOANIE Administration Insulin Glargine 10 units 08/27/18 21:00 08/29/18 22:32 Lantus SUB-Q 10 units QHS JOANIE Administration Insulin Human Lispro 0 unit 08/27/18 16:30 08/30/18 13:19 Humalog SUB-Q Not Given ACHS [facility] Protocol Magnesium Oxide 400 mg 08/29/18 12:00 08/30/18 09:51 Mag-Ox PO 09/01/18 08:01 400 mg QDAY JOANIE Administration Polyethylene Glycol 17 gm 08/27/18 11:40 Miralax 3350 PO QDAY PRN Constipation Potassium Chloride 20 meq 08/28/18 09:00 08/30/18 09:52 K-Dur PO 09/03/18 08:59 20 meq QDAY JOANIE Administration Nutrition/Malnutrition Assess - Dietary Evaluation Nutrition/Malnutrition Findings: Nutrition Notes Start: 08/28/18 09:02 Freq: Status: Active Protocol: Document 08/28/18 09:02 AMITA (Rec: 08/28/18 09:04 [facility] [id number]) Nutrition Notes Need for 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 Currently uncontrolled sec to non-compliance, per records. Will assess upon further consult or LOS.
[2018-08-30] MEDS: LANTUS SUB-Q SCH (21:47)
[2018-08-31] MEDS: NORCO 10/325 PO PRN ×4 (05:13→20:34)
[2018-08-31] MEDS: HumaLOG SUB-Q SCH ×5 (05:15→21:48)
[2018-08-31 07:59] LABS: BUN/Creatinine Ratio 24; Blood Urea Nitrogen 12 mg/dL (7-17); Calcium 9.3 mg/dL (8.4-10.2); Hemolysis Index 0
--- NOTE | 2018-08-31 08:48 | Progress Note ---
Subjective Date of service: 08/31/18 Principal diagnosis: right midshaft femur fracture Interval history: 63-year-old female presented to the ED after a slip and fall with increased pain on the right lower extremity. She was evaluated and found to have a right mid shaft femur fracture. She was scheduled for surgery and underwent surgical repair on August [address] Concepcion and placed a intramedullary nail. She has a history of hypertension and diabetes which are poorly controlled due to decreas ed compliance. Also states that she has anxiety for which she just recently started getting medications within the past 3 months but she cannot remember the name of the medication, review of [facility] PDM P does not show any benzodiazepines. We'll attempt to look further into what medications were prescribed for her anxiety and restart those if possible. Currently states that her right shoulder is also hurting and may have been injured in the original fall. There is some confusion with ordering of a shoulder x-ray, we do not see any orders anywhere from the acute side however due to her complaints are placed in order now. After the patient was medically stabilized they were transferred f or further rehabilitation. All available medical records have been reviewed. Plan of care was discussed with patient. Patient is participating in therapy and making reasonable progress. Taking rest breaks as needed. Pain is improved and the patient and range of motion is also improved. Continue modalities with therapy in order to continue improving. This was very likely a soft tissue injury from the fall which is just been exacerbated by the increased amount of work that she is now performing in therapy. Pain in RLE continues to be an issue for the patient despite oral pain medications. Patient does not appear to be in severe pain, will increase availability of oral pain meds. We'll continue to utilize modalities as well as available pain medications to alleviate her pain. Explained to her that the goal is functional pain management so that she is able to still participate with therapy and improve her condition overall. She will still have some soreness and that is to be expected. +BM. Denies palpitations, dyspnea, cough, N/V, weakness, or joint pain. All records, vitals, labs and medications were reviewed. No other issues per patient, nursing or therapy. Objective - Exam Narrative Exam: MUSCULOSKELETAL SPECIALTY EXAM CONSTITUTIONAL: Well developed, well nourished, appropriately groomed obese female EENT: Hearing intact to soft voice RESPIRATORY: Clear to auscultation bilaterally, no increased work of breathing CARDIOVASCULAR: Regular Rate/ Rhythm, no swelling, edema or tenderness in BUE or BLE. All extremities warm. GI: + bowel sounds, soft, NTTP, nondistended. INTEGUMENTARY: Normal, no lesion, rash, masses or bruising noted in extremities except for blisters on upper right thigh and surgical wounds on right leg. MUSCULOSKELETAL: BUE and BLE normal without defect, crepitus, subluxation, effusion, arthritic changes or TTP except Right lower extremity has surgical wound, right shoulder has tenderness to palpation. LUE 4+/5, good ROM, with normal tone. RUE has decreased strength and ROM due to pain at shoulder (improved), normal tone. LLE 4+/5 good ROM, with normal tone. RLE has decreased strength and ROM due to pain, normal tone. NEURO: CN 2-12 grossly intact. Sensation intact in all extremities. No tremor noted in 4 extremities. POSTURE and GAIT: Sitting posture good. Balance and Gait deferred until seen with therapy. PSYCH: Alert, orientated x3, affect normal. Insight appears intact. - Constitutional Vitals: Vital Signs - 12hr 08/30/18 08/30/18 08/31/18 23:09 23:29 07:30 Temperature 37.0 C 36.8 C Pulse Rate 89 90 81 Respiratory 18 19 Rate Blood Pressure 121/64 131/74 [Left] O2 Sat by Pulse 98 98 97 Oximetry - Allied health notes Allied health notes reviewed: nursing, PT, OT FIMS assessment as documented by PT/OT/ST: Grooming Patient cleans teeth/dentures: Yes Patient vega/brushes hair: Yes Patient washes, rinses and Yes dries face: Patient washes, rinses and Yes dries hands: Patient shaves: No Patient applies make-up: No Patient performs (no make-up/ 07/18 (100%) shaving): Grooming FIM Score 4. Minimal Assistance (Patient = 75% or more. Needs touching.) Toileting Toileting Device Bedside Commode Toileting FIM Score 2. Maximal Assistance (Patient = 25% or more) Social interaction/Memory/Problem solving Social Interaction FIM Score 5. Supervision (Needs supv. <10%. Needs encouragement to participate.) Memory FIM Score 6. Modified [place](Mild difficulty remembering people/routines.) Problem Solving FIM Score 5. Supervision (Needs cueing <10% to solve routine problems.) Transfers Mode of Locomotion: Wheelchair Bed/Chair/Wheelchair Transfers 3. Moderate Assistance (Patient = 50% or more. FIM Score Some lifting.) Toilet Transfers FIM Score 4. Minimal Assistance (Patient = 75% or more. Needs touching.) Patient transferred to: Shower Shower Transfers FIM Score 4. Minimal Assistance (Patient = 75% or more. Needs touching.) Locomotion- walk/wheelchair Ambulation Distance 25 Eating Eating FIM Score 6. Modified [place] (Special consistency or uses device.) Dressing-Upper body Patient retrieves clothing No items: Patient applies/removes UE No prosthesis or orthosis: Upper Body Dressing FIM Score 5. Supv./Set-Up ([place] sets out clothes or applies pros./orth.) Dressing-lower body Patient retrieves clothing No items: Patient applies/removes LE Yes: knee immoblizer prosthesis or orthosis: Lower Body Dressing FIM Score 2. Maximal Assistance (Patient = 25% or more) - Labs CBC & Chem 7: 09/03/18 11:56 09/03/18 05:25 Labs: Laboratory Results - last 72 hr 08/28/18 08/28/18 08/28/18 04:09 12:14 16:23 Sodium Potassium Chloride Carbon Dioxide Anion Gap BUN Creatinine Estimated GFR BUN/Creatinine Ratio Glucose POC Glucose 264 H 320 H Calcium Magnesium 1.70 08/28/18 08/29/18 08/29/18 21:00 07:48 11:43 Sodium Potassium Chloride Carbon Dioxide Anion Gap BUN Creatinine Estimated GFR BUN/Creatinine Ratio Glucose POC Glucose 208 H 219 H 227 H Calcium Magnesium 08/29/18 08/29/18 08/30/18 16:14 21:49 07:29 Sodium Potassium Chloride Carbon Dioxide Anion Gap BUN Creatinine Estimated GFR BUN/Creatinine Ratio Glucose POC Glucose 291 H 248 H 226 H Calcium Magnesium 08/30/18 08/30/18 08/30/18 12:05 16:23 21:39 Sodium Potassium Chloride Carbon Dioxide Anion Gap BUN Creatinine Estimated GFR BUN/Creatinine Ratio Glucose POC Glucose 147 H 233 H 273 H Calcium Magnesium 08/31/18 08/31/18 06:34 07:55 Sodium 138 Potassium 3.9 Chloride 100.0 Carbon Dioxide 27 Anion Gap 15 BUN 12 Creatinine 0.5 L Estimated GFR > 60 BUN/Creatinine Ratio 24 Glucose 180 H POC Glucose 188 H Calcium 9.3 Magnesium Assessment and Plan S72.91XS right femur fracture sequela: Weightbearing as tolerated, continue therapy as above, pain control, DVT prophylaxis. M25.511 R shoulder pain: XR, monitor pain. Possible further imaging if worsening pain. E11.9 diabetes: Continue medications and carb control diet. Adjust insulin as needed I10 Hypertension: Continue medications and monitor. Adjust as needed. R41.8 Anxiety with depression: Continue lexapro Z73.6 ADL dysfunction: OT will work on improving ability to perform ADLs (including assistive devices) to increase independence and decrease caregiver burden and improve functional transfers and mobility training. R26.2 Difficulty walking: PT will work on gait training and proper use of assistive devices and advance as appropriate to use of stairs and outside ambulation on uneven surfaces. R26.81 Unsteadiness on feet: PT will work on improving static and dynamic sitting and standing balance as well as proper use of assistive devices to decrease risk of falls. R26.89 Abnormality of gait: PT will work to improve safety and efficiency of gait through neuromotor training and gait training along with instruction on pr oper use of assistive devices. M62.81 Muscle weakness: PT & OT will work on strengthening exercises to improve functional strength including mixture of closed and open kinetic chain exercises. R53.81 Debility: PT & OT will work on improving overall functional status to improve participation with ADLs, mobility and social involvement. R53.83 Fatigue: PT & OT will work on improving endurance through aerobic exercises and therapeutic activity while monitoring patients tolerance for activity and vital signs as needed. E87.6 Hypokalemia: replace, recheck labs later in week. Mag was on lower side of normal, will replace that as well Internal medicine consult for HTN. DM management DVT ppx: lovenox, will look to switch to OAC before discharge Pain: Continue physical modalities in therapy and pain medications as needed to achieve functional pain control. Sleep: Monitor and address as needed. Bowel: Monitor and address as needed. Appetite: Monitor and address as needed. Discharge planning: Pending therapy progress and care plan meeting. Will continue discussion with therapy team, SW, patient and family. Restrictions/ Precautions: Falls, WBAT RLE WB status: FWB Functional Hx: ADLs: Independent Cognition: Independent Mobility: No AD Barriers to Discharge: Decreased mobility and ability to perform self care, balance deficits, weakness Estimated Length of Stay: 10-14 days Discharge Destination: Home alone
[2018-08-31] MEDS: LEXAPRO PO SCH (09:11)
[2018-08-31] MEDS: MAG-OX PO SCH (09:11)
[2018-08-31] MEDS: K-DUR PO SCH (09:12)
[2018-08-31] MEDS: COLACE PO SCH ×2 (09:12→21:32)
[2018-08-31] MEDS: LOVENOX SUB-Q SCH (09:12)
[2018-08-31] MEDS: HCTZ PO SCH (09:13)
[2018-08-31] MEDS: NORVASC PO SCH (09:13)
--- NOTE | 2018-08-31 12:16 | Progress Note ---
Assessment and Plan Assessment and plan: Hypertension. Continue Norvasc and hydrochlorothiazide. Monitor BP closely. Diabetes mellitus type 2, uncontrolled. BG slightly elevated. Increase Lantus to 15 units at bedtime. Continue sliding scale and Accu-Cheks. History Interval history: No new issues overnight Hospitalist Physical - Constitutional Vitals: Temp Pulse Resp BP Pulse Ox 98.2 F 81 19 131/74 97 08/31/18 07:30 08/31/18 09:13 08/31/18 07:30 08/31/18 09:13 08/31/18 07:30 General appearance: Present: obese - EENT Eyes: Present: PERRL, EOM intact ENT: hearing intact, clear oral mucosa, dentition normal - Neck Neck: Present: supple, normal ROM - Respiratory Respiratory effort: normal Respiratory: bilateral: CTA - Cardiovascular Rhythm: regular Heart Sounds: Present: S1 & S2. Absent: gallop, rub - Extremities Extremities: no ischemia, No edema, Full ROM - Abdominal General gastrointestinal: soft, non-tender, non-distended, normal bowel sounds - Integumentary Integumentary: Present: clear, warm, dry - Neurologic Neurologic: CNII-XII intact, moves all extremities Results - Labs CBC & Chem 7: 08/28/18 04:09 08/31/18 06:34 Labs: Laboratory Last Values WBC 5.2 K/mm3 (4.5-11.0) 08/28/18 04:09 RBC 2.75 M/mm3 (3.65-5.03) L 08/28/18 04:09 Hgb 8.7 gm/dl (10.1-14.3) L 08/28/18 04:09 Hct 25.5 % (30.3-42.9) L 08/28/18 04:09 MCV 93 fl (79-97) 08/28/18 04:09 MCH 31 pg (28-32) 08/28/18 04:09 MCHC 34 % (30-34) 08/28/18 04:09 RDW 16.3 % (13.2-15.2) H 08/28/18 04:09 Plt Count 226 K/mm3 (140-440) 08/28/18 04:09 Lymph % (Auto) 32.3 % (13.4-35.0) 08/28/18 04:09 [place] % (Auto) 12.9 % (0.0-7.3) H 08/28/18 04:09 Eos % (Auto) 4.9 % (0.0-4.3) H 08/28/18 04:09 Baso % (Auto) 0.6 % (0.0-1.8) 08/28/18 04:09 Lymph # 1.7 K/mm3 (1.2-5.4) 08/28/18 04:09 [place] # 0.7 K/mm3 (0.0-0.8) 08/28/18 04:09 Eos # 0.3 K/mm3 (0.0-0.4) 08/28/18 04:09 Baso # 0.0 K/mm3 (0.0-0.1) 08/28/18 04:09 Seg Neutrophils % 49.3 % (40.0-70.0) 08/28/18 04:09 Seg Neutrophils # 2.6 K/mm3 (1.8-7.7) 08/28/18 04:09 Sodium 138 mmol/L (137-145) 08/31/18 06:34 Potassium 3.9 mmol/L (3.6-5.0) 08/31/18 06:34 Chloride 100.0 mmol/L (98-107) 08/31/18 06:34 Carbon Dioxide 27 mmol/L (22-30) 08/31/18 06:34 15 mmol/L 08/31/18 06:34 BUN 12 mg/dL (7-17) 08/31/18 06:34 0.5 mg/dL (0.7-1.2) L 08/31/18 06:34 Estimated GFR > 60 ml/min 08/31/18 06:34 24 % 08/31/18 06:34 Glucose 180 mg/dL (65-100) H 08/31/18 06:34 POC Glucose 188 (70-105) H 08/31/18 07:55 Calcium 9.3 mg/dL (8.4-10.2) 08/31/18 06:34 Magnesium 1.70 mg/dL (1.7-2.3) 08/28/18 04:09 1.10 mg/dL (0.1-1.2) 08/28/18 04:09 AST 15 units/L (5-40) 08/28/18 04:09 ALT 12 units/L (7-56) 08/28/18 04:09 50 units/L (35-129) 08/28/18 04:09 6.8 g/dL (6.3-8.2) 08/28/18 04:09 3.5 g/dL (3.9-5) L 08/28/18 04:09 1.1 % 08/28/18 04:09 Active Medications - Current Medications Current Medications: Generic Name Dose Route Start Last Admin Trade Name Freq PRN Reason Stop Dose Admin Acetaminophen 500 mg 08/27/18 11:40 Tylenol PO Q6H PRN Pain, Mild (1-3) Acetaminophen/Hydrocodone Bitart 1 each 08/31/18 09:30 08/31/18 11:11 [place] 10/325 PO 1 each Q4H PRN Administration Pain, Moderate (4-6) Amlodipine Besylate 10 mg 08/28/18 08:00 08/31/18 09:13 Norvasc PO 10 mg QDAY JOANIE Administration Bisacodyl 10 mg 08/27/18 11:40 Dulcolax [place] QDAY PRN Constipation Dextrose 50 ml 08/27/18 11:28 D50w (25gm) Syringe IV PRN PRN Hypoglycemia Docusate Sodium 100 mg 08/27/18 22:00 08/31/18 09:12 Colace PO 100 mg BID JOANIE Administration Enoxaparin Sodium 40 mg 08/28/18 08:00 08/31/18 09:12 Lovenox SUB-Q 40 mg QDAY JOANIE Administration Escitalopram Oxalate 10 mg 08/28/18 08:00 08/31/18 09:11 Lexapro PO 10 mg QDAY JOANIE Administration Hydrochlorothiazide 25 mg 08/28/18 08:00 08/31/18 09:13 Hctz PO 25 mg QDAY JOANIE Administration Insulin Glargine 10 units 08/27/18 21:00 08/30/18 21:47 Lantus SUB-Q 10 units QHS JOANIE Administration Insulin Human Lispro 0 unit 08/27/18 16:30 08/31/18 09:10 Humalog SUB-Q 1 unit ACHS JOANIE Administration Protocol Magnesium Oxide 400 mg 08/29/18 12:00 08/31/18 09:11 Mag-Ox PO 09/01/18 08:01 400 mg QDAY JOANIE Administration Polyethylene Glycol 17 gm 08/27/18 11:40 Miralax 3350 PO QDAY PRN Constipation Potassium Chloride 20 meq 08/28/18 09:00 08/31/18 09:12 K-Dur PO 09/03/18 08:59 20 meq QDAY JOANIE Administration Nutrition/Malnutrition Assess - Dietary Evaluation Nutrition/Malnutrition Findings: Nutrition Notes Start: 08/28/18 09:02 Freq: Status: Active Protocol: Document 08/28/18 09:02 [facility] (Rec: 08/28/18 09:04 [facility] [email or web address]) Nutrition Notes Need for Assessment 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 Currently uncontrolled sec to non-compliance, per records. Will assess upon further consult or LOS.
[2018-08-31] MEDS: LANTUS SUB-Q SCH (21:48)
[2018-09-01] MEDS: NORCO 10/325 PO PRN ×6 (00:26→20:55)
[2018-09-01] MEDS: LEXAPRO PO SCH (07:44)
[2018-09-01] MEDS: HCTZ PO SCH (07:44)
[2018-09-01] MEDS: K-DUR PO SCH (07:44)
[2018-09-01] MEDS: LOVENOX SUB-Q SCH (07:44)
[2018-09-01] MEDS: NORVASC PO SCH (07:44)
[2018-09-01] MEDS: COLACE PO SCH ×2 (07:45→21:01)
[2018-09-01] MEDS: MAG-OX PO SCH (07:45)
[2018-09-01] MEDS: HumaLOG SUB-Q SCH ×4 (08:08→21:08)
--- NOTE | 2018-09-01 09:39 | Progress Note ---
Assessment and Plan Assessment and plan: Hypertension. Continue Norvasc and hydrochlorothiazide. Monitor BP closely. Diabetes mellitus type 2, uncontrolled. BG slightly elevated. Increase Lantus to 15 units at bedtime. Continue sliding scale and Accu-Cheks. History Interval history: No new issues overnight Hospitalist Physical - Constitutional Vitals: Temp Pulse Resp BP Pulse Ox 98.4 F 71 20 127/75 96 09/01/18 07:44 09/01/18 07:44 09/01/18 07:44 09/01/18 07:44 09/01/18 07:44 General appearance: Present: obese - EENT Eyes: Present: PERRL, EOM intact ENT: hearing intact, clear oral mucosa, dentition normal - Neck Neck: Present: supple, normal ROM - Respiratory Respiratory effort: normal Respiratory: bilateral: CTA - Cardiovascular Rhythm: regular Heart Sounds: Present: S1 & S2. Absent: gallop, rub - Extremities Extremities: no ischemia, No edema, Full ROM - Abdominal General gastrointestinal: soft, non-tender, non-distended, normal bowel sounds - Integumentary Integumentary: Present: clear, warm, dry - Neurologic Neurologic: CNII-XII intact, moves all extremities Results - Labs CBC & Chem 7: 08/28/18 04:09 08/31/18 06:34 Labs: Laboratory Last Values WBC 5.2 K/mm3 (4.5-11.0) 08/28/18 04:09 RBC 2.75 M/mm3 (3.65-5.03) L 08/28/18 04:09 Hgb 8.7 gm/dl (10.1-14.3) L 08/28/18 04:09 Hct 25.5 % (30.3-42.9) L 08/28/18 04:09 MCV 93 fl (79-97) 08/28/18 04:09 MCH 31 pg (28-32) 08/28/18 04:09 MCHC 34 % (30-34) 08/28/18 04:09 RDW 16.3 % (13.2-15.2) H 08/28/18 04:09 Plt Count 226 K/mm3 (140-440) 08/28/18 04:09 Lymph % (Auto) 32.3 % (13.4-35.0) 08/28/18 04:09 [place] % (Auto) 12.9 % (0.0-7.3) H 08/28/18 04:09 Eos % (Auto) 4.9 % (0.0-4.3) H 08/28/18 04:09 Baso % (Auto) 0.6 % (0.0-1.8) 08/28/18 04:09 Lymph # 1.7 K/mm3 (1.2-5.4) 08/28/18 04:09 [place] # 0.7 K/mm3 (0.0-0.8) 08/28/18 04:09 Eos # 0.3 K/mm3 (0.0-0.4) 08/28/18 04:09 Baso # 0.0 K/mm3 (0.0-0.1) 08/28/18 04:09 Seg Neutrophils % 49.3 % (40.0-70.0) 08/28/18 04:09 Seg Neutrophils # 2.6 K/mm3 (1.8-7.7) 08/28/18 04:09 Sodium 138 mmol/L (137-145) 08/31/18 06:34 Potassium 3.9 mmol/L (3.6-5.0) 08/31/18 06:34 Chloride 100.0 mmol/L (98-107) 08/31/18 06:34 Carbon Dioxide 27 mmol/L (22-30) 08/31/18 06:34 15 mmol/L 08/31/18 06:34 BUN 12 mg/dL (7-17) 08/31/18 06:34 0.5 mg/dL (0.7-1.2) L 08/31/18 06:34 Estimated GFR > 60 ml/min 08/31/18 06:34 24 % 08/31/18 06:34 Glucose 180 mg/dL (65-100) H 08/31/18 06:34 POC Glucose 191 (70-105) H 09/01/18 07:30 Calcium 9.3 mg/dL (8.4-10.2) 08/31/18 06:34 Magnesium 1.70 mg/dL (1.7-2.3) 08/28/18 04:09 1.10 mg/dL (0.1-1.2) 08/28/18 04:09 AST 15 units/L (5-40) 08/28/18 04:09 ALT 12 units/L (7-56) 08/28/18 04:09 50 units/L (35-129) 08/28/18 04:09 6.8 g/dL (6.3-8.2) 08/28/18 04:09 3.5 g/dL (3.9-5) L 08/28/18 04:09 1.1 % 08/28/18 04:09 Active Medications - Current Medications Current Medications: Generic Name Dose Route Start Last Admin Trade Name Freq PRN Reason Stop Dose Admin Acetaminophen 500 mg 08/27/18 11:40 Tylenol PO Q6H PRN Pain, Mild (1-3) Acetaminophen/Hydrocodone Bitart 1 each 08/31/18 09:30 09/01/18 09:27 [place] 10/325 PO 1 each Q4H PRN Administration Pain, Moderate (4-6) Amlodipine Besylate 10 mg 08/28/18 08:00 09/01/18 07:44 Norvasc PO 10 mg QDAY JOANIE Administration Bisacodyl 10 mg 08/27/18 11:40 Dulcolax [place] QDAY PRN Constipation Dextrose 50 ml 08/27/18 11:28 D50w (25gm) Syringe IV PRN PRN Hypoglycemia Docusate Sodium 100 mg 08/27/18 22:00 09/01/18 07:45 Colace PO 100 mg BID JOANIE Administration Enoxaparin Sodium 40 mg 08/28/18 08:00 09/01/18 07:44 Lovenox SUB-Q 40 mg QDAY JOANIE Administration Escitalopram Oxalate 10 mg 08/28/18 08:00 09/01/18 07:44 Lexapro PO 10 mg QDAY JOANIE Administration Hydrochlorothiazide 25 mg 08/28/18 08:00 09/01/18 07:44 Hctz PO 25 mg QDAY JOANIE Administration Insulin Glargine 15 units 08/31/18 12:17 08/31/18 21:48 Lantus SUB-Q 15 units QHS JOANIE Administration Insulin Human Lispro 0 unit 08/27/18 16:30 08/31/18 21:48 Humalog SUB-Q Not Given ACHS [facility] Protocol Polyethylene Glycol 17 gm 08/27/18 11:40 Miralax 3350 PO QDAY PRN Constipation Potassium Chloride 20 meq 08/28/18 09:00 09/01/18 07:44 K-Dur PO 09/03/18 08:59 20 meq QDAY JOANIE Administration Nutrition/Malnutrition Assess - Dietary Evaluation Nutrition/Malnutrition Findings: Nutrition Notes Start: 08/28/18 09:02 Freq: Status: Active Protocol: Document 08/28/18 09:02 [facility] (Rec: 08/28/18 09:04 AMITA HIDALGO [email or web address]) Nutrition Notes Need for Assessment generated from: optical laboratory 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 Currently uncontrolled sec to non-compliance, per records. Will assess upon further consult or LOS.
[2018-09-01] MEDS: LANTUS SUB-Q SCH (21:07)
[2018-09-02] MEDS: NORCO 10/325 PO PRN ×5 (00:51→19:55)
[2018-09-02] MEDS: HumaLOG SUB-Q SCH ×4 (07:50→22:30)
[2018-09-02] MEDS: NORVASC PO SCH (09:25)
[2018-09-02] MEDS: COLACE PO SCH ×2 (09:25→22:30)
[2018-09-02] MEDS: HCTZ PO SCH (09:25)
[2018-09-02] MEDS: LOVENOX SUB-Q SCH (09:26)
[2018-09-02] MEDS: K-DUR PO SCH (09:26)
[2018-09-02] MEDS: LEXAPRO PO SCH (09:26)
--- NOTE | 2018-09-02 09:41 | Progress Note ---
Assessment and Plan Assessment and plan: Hypertension. Continue Norvasc and hydrochlorothiazide. Monitor BP closely. Diabetes mellitus type 2, uncontrolled. BG slightly elevated. Increase Lantus to 15 units at bedtime. Continue sliding scale and Accu-Cheks. History Interval history: No new issues overnight Hospitalist Physical - Constitutional Vitals: Temp Pulse Resp BP Pulse Ox 98.5 F 67 18 130/73 99 09/02/18 06:55 09/02/18 06:55 09/02/18 06:55 09/02/18 06:55 09/02/18 06:55 General appearance: Present: obese - EENT Eyes: Present: PERRL, EOM intact ENT: hearing intact, clear oral mucosa, dentition normal - Neck Neck: Present: supple, normal ROM - Respiratory Respiratory effort: normal Respiratory: bilateral: CTA - Cardiovascular Rhythm: regular Heart Sounds: Present: S1 & S2. Absent: gallop, rub - Extremities Extremities: no ischemia, No edema, Full ROM - Abdominal General gastrointestinal: soft, non-tender, non-distended, normal bowel sounds - Integumentary Integumentary: Present: clear, warm, dry - Neurologic Neurologic: CNII-XII intact, moves all extremities Results - Labs CBC & Chem 7: 08/28/18 04:09 08/31/18 06:34 Labs: Laboratory Last Values WBC 5.2 K/mm3 (4.5-11.0) 08/28/18 04:09 RBC 2.75 M/mm3 (3.65-5.03) L 08/28/18 04:09 Hgb 8.7 gm/dl (10.1-14.3) L 08/28/18 04:09 Hct 25.5 % (30.3-42.9) L 08/28/18 04:09 MCV 93 fl (79-97) 08/28/18 04:09 MCH 31 pg (28-32) 08/28/18 04:09 MCHC 34 % (30-34) 08/28/18 04:09 RDW 16.3 % (13.2-15.2) H 08/28/18 04:09 Plt Count 226 K/mm3 (140-440) 08/28/18 04:09 Lymph % (Auto) 32.3 % (13.4-35.0) 08/28/18 04:09 [place] % (Auto) 12.9 % (0.0-7.3) H 08/28/18 04:09 Eos % (Auto) 4.9 % (0.0-4.3) H 08/28/18 04:09 Baso % (Auto) 0.6 % (0.0-1.8) 08/28/18 04:09 Lymph # 1.7 K/mm3 (1.2-5.4) 08/28/18 04:09 [place] # 0.7 K/mm3 (0.0-0.8) 08/28/18 04:09 Eos # 0.3 K/mm3 (0.0-0.4) 08/28/18 04:09 Baso # 0.0 K/mm3 (0.0-0.1) 08/28/18 04:09 Seg Neutrophils % 49.3 % (40.0-70.0) 08/28/18 04:09 Seg Neutrophils # 2.6 K/mm3 (1.8-7.7) 08/28/18 04:09 Sodium 138 mmol/L (137-145) 08/31/18 06:34 Potassium 3.9 mmol/L (3.6-5.0) 08/31/18 06:34 Chloride 100.0 mmol/L (98-107) 08/31/18 06:34 Carbon Dioxide 27 mmol/L (22-30) 08/31/18 06:34 15 mmol/L 08/31/18 06:34 BUN 12 mg/dL (7-17) 08/31/18 06:34 0.5 mg/dL (0.7-1.2) L 08/31/18 06:34 Estimated GFR > 60 ml/min 08/31/18 06:34 24 % 08/31/18 06:34 Glucose 180 mg/dL (65-100) H 08/31/18 06:34 POC Glucose 164 (70-105) H 09/02/18 07:17 Calcium 9.3 mg/dL (8.4-10.2) 08/31/18 06:34 Magnesium 1.70 mg/dL (1.7-2.3) 08/28/18 04:09 1.10 mg/dL (0.1-1.2) 08/28/18 04:09 AST 15 units/L (5-40) 08/28/18 04:09 ALT 12 units/L (7-56) 08/28/18 04:09 50 units/L (35-129) 08/28/18 04:09 6.8 g/dL (6.3-8.2) 08/28/18 04:09 3.5 g/dL (3.9-5) L 08/28/18 04:09 1.1 % 08/28/18 04:09 Active Medications - Current Medications Current Medications: Generic Name Dose Route Start Last Admin Trade Name Freq PRN Reason Stop Dose Admin Acetaminophen 500 mg 08/27/18 11:40 Tylenol PO Q6H PRN Pain, Mild (1-3) Acetaminophen/Hydrocodone Bitart 1 each 08/31/18 09:30 09/02/18 09:31 [place] 10/325 PO 1 each Q4H PRN Administration Pain, Moderate (4-6) Amlodipine Besylate 10 mg 08/28/18 08:00 09/02/18 09:25 Norvasc PO 10 mg QDAY JOANIE Administration Bisacodyl 10 mg 08/27/18 11:40 Dulcolax [place] QDAY PRN Constipation Dextrose 50 ml 08/27/18 11:28 D50w (25gm) Syringe IV PRN PRN Hypoglycemia Docusate Sodium 100 mg 08/27/18 22:00 09/02/18 09:25 Colace PO 100 mg BID JOANIE Administration Enoxaparin Sodium 40 mg 08/28/18 08:00 09/02/18 09:26 Lovenox SUB-Q 40 mg QDAY JOANIE Administration Escitalopram Oxalate 10 mg 08/28/18 08:00 09/02/18 09:26 Lexapro PO 10 mg QDAY JOANIE Administration Hydrochlorothiazide 25 mg 08/28/18 08:00 09/02/18 09:25 Hctz PO 25 mg QDAY JOANIE Administration Insulin Glargine 15 units 08/31/18 12:17 09/01/18 21:07 Lantus SUB-Q 15 units QHS JOANIE Administration Insulin Human Lispro 0 unit 08/27/18 16:30 09/01/18 21:08 Humalog SUB-Q Not Given ACHS [facility] Protocol Polyethylene Glycol 17 gm 08/27/18 11:40 Miralax 3350 PO QDAY PRN Constipation Potassium Chloride 20 meq 08/28/18 09:00 09/02/18 09:26 K-Dur PO 09/03/18 08:59 20 meq QDAY JOANIE Administration Nutrition/Malnutrition Assess - Dietary Evaluation Nutrition/Malnutrition Findings: Nutrition Notes Start: 08/28/18 09:02 Freq: Status: Active Protocol: Document 08/28/18 09:02 [facility] (Rec: 08/28/18 09:04 AMITA HIDALGO [email or web address]) Nutrition Notes Need for Assessment generated from: telephone order 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 Currently uncontrolled sec to non-compliance, per records. Will assess upon further consult or LOS.
[2018-09-02] MEDS: LANTUS SUB-Q SCH (22:29)
[2018-09-03] MEDS: NORCO 10/325 PO PRN ×5 (00:56→21:35)
[2018-09-03 06:18] LABS: BUN/Creatinine Ratio 22; Blood Urea Nitrogen 11 mg/dL (7-17); Calcium 9.3 mg/dL (8.4-10.2); Hemolysis Index 0
--- NOTE | 2018-09-03 07:53 | Progress Note ---
Assessment and Plan Assessment and plan: Patient is a 63 yo woman with a history of IDDM, HTN, Obesity, Anxiety, Depression admitted to IRU after hospitalization for Right ORIF. Consult placed by Dr. Abel for medical management of HTN, and DM. Hypertension. Continue Norvasc and hydrochlorothiazide. Monitor BP closely. Low salt diet Diabetes mellitus type 2, uncontrolled. BG slightly elevated. Increase Lantus to 15 units at bedtime. Continue sliding scale and Accu-Cheks. ADA diet Right femur fracture s/p Closed reduction and insertion of intramedullary nail right femur was done on 08/20/2018: per IRU physician R thigh blisters no evidence of infection, likely due to irritation from dressing, addressed prior to IRU stay Acute blood loss anemia- sp 1 unit prbc, expected outcome of surgery History Interval history: Hospitalist Manager Marketing for Hypertension and DM Patient was seen and examined. Follow-up on current diagnosis of hypertension and DM. No overnight events reported to me. Patient denies any chest pain, shortness breath, nausea/vomiting or severe headaches. Imaging, nursing note, chart, labs and old chart reviewed. Discussed with patient. Hospitalist Physical - Physical exam Narrative exam: Gen: WDWN, NAD, Awake, Alert, Orientated HEENT: NCAT, EOMI, PERRL, OP Clear Neck: supple, no adenopathy, no thyromegaly, no JVD CVS/Heart: RRR, normal S1S2, pulses present bilaterally Chest/Lungs: CTA B, Symmetrical chest expansion, good air entry bilaterally GI/Abdomen: soft, NTND, good bowel sounds, no guarding or rebound /Bladder: no suprapubic tenderness, no CVA or paraspinal tenderness Extermity/Skin: no c/c/e, no obvious rash MSK: FROM x 4 Neuro: CN 2-12 grossly intact, no new focal deficits Psych: calm - Constitutional Vitals: Temp Pulse Resp BP Pulse Ox 98.0 F 70 19 128/71 97 09/03/18 07:15 09/03/18 07:15 09/03/18 07:15 09/03/18 07:15 09/03/18 07:15 General appearance: Absent: obese Results - Labs CBC & Chem 7: 08/28/18 04:09 09/03/18 05:25 Labs: Laboratory Last Values WBC 5.2 K/mm3 (4.5-11.0) 08/28/18 04:09 RBC 2.75 M/mm3 (3.65-5.03) L 08/28/18 04:09 Hgb 8.7 gm/dl (10.1-14.3) L 08/28/18 04:09 Hct 25.5 % (30.3-42.9) L 08/28/18 04:09 MCV 93 fl (79-97) 08/28/18 04:09 MCH 31 pg (28-32) 08/28/18 04:09 MCHC 34 % (30-34) 08/28/18 04:09 RDW 16.3 % (13.2-15.2) H 08/28/18 04:09 Plt Count 226 K/mm3 (140-440) 08/28/18 04:09 Lymph % (Auto) 32.3 % (13.4-35.0) 08/28/18 04:09 [place] % (Auto) 12.9 % (0.0-7.3) H 08/28/18 04:09 Eos % (Auto) 4.9 % (0.0-4.3) H 08/28/18 04:09 Baso % (Auto) 0.6 % (0.0-1.8) 08/28/18 04:09 Lymph # 1.7 K/mm3 (1.2-5.4) 08/28/18 04:09 [place] # 0.7 K/mm3 (0.0-0.8) 08/28/18 04:09 Eos # 0.3 K/mm3 (0.0-0.4) 08/28/18 04:09 Baso # 0.0 K/mm3 (0.0-0.1) 08/28/18 04:09 Seg Neutrophils % 49.3 % (40.0-70.0) 08/28/18 04:09 Seg Neutrophils # 2.6 K/mm3 (1.8-7.7) 08/28/18 04:09 Sodium 139 mmol/L (137-145) 09/03/18 05:25 Potassium 3.9 mmol/L (3.6-5.0) 09/03/18 05:25 Chloride 101.8 mmol/L (98-107) 09/03/18 05:25 Carbon Dioxide 27 mmol/L (22-30) 09/03/18 05:25 14 mmol/L 09/03/18 05:25 BUN 11 mg/dL (7-17) 09/03/18 05:25 0.5 mg/dL (0.7-1.2) L 09/03/18 05:25 Estimated GFR > 60 ml/min 09/03/18 05:25 22 % 09/03/18 05:25 Glucose 125 mg/dL (65-100) H 09/03/18 05:25 POC Glucose 168 (70-105) H 09/02/18 21:39 Calcium 9.3 mg/dL (8.4-10.2) 09/03/18 05:25 Magnesium 1.70 mg/dL (1.7-2.3) 08/28/18 04:09 1.10 mg/dL (0.1-1.2) 08/28/18 04:09 AST 15 units/L (5-40) 08/28/18 04:09 ALT 12 units/L (7-56) 08/28/18 04:09 50 units/L (35-129) 08/28/18 04:09 6.8 g/dL (6.3-8.2) 08/28/18 04:09 3.5 g/dL (3.9-5) L 08/28/18 04:09 1.1 % 08/28/18 04:09 Active Medications - Current Medications Current Medications: Generic Name Dose Route Start Last Admin Trade Name Freq PRN Reason Stop Dose Admin Acetaminophen 500 mg 08/27/18 11:40 Tylenol PO Q6H PRN Pain, Mild (1-3) Acetaminophen/Hydrocodone Bitart 1 each 08/31/18 09:30 09/03/18 07:28 [place] 10/325 PO 1 each Q4H PRN Administration Pain, Moderate (4-6) Amlodipine Besylate 10 mg 08/28/18 08:00 09/02/18 09:25 Norvasc PO 10 mg QDAY JOANIE Administration Bisacodyl 10 mg 08/27/18 11:40 Dulcolax [place] QDAY PRN Constipation Dextrose 50 ml 08/27/18 11:28 D50w (25gm) Syringe IV PRN PRN Hypoglycemia Docusate Sodium 100 mg 08/27/18 22:00 09/02/18 22:30 Colace PO 100 mg BID JOANIE Administration Enoxaparin Sodium 40 mg 08/28/18 08:00 09/02/18 09:26 Lovenox SUB-Q 40 mg QDAY JOANIE Administration Escitalopram Oxalate 10 mg 08/28/18 08:00 09/02/18 09:26 Lexapro PO 10 mg QDAY JOANIE Administration Hydrochlorothiazide 25 mg 08/28/18 08:00 09/02/18 09:25 Hctz PO 25 mg QDAY JOANIE Administration Insulin Glargine 15 units 08/31/18 12:17 09/02/18 22:29 Lantus SUB-Q 15 units QHS JOANIE Administration Insulin Human Lispro 0 unit 08/27/18 16:30 09/02/18 22:30 Humalog SUB-Q 1 unit ACHS JOANIE Administration Protocol Polyethylene Glycol 17 gm 08/27/18 11:40 Miralax 3350 PO QDAY PRN Constipation Potassium Chloride 20 meq 08/28/18 09:00 09/02/18 09:26 K-Dur PO 09/03/18 08:59 20 meq QDAY JOANIE Administration Nutrition/Malnutrition Assess - Dietary Evaluation Nutrition/Malnutrition Findings: Nutrition Notes Start: 08/28/18 09:02 Freq: Status: Active Protocol: Document 08/28/18 09:02 [facility] (Rec: 08/28/18 09:04 [facility] [id number] [email or web address]) Nutrition Notes Need for Assessment generated from: color receiver Initial or Follow up Brief Note Current Diet Consistent CHO Subjective/Other Information Pt screened for new onset DM, however, pt with PMHx of DM. Currently uncontrolled sec to non-compliance, per records. Will assess upon further consult or LOS.
[2018-09-03] MEDS: COLACE PO SCH ×2 (10:05→21:35)
[2018-09-03] MEDS: LEXAPRO PO SCH (10:05)
[2018-09-03] MEDS: LOVENOX SUB-Q SCH (10:06)
[2018-09-03] MEDS: NORVASC PO SCH (10:06)
[2018-09-03] MEDS: K-DUR PO SCH (10:06)
[2018-09-03] MEDS: HCTZ PO SCH (10:06)
[2018-09-03] MEDS: HumaLOG SUB-Q SCH ×4 (10:11→22:55)
--- NOTE | 2018-09-03 11:54 | Progress Note ---
Subjective Date of service: 09/03/18 Principal diagnosis: right midshaft femur fracture Interval history: 63-year-old female presented to the ED after a slip and fall with increased pain on the right lower extremity. She was evaluated and found to have a right mid shaft femur fracture. She was scheduled for surgery and underwent surgical repair on August [address] Concepcion and placed a intramedullary nail. She has a history of hypertension and diabetes which are poorly controlled due to decreas ed compliance. Also states that she has anxiety for which she just recently started getting medications within the past 3 months but she cannot remember the name of the medication, review of [facility] PDM P does not show any benzodiazepines. We'll attempt to look further into what medications were prescribed for her anxiety and restart those if possible. Currently states that her right shoulder is also hurting and may have been injured in the original fall. There is some confusion with ordering of a shoulder x-ray, we do not see any orders anywhere from the acute side however due to her complaints are placed in order now. After the patient was medically stabilized they were transferred f or further rehabilitation. All available medical records have been reviewed. Plan of care was discussed with patient. Patient is participating in therapy and making reasonable progress. Taking rest breaks as needed. Patient continues to have pain in the right lower extremity near the surgical site with activity. Pain medications were adjusted and modalities are being used. Continue modalities with therapy in order to continue improving. IV pain medications are no longer being used. We'll continue to utilize modalities as well as available pain medications to alleviate her pain. Explained to her that the goal is functional pain management so that she is able to still participate with therapy and improve her condition overall. She will still have some soreness and that is to be exp ected. +BM. Denies palpitations, dyspnea, cough, N/V, weakness, or joint pain. All records, vitals, labs and medications were reviewed. No other issues per patient, nursing or therapy. Objective - Exam Narrative Exam: MUSCULOSKELETAL SPECIALTY EXAM CONSTITUTIONAL: Well developed, well nourished, appropriately groomed obese female EENT: Hearing intact to soft voice RESPIRATORY: Clear to auscultation bilaterally, no increased work of breathing CARDIOVASCULAR: Regular Rate/ Rhythm, no swelling, edema or tenderness in BUE or BLE. All extremities warm. GI: + bowel sounds, soft, NTTP, nondistended. INTEGUMENTARY: Normal, no lesion, rash, masses or bruising noted in extremities except for blisters on upper right thigh and surgical wounds on right leg. MUSCULOSKELETAL: BUE and BLE normal without defect, crepitus, subluxation, effusion, arthritic changes or TTP except Right lower extremity has surgical wound, right shoulder has tenderness to palpation. LUE 4+/5, good ROM, with normal tone. RUE has decreased strength and ROM due to pain at shoulder (improved), normal tone. LLE 4+/5 good ROM, with normal tone. RLE has decreased strength and ROM due to pain, normal tone. NEURO: CN 2-12 grossly intact. Sensation intact in all extremities. No tremor noted in 4 extremities. POSTURE and GAIT: Sitting posture good. Balance and Gait deferred until seen with therapy. PSYCH: Alert, orientated x3, affect appears anxious. Insight appears intact. - Constitutional Vitals: Vital Signs - 12hr 09/03/18 09/03/18 09/03/18 05:06 05:20 07:15 Temperature 37.1 C 36.7 C Pulse Rate 66 70 70 Respiratory 18 19 Rate Blood Pressure 134/66 128/71 [Left] O2 Sat by Pulse 94 97 97 Oximetry - Allied health notes Allied health notes reviewed: nursing, PT, OT FIMS assessment as documented by PT/OT/ST: Grooming Patient cleans teeth/dentures: Yes Patient vega/brushes hair: Yes Patient washes, rinses and Yes dries face: Patient washes, rinses and Yes dries hands: Patient shaves: No Patient applies make-up: Yes Patient performs (no make-up/ 4/4 (100%) shaving): Patient performs (w/ make-up/ 5/5 (100%) shaving): Grooming FIM Score 5. Supervision ([place] applies toothpaste or opens containers.) Toileting Toileting Device Bedside Commode Toileting FIM Score 2. Maximal Assistance (Patient = 25% or more) Social interaction/Memory/Problem solving Social Interaction FIM Score 5. Supervision (Needs supv. <10%. Needs encouragement to participate.) Memory FIM Score 5. Supervision (Needs cueing <10%, stressful/ unfamiliar situations.) Problem Solving FIM Score 5. Supervision (Needs cueing <10% to solve routine problems.) Transfers Mode of Locomotion: Wheelchair Bed/Chair/Wheelchair Transfers 4. Minimal Assistance (Patient = 75% or more. FIM Score Needs touching.) Toilet Transfers FIM Score 4. Minimal Assistance (Patient = 75% or more. Needs touching.) Patient transferred to: Shower Shower Transfers FIM Score 4. Minimal Assistance (Patient = 75% or more. Needs touching.) Locomotion- Stairs Device used on Stairs Handrail/s Number of Stairs Ascended/ 4 Descended Patient used handrail/support: Yes Stairs FIM Score 2. Maximal Assistance (Patient = 25% or more, 4- 6 stairs.) Locomotion- walk/wheelchair Most Frequent Mode of Walking Locomotion: Ambulation Distance 170 Walking FIM Score 4. Minimal Assistance (Patient = 75% or more. Minimum of 150 ft.) Wheelchair Propulsion Distance 300 Wheelchair FIM Score 6. Modified [place] (Wheels a minimum of 150 ft.) Eating Eating FIM Score 5. Supervision/Set-Up (Needs help w/ containers, cutting meat, etc.) Dressing-Upper body Patient retrieves clothing No items: Patient applies/removes UE No prosthesis or orthosis: Upper Body Dressing FIM Score 5. Supv./Set-Up ([place] sets out clothes or applies pros./orth.) Dressing-lower body Patient retrieves clothing No items: Patient applies/removes LE Yes: knee immoblizer prosthesis or orthosis: Lower Body Dressing FIM Score 2. Maximal Assistance (Patient = 25% or more) - Labs CBC & Chem 7: 08/28/18 04:09 09/03/18 05:25 Labs: Laboratory Results - last 72 hr 08/31/18 08/31/18 08/31/18 12:21 16:23 21:43 Sodium Potassium Chloride Carbon Dioxide Anion Gap BUN Creatinine Estimated GFR BUN/Creatinine Ratio Glucose POC Glucose 167 H 227 H 177 H Calcium 09/01/18 09/01/18 09/01/18 07:30 11:14 16:06 Sodium Potassium Chloride Carbon Dioxide Anion Gap BUN Creatinine Estimated GFR BUN/Creatinine Ratio Glucose POC Glucose 191 H 195 H 205 H Calcium 09/01/18 09/02/18 09/02/18 20:36 07:17 12:11 Sodium Potassium Chloride Carbon Dioxide Anion Gap BUN Creatinine Estimated GFR BUN/Creatinine Ratio Glucose POC Glucose 148 H 164 H 159 H Calcium 09/02/18 09/02/18 09/03/18 16:42 21:39 05:25 Sodium 139 Potassium 3.9 Chloride 101.8 Carbon Dioxide 27 Anion Gap 14 BUN 11 Creatinine 0.5 L Estimated GFR > 60 BUN/Creatinine Ratio 22 Glucose 125 H POC Glucose 203 H 168 H Calcium 9.3 09/03/18 07:26 Sodium Potassium Chloride Carbon Dioxide Anion Gap BUN Creatinine Estimated GFR BUN/Creatinine Ratio Glucose POC Glucose 100 Calcium Assessment and Plan S72.91XS right femur fracture sequela: Weightbearing as tolerated, continue therapy as above, pain control, DVT prophylaxis. M25.511 R shoulder pain: XR, monitor pain. Possible further imaging if worsening pain. E11.9 diabetes: Continue medications and carb control diet. Adjust insulin as needed I10 Hypertension: Continue medications and monitor. Adjust as needed. R41.8 Anxiety with depression: Continue lexapro Z73.6 ADL dysfunction: OT will work on improving ability to perform ADLs (including assistive devices) to increase independence and decrease caregiver burden and improve functional transfers and mobility training. R26.2 Difficulty walking: PT will work on gait training and proper use of ass istive devices and advance as appropriate to use of stairs and outside ambulation on uneven surfaces. R26.81 Unsteadiness on feet: PT will work on improving static and dynamic sitting and standing balance as well as proper use of assistive devices to decrease risk of falls. R26.89 Abnormality of gait: PT will work to improve safety and efficiency of gait through neuromotor training and gait training along with instruction on proper use of assistive devices. M62.81 Muscle weakness: PT & OT will work on strengthening exercises to improve functional strength including mixture of closed and open kinetic chain exercises. R53.81 Debility: PT & OT will work on improving overall functional status to improve participation with ADLs, mobility and social involvement. R53.83 Fatigue: PT & OT will work on improving endurance through aerobic exercises and therapeutic activity while monitoring patients tolerance for activity and vital signs as needed. E87.6 Hypokalemia: Resolved Internal medicine consult for HTN. DM management DVT ppx: lovenox, will look to switch to OAC before discharge Pain: Continue physical modalities in therapy and pain medications as needed to achieve functional pain control. Sleep: Monitor and address as needed. Bowel: Monitor and address as needed. Appetite: Monitor and address as needed. Discharge planning: Pending therapy progress and care plan meeting. Will continue discussion with therapy team, SW, patient and family. Restrictions/ Precautions: Falls, WBAT RLE WB status: FWB Functional Hx: ADLs: Independent Cognition: Independent Mobility: No AD Barriers to Discharge: Decreased mobility and ability to perform self care, balance deficits, weakness Estimated Length of Stay: 10-14 days Discharge Destination: Home alone
[2018-09-03 12:12] LABS: Hematocrit 31.1 % (30.3-42.9); Hemoglobin 10.5 gm/dl (10.1-14.3); Mean Corpuscular HGB Conc 34 % (30-34); Mean Corpuscular Volume 94 fl (79-97); Platelet Count 279 K/mm3 (140-440); Red Blood Count 3.32 M/mm3 (3.65-5.03); Red Cell Distribution Width 17.1 % (13.2-15.2)
[2018-09-03] MEDS: LANTUS SUB-Q SCH (22:55)
[2018-09-04] MEDS: NORCO 10/325 PO PRN ×4 (03:34→23:06)
[2018-09-04] MEDS: LEXAPRO PO SCH (08:16)
[2018-09-04] MEDS: NORVASC PO SCH (08:17)
[2018-09-04] MEDS: LOVENOX SUB-Q SCH (08:17)
[2018-09-04] MEDS: HCTZ PO SCH (08:17)
[2018-09-04] MEDS: COLACE PO SCH ×2 (08:17→23:08)
--- NOTE | 2018-09-04 15:11 | Progress Note ---
Assessment and Plan Assessment and plan: Patient is a 63 yo woman with a history of IDDM, HTN, Obesity, Anxiety, Depression admitted to IRU after hospitalization for Right ORIF. Consult placed by Dr. Abel for medical management of HTN, and DM. Hypertension. Continue Norvasc and hydrochlorothiazide. Monitor BP closely. Low salt diet Diabetes mellitus type 2, uncontrolled. BG slightly elevated. Increase Lantus to 15 units at bedtime. Continue sliding scale and Accu-Cheks. ADA diet Right femur fracture s/p Closed reduction and insertion of intramedullary nail right femur was done on 08/20/2018: per IRU physician R thigh blisters no evidence of infection, likely due to irritation from dressing, addressed prior to IRU stay Acute blood loss anemia- sp 1 unit prbc, expected outcome of surgery History Interval history: Hospitalist [facility] Hand for Hypertension and DM Patient was seen and examined. Follow-up on current diagnosis of hypertension and DM. No overnight events reported to me. Patient denies any chest pain, shortness breath, nausea/vomiting or severe headaches. Imaging, nursing note, chart, labs and old chart reviewed. Discussed with patient. Hospitalist Physical - Physical exam Narrative exam: Gen: WDWN, NAD, Awake, Alert, Orientated HEENT: NCAT, EOMI, PERRL, OP Clear Neck: supple, no adenopathy, no thyromegaly, no JVD CVS/Heart: RRR, normal S1S2, pulses present bilaterally Chest/Lungs: CTA B, Symmetrical chest expansion, good air entry bilaterally GI/Abdomen: soft, NTND, good bowel sounds, no guarding or rebound /Bladder: no suprapubic tenderness, no CVA or paraspinal tenderness Extermity/Skin: no c/c/e, no obvious rash MSK: FROM x 4 Neuro: CN 2-12 grossly intact, no new focal deficits Psych: calm - Constitutional Vitals: Temp Pulse Resp BP Pulse Ox 98.2 F 73 18 121/67 100 09/04/18 03:55 09/04/18 03:50 09/04/18 03:50 09/04/18 03:50 09/04/18 03:50 General appearance: Absent: obese Results - Labs CBC & Chem 7: 09/03/18 11:56 09/03/18 05:25 Labs: Laboratory Last Values WBC 5.5 K/mm3 (4.5-11.0) 09/03/18 11:56 RBC 3.32 M/mm3 (3.65-5.03) L 09/03/18 11:56 Hgb 10.5 gm/dl (10.1-14.3) 09/03/18 11:56 Hct 31.1 % (30.3-42.9) 09/03/18 11:56 MCV 94 fl (79-97) 09/03/18 11:56 MCH 32 pg (28-32) 09/03/18 11:56 MCHC 34 % (30-34) 09/03/18 11:56 RDW 17.1 % (13.2-15.2) H 09/03/18 11:56 Plt Count 279 K/mm3 (140-440) 09/03/18 11:56 Lymph % (Auto) 32.3 % (13.4-35.0) 08/28/18 04:09 [place] % (Auto) 12.9 % (0.0-7.3) H 08/28/18 04:09 Eos % (Auto) 4.9 % (0.0-4.3) H 08/28/18 04:09 Baso % (Auto) 0.6 % (0.0-1.8) 08/28/18 04:09 Lymph # 1.7 K/mm3 (1.2-5.4) 08/28/18 04:09 [place] # 0.7 K/mm3 (0.0-0.8) 08/28/18 04:09 Eos # 0.3 K/mm3 (0.0-0.4) 08/28/18 04:09 Baso # 0.0 K/mm3 (0.0-0.1) 08/28/18 04:09 Seg Neutrophils % 49.3 % (40.0-70.0) 08/28/18 04:09 Seg Neutrophils # 2.6 K/mm3 (1.8-7.7) 08/28/18 04:09 Sodium 139 mmol/L (137-145) 09/03/18 05:25 Potassium 3.9 mmol/L (3.6-5.0) 09/03/18 05:25 Chloride 101.8 mmol/L (98-107) 09/03/18 05:25 Carbon Dioxide 27 mmol/L (22-30) 09/03/18 05:25 14 mmol/L 09/03/18 05:25 BUN 11 mg/dL (7-17) 09/03/18 05:25 0.5 mg/dL (0.7-1.2) L 09/03/18 05:25 Estimated GFR > 60 ml/min 09/03/18 05:25 22 % 09/03/18 05:25 Glucose 125 mg/dL (65-100) H 09/03/18 05:25 POC Glucose 171 (70-105) H 09/03/18 21:32 Calcium 9.3 mg/dL (8.4-10.2) 09/03/18 05:25 Magnesium 1.70 mg/dL (1.7-2.3) 08/28/18 04:09 1.10 mg/dL (0.1-1.2) 08/28/18 04:09 AST 15 units/L (5-40) 08/28/18 04:09 ALT 12 units/L (7-56) 08/28/18 04:09 50 units/L (35-129) 08/28/18 04:09 6.8 g/dL (6.3-8.2) 08/28/18 04:09 3.5 g/dL (3.9-5) L 08/28/18 04:09 1.1 % 08/28/18 04:09 Active Medications - Current Medications Current Medications: Generic Name Dose Route Start Last Admin Trade Name Freq PRN Reason Stop Dose Admin Acetaminophen 500 mg 08/27/18 11:40 Tylenol PO Q6H PRN Pain, Mild (1-3) Acetaminophen/Hydrocodone Bitart 1 each 08/31/18 09:30 09/04/18 08:17 [place] 10/325 PO 1 each Q4H PRN Administration Pain , Severe (7-10) Amlodipine Besylate 10 mg 08/28/18 08:00 09/04/18 08:17 Norvasc PO 10 mg QDAY JOANIE Administration Bisacodyl 10 mg 08/27/18 11:40 Dulcolax MI QDAY PRN Constipation Dextrose 50 ml 08/27/18 11:28 D50w (25gm) Syringe IV PRN PRN Hypoglycemia Docusate Sodium 100 mg 08/27/18 22:00 09/04/18 08:17 Colace PO 100 mg BID JOANIE Administration Enoxaparin Sodium 40 mg 08/28/18 08:00 09/04/18 08:17 Lovenox SUB-Q 40 mg QDAY JOANIE Administration Escitalopram Oxalate 10 mg 08/28/18 08:00 09/04/18 08:16 Lexapro PO 10 mg QDAY JOANIE Administration Hydrochlorothiazide 25 mg 08/28/18 08:00 09/04/18 08:17 Hctz PO 25 mg QDAY JOANIE Administration Insulin Glargine 15 units 08/31/18 12:17 09/03/18 22:55 Lantus SUB-Q 15 units QHS JOANIE Administration Insulin Human Lispro 0 unit 08/27/18 16:30 09/03/18 22:55 Humalog SUB-Q 1 unit ACHS JOANIE Administration Protocol Polyethylene Glycol 17 gm 08/27/18 11:40 Miralax 3350 PO QDAY PRN Constipation Nutrition/Malnutrition Assess - Dietary Evaluation Nutrition/Malnutrition Findings: Nutrition Notes Start: 08/28/18 09:02 Freq: Status: Active Protocol: Document 09/03/18 16:51 RM (Rec: 09/03/18 16:51 RM [email or web address]) Nutrition Notes Need for Assessment generated from: LOS Initial or Follow up Brief Note Height 5 ft 4 in Weight 79.3 kg [place] Body Weight (kg) 54.54 BMI 29.9 Subjective/Other Information Screened for LOS. PO intake 82% X 1 week Nutrition Intervention Revisit per MD consult or patient Sign Off request:
[2018-09-04] MEDS: HumaLOG SUB-Q SCH ×2 (18:29→18:31)
[2018-09-04] MEDS: LANTUS SUB-Q SCH (23:09)
[2018-09-05] MEDS: HumaLOG SUB-Q SCH ×6 (00:20→21:27)
[2018-09-05] MEDS: NORCO 10/325 PO PRN ×4 (03:41→21:13)
[2018-09-05] MEDS: LOVENOX SUB-Q SCH (08:17)
[2018-09-05] MEDS: HCTZ PO SCH (08:17)
[2018-09-05] MEDS: LEXAPRO PO SCH (08:17)
[2018-09-05] MEDS: NORVASC PO SCH (08:18)
[2018-09-05] MEDS: COLACE PO SCH ×2 (08:18→21:13)
--- NOTE | 2018-09-05 10:45 | Progress Note ---
Subjective Date of service: 09/05/18 Principal diagnosis: right midshaft femur fracture Interval history: 63-year-old female presented to the ED after a slip and fall with increased pain on the right lower extremity. She was evaluated and found to have a right mid shaft femur fracture. She was scheduled for surgery and underwent surgical repair on August [address] Concepcion and placed a intramedullary nail. She has a history of hypertension and diabetes which are poorly controlled due to decreas ed compliance. Also states that she has anxiety for which she just recently started getting medications within the past 3 months but she cannot remember the name of the medication, review of [facility] PDM P does not show any benzodiazepines. We'll attempt to look further into what medications were prescribed for her anxiety and restart those if possible. Currently states that her right shoulder is also hurting and may have been injured in the original fall. There is some confusion with ordering of a shoulder x-ray, we do not see any orders anywhere from the acute side however due to her complaints are placed in order now. After the patient was medically stabilized they were transferred f or further rehabilitation. All available medical records have been reviewed. Plan of care was discussed with patient. Patient is participating in therapy and making reasonable progress. Taking rest breaks as needed. Pain is improved and range of motion is also improved in RLE, but not full. We'll continue to utilize modalities as well as available pain medications to alleviate her pain. Explained to her that the goal is functional pain management so that she is able to still participate with therapy and improve her condition overall. She will still have some soreness and that is to be expected. Will remove staple today, appears well healed. +BM. Denies palpitations, dyspnea, cough, N/V, weakness, or joint pain. All records, vitals, labs and medications were reviewed. No other issues per patient, nursing or therapy. Objective - Exam Narrative Exam: MUSCULOSKELETAL SPECIALTY EXAM CONSTITUTIONAL: Well developed, well nourished, appropriately groomed obese female EENT: Hearing intact to soft voice RESPIRATORY: Clear to auscultation bilaterally, no increased work of breathing CARDIOVASCULAR: Regular Rate/ Rhythm, no swelling, edema or tenderness in BUE or BLE. All extremities warm. GI: + bowel sounds, soft, NTTP, nondistended. INTEGUMENTARY: Normal, no lesion, rash, masses or bruising noted in extremities except for blisters on upper right thigh and surgical wounds on right leg. MUSCULOSKELETAL: BUE and BLE normal without defect, crepitus, subluxation, effusion, arthritic changes or TTP except Right lower extremity has surgical wound, right shoulder has tenderness to palpation. LUE 4+/5, good ROM, with normal tone. RUE has decreased strength and ROM due to pain at shoulder (improved), normal tone. LLE 4+/5 good ROM, with normal tone. RLE has decreased strength and ROM due to pain, normal tone. NEURO: CN 2-12 grossly intact. Sensation intact in all extremities. No tremor noted in 4 extremities. POSTURE and GAIT: Sitting posture good. Balance and Gait are reasonable, improving. PSYCH: Alert, orientated x3, affect normal. Insight appears intact. - Constitutional Vitals: Vital Signs - 12hr 09/05/18 09/05/18 09/05/18 00:32 03:41 07:29 Temperature 36.8 C 36.6 C Pulse Rate 83 89 Respiratory 17 18 18 Rate Blood Pressure 122/77 Blood Pressure 126/65 [Left] O2 Sat by Pulse 97 97 Oximetry 09/05/18 08:18 Temperature Pulse Rate 88 Respiratory Rate Blood Pressure 122/77 Blood Pressure [Left] O2 Sat by Pulse Oximetry - Allied health notes Allied health notes reviewed: nursing, PT, OT FIMS assessment as documented by PT/OT/ST: Grooming Patient cleans teeth/dentures: Yes Patient vega/brushes hair: Yes Patient washes, rinses and Yes dries face: Patient washes, rinses and Yes dries hands: Patient shaves: No Patient applies make-up: No Patient performs (no make-up/ /4 (100%) shaving): Patient performs (w/ make-up/ 5/5 (100%) shaving): Grooming FIM Score 5. Supervision (Moore applies toothpaste or opens containers.) Toileting Toileting Device Commode over Toilet Patient able to: Adjust clothes before,Clean self,Adjust clothes after Patient able to perform: 3/3 (100%) Toileting FIM Score 5. Supv./Set-Up (Needs stand-by, set-up, applying prosth/orth.) Social interaction/Memory/Problem solving Social Interaction FIM Score 5. Supervision (Needs supv. <10%. Needs encouragement to participate.) Memory FIM Score 5. Supervision (Needs cueing <10%, stressful/ unfamiliar situations.) Problem Solving FIM Score 5. Supervision (Needs cueing <10% to solve routine problems.) Transfers Mode of Locomotion: Wheelchair Bed/Chair/Wheelchair Transfers 5. Supervision (Needs supv. or set-up for FIM Score sliding board, foot rests.) Toilet Transfers FIM Score 4. Minimal Assistance (Patient = 75% or more. Needs touching.) Patient transferred to: Shower Shower Transfers FIM Score 4. Minimal Assistance (Patient = 75% or more. Needs touching.) Locomotion- Stairs Device used on Stairs Handrail/s Number of Stairs Ascended/ 12 Descended Patient used handrail/support: Yes Stairs FIM Score 5. Supervision (12-14 stairs w/ supv. 4-6 stairs independently.) Locomotion- walk/wheelchair Most Frequent Mode of Walking Locomotion: Ambulation Distance 170 Walking FIM Score 5. Supervision (Minimum 150 ft. supv./cues or 50 ft. independently.) Wheelchair Propulsion Distance 300 Wheelchair FIM Score 6. Modified [place] (Wheels a minimum of 150 ft.) Eating Eating FIM Score 5. Supervision/Set-Up (Needs help w/ containers, cutting meat, etc.) Dressing-Upper body Patient retrieves clothing No items: Patient applies/removes UE No prosthesis or orthosis: Upper Body Dressing FIM Score 6. Modified [place] (Needs equipment, velcro or pros./orth.) Dressing-lower body Patient retrieves clothing No items: Patient applies/removes LE Yes: knee immoblizer prosthesis or orthosis: Lower Body Dressing FIM Score 5. Supv./Set-Up (Moore sets out clothes or applies pros./orth.) - Labs CBC & Chem 7: 09/03/18 11:56 09/03/18 05:25 Labs: Laboratory Results - last 72 hr 09/02/18 09/02/18 09/02/18 12:11 16:42 21:39 WBC RBC Hgb Hct MCV MCH MCHC RDW Plt Count Sodium Potassium Chloride Carbon Dioxide Anion Gap BUN Creatinine Estimated GFR BUN/Creatinine Ratio Glucose POC Glucose 159 H 203 H 168 H Calcium 09/03/18 09/03/18 09/03/18 05:25 07:26 11:42 WBC RBC Hgb Hct MCV MCH MCHC RDW Plt Count Sodium 139 Potassium 3.9 Chloride 101.8 Carbon Dioxide 27 Anion Gap 14 BUN 11 Creatinine 0.5 L Estimated GFR > 60 BUN/Creatinine Ratio 22 Glucose 125 H POC Glucose 100 149 H Calcium 9.3 09/03/18 09/03/18 09/03/18 11:56 16:00 21:32 WBC 5.5 RBC 3.32 L Hgb 10.5 Hct 31.1 MCV 94 MCH 32 MCHC 34 RDW 17.1 H Plt Count 279 Sodium Potassium Chloride Carbon Dioxide Anion Gap BUN Creatinine Estimated GFR BUN/Creatinine Ratio Glucose POC Glucose 185 H 171 H Calcium 09/04/18 09/04/18 09/05/18 17:10 23:23 07:33 WBC RBC Hgb Hct MCV MCH MCHC RDW Plt Count Sodium Potassium Chloride Carbon Dioxide Anion Gap BUN Creatinine Estimated GFR BUN/Creatinine Ratio Glucose POC Glucose 230 H 267 H 183 H Calcium Assessment and Plan S72.91XS right femur fracture sequela: Weightbearing as tolerated, continue therapy as above, pain control, DVT prophylaxis. M25.511 R shoulder pain: XR, monitor pain. Possible further imaging if worsening pain. E11.9 diabetes: Continue medications and carb control diet. Adjust insulin as needed I10 Hypertension: Continue medications and monitor. Adjust as needed. R41.8 Anxiety with depression: Continue lexapro Z73.6 ADL dysfunction: OT will work on improving ability to perform ADLs (including assistive devices) to increase independence and decrease caregiver burden and improve functional transfers and mobility training. R26.2 Difficulty walking: PT will work on gait training and proper use of assistive devices and advance as appropriate to use of stairs and outside ambulation on uneven surfaces. R26.81 Unsteadiness on feet: PT will work on improving static and dynamic sitting and standing balance as well as proper use of assistive devices to dec rease risk of falls. R26.89 Abnormality of gait: PT will work to improve safety and efficiency of ga it through neuromotor training and gait training along with instruction on proper use of assistive devices. M62.81 Muscle weakness: PT & OT will work on strengthening exercises to improve functional strength including mixture of closed and open kinetic chain exercises. R53.81 Debility: PT & OT will work on improving overall functional status to improve participation with ADLs, mobility and social involvement. R53.83 Fatigue: PT & OT will work on improving endurance through aerobic exercises and therapeutic activity while monitoring patients tolerance for activity and vital signs as needed. E87.6 Hypokalemia: replace, recheck labs later in week. Mag was on lower side of normal, will replace that as well Internal medicine consult for HTN. DM management DVT ppx: lovenox, will look to switch to OAC before discharge Pain: Continue physical modalities in therapy and pain medications as needed to achieve functional pain control. Sleep: Monitor and address as needed. Bowel: Monitor and address as needed. Appetite: Monitor and address as needed. Discharge planning: Pending therapy progress and care plan meeting. Will continue discussion with therapy team, SW, patient and family. Restrictions/ Precautions: Falls, WBAT RLE WB status: FWB Functional Hx: ADLs: Independent Cognition: Independent Mobility: No AD Barriers to Discharge: Decreased mobility and ability to perform self care, balance deficits, weakness Estimated Length of Stay: 10-14 days Discharge Destination: Home alone
--- NOTE | 2018-09-05 15:41 | Progress Note ---
Assessment and Plan Assessment and plan: Patient is a 63 yo woman with a history of IDDM, HTN, Obesity, Anxiety, Depression admitted to IRU after hospitalization for Right ORIF. Consult placed by Dr. Abel for medical management of HTN, and DM. Hypertension. Continue Norvasc and hydrochlorothiazide. Monitor BP closely. Low salt diet Diabetes mellitus type 2, uncontrolled. BG slightly elevated. Increase SSI, Continue Lantus and Accu-Cheks. ADA diet Right femur fracture s/p Closed reduction and insertion of intramedullary nail right femur was done on 08/20/2018: per IRU physician R thigh blisters no evidence of infection, likely due to irritation from dressing, addressed prior to IRU stay Acute blood loss anemia- sp 1 unit prbc, expected outcome of surgery I will sign off, please page me with any questions History Interval history: Hospitalist [employer] for Hypertension and DM Patient was seen and examined. Follow-up on current diagnosis of hypertension and DM. No overnight events reported to me. Patient denies any chest pain, shortness breath, nausea/vomiting or severe headaches. Imaging, nursing note, chart, labs and old chart reviewed. Discussed with patient. Hospitalist Physical - Physical exam Narrative exam: Gen: WDWN, NAD, Awake, Alert, Orientated HEENT: NCAT, EOMI, PERRL, OP Clear Neck: supple, no adenopathy, no thyromegaly, no JVD CVS/Heart: RRR, normal S1S2, pulses present bilaterally Chest/Lungs: CTA B, Symmetrical chest expansion, good air entry bilaterally GI/Abdomen: soft, NTND, good bowel sounds, no guarding or rebound /Bladder: no suprapubic tenderness, no CVA or paraspinal tenderness Extermity/Skin: no c/c/e, no obvious rash MSK: FROM x 4 Neuro: CN 2-12 grossly intact, no new focal deficits Psych: calm - Constitutional Vitals: Temp Pulse Resp BP Pulse Ox 98.5 F 89 18 130/75 97 09/05/18 12:03 09/05/18 12:04 09/05/18 12:03 09/05/18 12:03 09/05/18 12:04 General appearance: Absent: obese Results - Labs CBC & Chem 7: 09/03/18 11:56 09/03/18 05:25 Labs: Laboratory Last Values WBC 5.5 K/mm3 (4.5-11.0) 09/03/18 11:56 RBC 3.32 M/mm3 (3.65-5.03) L 09/03/18 11:56 Hgb 10.5 gm/dl (10.1-14.3) 09/03/18 11:56 Hct 31.1 % (30.3-42.9) 09/03/18 11:56 MCV 94 fl (79-97) 09/03/18 11:56 MCH 32 pg (28-32) 09/03/18 11:56 MCHC 34 % (30-34) 09/03/18 11:56 RDW 17.1 % (13.2-15.2) H 09/03/18 11:56 Plt Count 279 K/mm3 (140-440) 09/03/18 11:56 Lymph % (Auto) 32.3 % (13.4-35.0) 08/28/18 04:09 [place] % (Auto) 12.9 % (0.0-7.3) H 08/28/18 04:09 Eos % (Auto) 4.9 % (0.0-4.3) H 08/28/18 04:09 Baso % (Auto) 0.6 % (0.0-1.8) 08/28/18 04:09 Lymph # 1.7 K/mm3 (1.2-5.4) 08/28/18 04:09 [place] # 0.7 K/mm3 (0.0-0.8) 08/28/18 04:09 Eos # 0.3 K/mm3 (0.0-0.4) 08/28/18 04:09 Baso # 0.0 K/mm3 (0.0-0.1) 08/28/18 04:09 Seg Neutrophils % 49.3 % (40.0-70.0) 08/28/18 04:09 Seg Neutrophils # 2.6 K/mm3 (1.8-7.7) 08/28/18 04:09 Sodium 139 mmol/L (137-145) 09/03/18 05:25 Potassium 3.9 mmol/L (3.6-5.0) 09/03/18 05:25 Chloride 101.8 mmol/L (98-107) 09/03/18 05:25 Carbon Dioxide 27 mmol/L (22-30) 09/03/18 05:25 14 mmol/L 09/03/18 05:25 BUN 11 mg/dL (7-17) 09/03/18 05:25 0.5 mg/dL (0.7-1.2) L 09/03/18 05:25 Estimated GFR > 60 ml/min 09/03/18 05:25 22 % 09/03/18 05:25 Glucose 125 mg/dL (65-100) H 09/03/18 05:25 POC Glucose 199 (70-105) H 09/05/18 12:23 Calcium 9.3 mg/dL (8.4-10.2) 09/03/18 05:25 Magnesium 1.70 mg/dL (1.7-2.3) 08/28/18 04:09 1.10 mg/dL (0.1-1.2) 08/28/18 04:09 AST 15 units/L (5-40) 08/28/18 04:09 ALT 12 units/L (7-56) 08/28/18 04:09 50 units/L (35-129) 08/28/18 04:09 6.8 g/dL (6.3-8.2) 08/28/18 04:09 3.5 g/dL (3.9-5) L 08/28/18 04:09 1.1 % 08/28/18 04:09 Active Medications - Current Medications Current Medications: Generic Name Dose Route Start Last Admin Trade Name Freq PRN Reason Stop Dose Admin Acetaminophen 500 mg 08/27/18 11:40 Tylenol PO Q6H PRN Pain, Mild (1-3) Acetaminophen/Hydrocodone Bitart 1 each 08/31/18 09:30 09/05/18 08:34 [place] 10/325 PO 1 each Q4H PRN Administration Pain , Severe (7-10) Amlodipine Besylate 10 mg 08/28/18 08:00 09/05/18 08:18 Norvasc PO 10 mg QDAY JOANIE Administration Apixaban 2.5 mg 09/05/18 22:00 Eliquis PO 09/20/18 21:59 Q12HR JOANIE Protocol Bisacodyl 10 mg 08/27/18 11:40 Dulcolax SD QDAY PRN Constipation Dextrose 50 ml 08/27/18 11:28 D50w (25gm) Syringe IV PRN PRN Hypoglycemia Docusate Sodium 100 mg 08/27/18 22:00 09/05/18 08:18 Colace PO 100 mg BID JOANIE Administration Escitalopram Oxalate 10 mg 08/28/18 08:00 09/05/18 08:17 Lexapro PO 10 mg QDAY JOANIE Administration Hydrochlorothiazide 25 mg 08/28/18 08:00 09/05/18 08:17 Hctz PO 25 mg QDAY JOANIE Administration Insulin Glargine 15 units 08/31/18 12:17 09/04/18 23:09 Lantus SUB-Q 15 units QHS JOANIE Administration Insulin Human Lispro 0 unit 08/27/18 16:30 09/05/18 08:16 Humalog SUB-Q 1 unit ACHS JOANIE Administration Protocol Polyethylene Glycol 17 gm 08/27/18 11:40 Miralax 3350 PO QDAY PRN Constipation Nutrition/Malnutrition Assess - Dietary Evaluation Nutrition/Malnutrition Findings: Nutrition Notes Start: 08/28/18 09:02 Freq: Status: Active Protocol: Document 09/03/18 16:51 RM (Rec: 09/03/18 16:51 RM [id number]) Nutrition Notes Need for Assessment generated from: LOS Initial or Follow up Brief Note Height 5 ft 4 in Weight 79.3 kg [place] Body Weight (kg) 54.54 BMI 29.9 Subjective/Other Information Screened for LOS. PO intake 82% X 1 week Nutrition Intervention Revisit per MD consult or patient Sign Off request:
[2018-09-05] MEDS: ELIQUIS PO SCH (21:15)
[2018-09-05] MEDS: LANTUS SUB-Q SCH (21:26)
[2018-09-06] MEDS: NORCO 10/325 PO PRN ×5 (02:54→21:34)
[2018-09-06] MEDS: HumaLOG SUB-Q SCH ×4 (08:00→21:35)
[2018-09-06] MEDS: COLACE PO SCH ×2 (08:26→21:34)
[2018-09-06] MEDS: NORVASC PO SCH (08:26)
[2018-09-06] MEDS: HCTZ PO SCH (08:26)
[2018-09-06] MEDS: ELIQUIS PO SCH ×3 (08:26→21:34)
[2018-09-06] MEDS: LEXAPRO PO SCH (08:26)
[2018-09-06] MEDS: LANTUS SUB-Q SCH (21:34)
[2018-09-07] MEDS: NORCO 10/325 PO PRN ×5 (01:57→21:26)
[2018-09-07] MEDS: HumaLOG SUB-Q SCH ×4 (07:46→23:23)
[2018-09-07] MEDS: NORVASC PO SCH (08:17)
[2018-09-07] MEDS: COLACE PO SCH ×2 (08:17→21:26)
[2018-09-07] MEDS: LEXAPRO PO SCH (08:17)
[2018-09-07] MEDS: HCTZ PO SCH (08:17)
[2018-09-07] MEDS: ELIQUIS PO SCH ×3 (08:18→21:26)
[2018-09-07] MEDS: LANTUS SUB-Q SCH (23:24)
[2018-09-08] MEDS: NORCO 10/325 PO PRN ×4 (01:57→15:20)
[2018-09-08] MEDS: HumaLOG SUB-Q SCH ×2 (07:36→12:30)
[2018-09-08] MEDS: LEXAPRO PO SCH (07:37)
[2018-09-08] MEDS: NORVASC PO SCH (07:37)
[2018-09-08] MEDS: COLACE PO SCH (07:37)
[2018-09-08] MEDS: HCTZ PO SCH (07:37)
--- NOTE | 2018-09-08 08:26 | Discharge Summary ---
Providers - Providers Date of Admission: 08/27/18 12:57 Date of discharge: 09/08/18 Attending physician: ROULA MCGEE III, MD 08/27/18 11:28 Occupational Therapy Evaluate and Treat [CONS] Routine Comment: Reason For Exam: ADL dysfunction Physical Therapy Evaluation and Treat [CONS] Routine Comment: Reason For Exam: Mobility Dysfunction Weight bearing status?: Full wt bearing Assistive devices?: No: DC knee immobilizer when up 08/27/18 11:34 Consult to Case Management [CONS] Routine Services Needed at Discharge: Home Health Services Notified:: PLAN CONSULTANT 08/29/18 12:40 Consult to Physician [CONS] Routine Comment: Consulting Provider: LEXI HORAN Physician Instructions: Reason For Exam: Medical Management - HTN, DM Primary care physician: ASHLEY CANTU Hospitalization Reason for admission: Right femur fracture Condition: Good Pertinent studies: Right shoulder x-ray 3 view dated 08/27/2018 Normal examination, no evidence of fracture or dislocation Hospital course: 63-year-old female presented to the ED after a slip and fall with increased pain on the right lower extremity. She was evaluated and found to have a right mid shaft femur fracture. She was scheduled for surgery and underwent surgical repair on August [address] Concepcion and placed a intramedullary nail. She has a history of hypertension and diabetes which are poorly controlled due to decreased compliance. Also states that she has anxiety for which she just recently started getting medications within the past 3 months but she cannot remember the name of the medication, review of [place] PDMP does not show any benzodiazepines. We'll attempt to look further into what medications were prescribed for her anxiety and restart those if possible. Currently states that her right shoulder is also hurting and may have been injured in the original fall. There is some confusion with ordering of a shoulder x-ray, we do not see any orders anywhere from the acute side however due to her complaints are placed in order now. After the patient was medically stabilized they were transferred for further rehabilitation. All available medical records have been reviewed. Plan of care was discussed with patient. We had a little difficulty controlling the patient's pain in her right lower extremity however with a small increase pain medication this was better controlled. She improved and progressed fairly well during her stay and is able to walk approximately 200 feet with a rolling walker at supervision/mod I. she is also able to utilize stairs with handrails. Knee immobilizer was discontinued by Dr. Concepcion. [place] been removed from the surgical sites. Those areas appear to be clean dry and intact with no evidence of bleeding or infection. During her stay we have discussed numerous times the need to wean down her pain medications by both breaking the tablets in half as well as spacing out the time of taking the tablets. Explained to her that further use of pain medications will not necessarily improve her pain but will just make her more dependent on them. We'll send her home with a short term supply of pain medications. She has been on Lovenox for the majority of her time since surgery on August 20 and was transitioned to Eliquis and we will send her home with a supply of this as well to take her through September 20. Had a conversation with her on several occasions about risk of DVT after her fracture and the signs and symptoms to look for in order to go to the ER for immediate evaluation. She is mobile however not as active as she could be or should be at the moment. The risk of continuing anticoagulation for another 10 days until she improves her mobility is outweighed by the benefit of reducing the risk of a DVT. Also encouraged her to continue improving the mobility of the right lower extremity. She does not have full flexion at the knee as of yet and could improve this with further stretching and strengthening. She will have therapy going forward and encourage her to take full advantage of that. She does have a rolling walker and a bedside commode and been delivered to her room prior to discharge. She is follow-up with her primary care physician as well as her surgeon, Dr. Concepcion. Disposition: DC/TX- HOME UNDER HOME [facility] Time spent for discharge: >30mins Core Measure Documentation - Palliative Care Palliative Care/ Comfort Measures: Not Applicable - Core Measures Any of the following diagnoses?: none Exam - Physical Exam Narrative exam: MUSCULOSKELETAL SPECIALTY EXAM CONSTITUTIONAL: Well developed, well nourished, appropriately groomed obese female EENT: Hearing intact to soft voice RESPIRATORY: Clear to auscultation bilaterally, no increased work of breathing CARDIOVASCULAR: Regular Rate/ Rhythm, no swelling, edema or tenderness in BUE or BLE. All extremities warm. GI: + bowel sounds, soft, NTTP, nondistended. INTEGUMENTARY: Normal, no lesion, rash, masses or bruising noted in extremities. Right lower extremity blisters have healed and julissa are removed with no signs of bleeding or infection MUSCULOSKELETAL: BUE and BLE normal without defect, crepitus, subluxation, effusion, arthritic changes or TTP except Right lower extremity has surgical wound, right shoulder has mild tenderness to palpation. LUE 4+/5, good ROM, with normal tone. RUE has decreased strength and ROM due to pain at shoulder (improved), normal tone. LLE 4+/5 good ROM, with normal tone. RLE has decreased strength and ROM due to pain but has improved, normal tone. NEURO: CN 2-12 grossly intact. Sensation intact in all extremities. No tremor noted in 4 extremities. POSTURE and GAIT: Sitting posture good. Balance and Gait are slow but improving. PSYCH: Alert, orientated x3, affect normal. Insight appears intact. - Constitutional Vitals: Temp Pulse Resp BP Pulse Ox 36.9 C 72 20 129/79 98 09/08/18 05:14 09/08/18 05:14 09/08/18 05:14 09/08/18 07:37 09/08/18 05:14 - Allied Health Allied health notes reviewed: nursing, PT, OT Plan Activity: advance as tolerated, fall precautions Weight Bearing Status: Weight Bear as Tolerated Diet: diabetic Wound: open to air Special Instructions: record daily BP diary, record blood sugar diary, physical therapy, occupational therapy, home health RN Durable Medical Equipment Needed Upon Discharge: Walker-Rolling, Bedside Commode Follow up with: ASHLEY CANTU MD [Primary Care Provider] - 7 Days Prescriptions: Insulin Glargine [Lantus VIAL] 15 units SUB-Q QHS 30 Days units Docusate Sodium [Colace CAP] 100 mg PO BID #30 capsule Apixaban [Eliquis] 2.5 mg PO Q12HR 12 Days #24 tablet hydroCHLOROthiazide [HCTZ] 25 mg PO QDAY #30 tablet Lispro Insulin [HumaLOG] 0 unit SUB-Q ACHS 30 Days units Escitalopram [Lexapro] 10 mg PO QDAY #30 tablet Polyethylene Glycol 3350 [Miralax 3350] 17 gm PO QDAY PRN 30 Days powd.pack PRN Reason: Constipation amLODIPine [Norvasc] 10 mg PO QDAY #30 tablet oxyCODONE /ACETAMINOPHEN [Percocet 5/325 mg] 1 tab PO Q4H PRN #24 tablet PRN Reason: Pain, Moderate (4-6)
[2018-09-08] MEDS: ELIQUIS PO SCH (11:00)
[2018-09-08 13:02] VITALS: BP 125/69
== END 2018-09-08 16:30 | disposition home health service (06) | DRG 534 ==
LOC: 3A 10:48 → UNDOADMIN 10:48 → 3B-SURG 12:57 → 3B 20:28
PROVIDERS: ADMIT Physical Medicine & Rehabilitation; ATTEND Physical Medicine & Rehabilitation
DX: S72.301A Unspecified fracture of shaft of right femur, initial encounter for closed fracture (principal); I10 Essential (primary) hypertension; E11.9 Type 2 diabetes mellitus without complications; F41.9 Anxiety disorder, unspecified; F32.9 Major depressive disorder, single episode, unspecified; Z60.2 Problems related to living alone; E66.9 Obesity, unspecified; E87.6 Hypokalemia; R53.81 Other malaise; Z83.3 Family history of diabetes mellitus; Z82.49 Family history of ischemic heart disease and other diseases of the circulatory system; Z80.9 Family history of malignant neoplasm, unspecified; Z90.710 Acquired absence of both cervix and uterus; Z91.040 Latex allergy status; Z68.30 Body mass index [BMI] 30.0-30.9, adult
CPT/HCPCS: 36415; 80048; 80053; 82962; 83735; 85025; 85027; G0378; J1650; J1815; J2270

== ENCOUNTER 2019-02-04 10:21 | Outpatient (CLI) | payer MEDICARE ==
--- NOTE | 2019-02-04 15:40 | Vascular Lab Report ---
DUPLEX DOPPLER LOWER EXTREMITY VEINS, BILATERAL INDICATION: R60.0) LOCALIZIED EDEMA. TECHNIQUE: Duplex doppler imaging was performed through the veins of both lower extremities using ve nous compression and other maneuvers. COMPARISON: No relevant prior imaging study available. FINDINGS: Right Common femoral vein: Negative. Right Superficial femoral vein: Negative. Right Popliteal vein: Negative. Right Calf veins: Negative. Left Common femoral vein: Negative. Left Superficial femoral vein: Negative. Left Popliteal vein: Negative. Left Calf veins: Negative. Additional findings: None.. IMPRESSION: No sonographic evidence for DVT in either lower extremity. Signer Name: Gregorio Ledbetter Jr, MD Signed: 02/04/2019 3:36 PM Workstation Name: [id number]
== END 2019-02-04 10:22 | disposition home or self-care (01) ==
LOC: VAS 10:21
PROVIDERS: ATTEND Internal Medicine
DX: R60.0 Localized edema (principal); I10 Essential (primary) hypertension; E11.9 Type 2 diabetes mellitus without complications; Z90.710 Acquired absence of both cervix and uterus; Z91.81 History of falling
CPT/HCPCS: 93970

== ENCOUNTER 2019-02-17 10:50 | Outpatient (CLI) | payer MEDICARE ==
--- NOTE | 2019-02-18 13:37 | Mammography Report ---
DIGITAL SCREENING MAMMOGRAM WITH CAD, 02/17/2019 INDICATION: Routine screening mammography. TECHNIQUE: Digital bilateral 2D mammography was obtained in the craniocaudal and mediolateral obliq ue projections. This examination was interpreted with the benefit of Computer-Aided Detection analysi s. COMPARISON: 01/13/2015 FINDINGS: Breast Density: The breasts are heterogeneously dense, which may obscure small masses. There is no evidence of dominant mass, suspicious calcifications or architectural distortion in eithe r breast. IMPRESSION: No mammographic evidence of malignancy. Follow up recommendation: Routine yearly BI-RADS Category 1: Negative. A "normal" or negative report should not discourage follow up or biopsy of a clinically significant f inding. A written summary of these findings will be mailed to the patient. The patient will be entered into a mammography reporting system which will generate a reminder letter for the patient's next appointmen t at the appropriate interval. The [employer] recommends yearly mammograms starting at age 40 and continuing as l nallely as a woman is in good health. Breast MRI is recommended for women with an approximate 20-25% or greater lifetime risk of breast cancer, including women with a strong family history of breast or ova alejandro cancer or who have been treated for Hodgkin's disease. Signer Name: Lonnie Mcnulty MD Signed: 02/18/2019 1:32 PM Workstation Name: [id number]
== END 2019-02-17 10:51 | disposition home or self-care (01) ==
LOC: MAMMO 10:50
PROVIDERS: ATTEND Internal Medicine
DX: Z12.31 Encounter for screening mammogram for malignant neoplasm of breast (principal); I10 Essential (primary) hypertension; Z90.710 Acquired absence of both cervix and uterus; E11.9 Type 2 diabetes mellitus without complications; F41.9 Anxiety disorder, unspecified; F32.9 Major depressive disorder, single episode, unspecified; F17.200 Nicotine dependence, unspecified, uncomplicated
CPT/HCPCS: 77067

== ENCOUNTER 2020-07-24 10:07 | Emergency (ER) | payer MEDICARE ==
[2020-07-24 10:48] VITALS: BP 130/82
--- NOTE | 2020-07-24 10:50 | Emergency Department Report ---
ED Extremity Problem HPI - General Chief complaint: Extremity Injury, Lower Stated complaint: L KNEE INJURY Time Seen by Provider: 07/24/20 10:44 Source: patient Mode of arrival: Ambulatory Limitations: Physical Limitation - History of Present Illness Initial comments: This is a pleasant 65-year-old female presents the emergency department chief complaint left knee pain. Patient reports 2 weeks ago she was walking her dog when she tripped and fell forward on her left knee. She has been having pain since. Pain is aggravated by movement and weightbearing. She rates the severity of pain is a 9 out of 10 described as dull and throbbing. She denies any additional injuries. Denies any other head or losing consciousness. She denies any associated fever, chills, night sweats, headache, dizziness, blurry vision, nausea,, diarrhea, chest pain, shortness of breath, weakness or any other associated symptoms. MD Complaint: extremity pain - Related Data Previous Rx's Medication Instructions Recorded Last Taken Type Apixaban [Eliquis] 2.5 mg PO Q12HR 12 Days #24 tablet 09/08/18 Unknown Rx Docusate Sodium [Colace CAP] 100 mg PO BID #30 capsule 09/08/18 Unknown Rx Escitalopram [Lexapro] 10 mg PO QDAY #30 tablet 09/08/18 Unknown Rx Insulin Glargine [Lantus VIAL] 15 units SUB-Q QHS 30 Days units 09/08/18 Unknown Rx Lispro Insulin [HumaLOG] 0 unit SUB-Q ACHS 30 Days units 09/08/18 Unknown Rx amLODIPine 10 mg PO QDAY #30 tablet 09/08/18 Unknown Rx hydroCHLOROthiazide [HCTZ] 25 mg PO QDAY #30 tablet 09/08/18 Unknown Rx oxyCODONE /ACETAMINOPHEN [Percocet 1 tab PO Q4H PRN #24 tablet 09/08/18 Unknown Rx 5/325 mg] polyethylene glycoL 3350 [Miralax 17 gm PO QDAY PRN 30 Days 09/08/18 Unknown Rx 3350] powd.pack Naproxen [Naprosyn TAB] 500 mg PO BID #20 tablet 07/24/20 Unknown Rx Allergies Allergy/AdvReac Type Severity Reaction Status Date / Time latex Allergy Rash Verified 04/25/13 13:59 ED Review of Systems ROS: Stated complaint: L KNEE INJURY Other details as noted in HPI Comment: All other systems reviewed and negative Constitutional: denies: chills, fever Eyes: denies: eye pain, eye discharge, vision change ENT: denies: ear pain, throat pain Respiratory: denies: cough, shortness of breath, wheezing Cardiovascular: denies: chest pain, palpitations Endocrine: no symptoms reported Gastrointestinal: denies: abdominal pain, nausea, diarrhea Genitourinary: denies: urgency, dysuria, discharge Musculoskeletal: denies: back pain, joint swelling, arthralgia Skin: denies: rash, lesions Neurological: denies: headache, weakness, paresthesias Psychiatric: denies: anxiety, depression Hematological/Lymphatic: denies: easy bleeding, easy bruising ED Past Medical Hx - Past Medical History Previous Medical History?: Yes Hx Hypertension: Yes Hx Congestive Heart Failure: No Hx Diabetes: Yes Hx Psychiatric Treatment: Yes (Anxiety, OCD, depression) Hx Asthma: No Hx COPD: No Additional medical history: Noncompliant with hypertension and diabetic meds, Enlarged Liver - Surgical History Past Surgical History?: Yes Additional Surgical History: Tubal ligation. partial hysterectomy, microscopic surg to both knees - Social History Smoking Status: Current Some Day Smoker - Medications Home Medications: Home Medications Medication Instructions Recorded Confirmed Last Taken Type Apixaban [Eliquis] 2.5 mg PO Q12HR 12 Days #24 tablet 09/08/18 Unknown Rx Docusate Sodium [Colace CAP] 100 mg PO BID #30 capsule 09/08/18 Unknown Rx Escitalopram [Lexapro] 10 mg PO QDAY #30 tablet 09/08/18 Unknown Rx Insulin Glargine [Lantus VIAL] 15 units SUB-Q QHS 30 Days units 09/08/18 Unknown Rx Lispro Insulin [HumaLOG] 0 unit SUB-Q ACHS 30 Days units 09/08/18 Unknown Rx amLODIPine 10 mg PO QDAY #30 tablet 09/08/18 Unknown Rx hydroCHLOROthiazide [HCTZ] 25 mg PO QDAY #30 tablet 09/08/18 Unknown Rx oxyCODONE /ACETAMINOPHEN [Percocet 1 tab PO Q4H PRN #24 tablet 09/08/18 Unknown Rx 5/325 mg] polyethylene glycoL 3350 [Miralax 17 gm PO QDAY PRN 30 Days 09/08/18 Unknown Rx 3350] powd.pack Naproxen [Naprosyn TAB] 500 mg PO BID #20 tablet 04/10/21 Unknown Rx ED Physical Exam - General Limitations: Physical Limitation General appearance: alert, in no apparent distress - Head Head exam: Present: atraumatic, normocephalic - Eye Eye exam: Present: normal appearance, PERRL, EOMI Pupils: Present: normal accommodation - ENT ENT exam: Present: normal exam, normal orophraynx, mucous membranes moist - Neck Neck exam: Present: normal inspection, full ROM. Absent: tenderness, meningismus - Respiratory Respiratory exam: Present: normal lung sounds bilaterally. Absent: respiratory distress, wheezes, rales, rhonchi, stridor - Cardiovascular Cardiovascular Exam: Present: regular rate, normal rhythm, normal heart sounds. Absent: systolic murmur, diastolic murmur, rubs, gallop - GI/Abdominal GI/Abdominal exam: Present: soft, normal bowel sounds. Absent: distended, tenderness, guarding, rebound, rigid - Extremities Exam Extremities exam: Present: normal inspection, full ROM, tenderness (TTP to anterior left knee, negative anterior drawer sign, negative varus/valgus strain. posterior calf tenderness. normal DP/PT pulses). Absent: calf tenderness - Back Exam Back exam: Present: normal inspection, full ROM. Absent: tenderness, CVA tenderness (R), CVA tenderness (L) - Neurological Exam Neurological exam: Present: alert, oriented X3, normal gait - Psychiatric Psychiatric exam: Present: normal affect, normal mood - Skin Skin exam: Present: warm, dry, intact, normal color. Absent: rash ED Course Vital Signs 07/24/20 10:44 Temperature 99.5 F Pulse Rate 112 H Respiratory 22 Rate Blood Pressure 130/82 O2 Sat by Pulse 98 Oximetry ED Medical Decision Making - Radiology Data Radiology results: report reviewed Loc: ED Attending Dr: Ordering Physician: JOSEPHINE GOODWIN Date of Service: 07/24/20 Procedure(s): XR knee 4+V LT Accession Number(s): [id number] cc: JOSEPHINE GOODWIN Fluoro Time In Minutes: RIGHT KNEE 4 VIEWS 1103 INDICATION: pain, fall COMPARISON: None available. FINDINGS: Prominent tricompartment degenerative changes are noted. Minimal joint effusion is seen. Joint space narrowing is seen in both medial and lateral compartments and there is chronic appearing mild subluxation of the femur medially on the tibia. Mild chondrocalcinosis is noted. No fractures or dislocations are seen. Signer Name: Alfonso Mak MD Signed: 07/24/2020 12:05 PM Workstation Name: [id number] Transcribed By: DAQUAN Dictated By: Alfonso Mak MD Electronically Authenticated By: Alfonso Mak MD Signed Date/Time: 07/24/20 1205 - Medical Decision Making X-ray is negative. Patient had no posterior calf tenderness and normal DP PT pulses. Her x-ray did show tricompartmental degenerative changes which I think is likely source of her symptoms. Recommend orthopedics follow-up, rest, ice, compression, elevation. Recommend a very short course of anti-inflammatories. Wells criteria low risk for DVT. Patient was agreeable this plan. All of her questions were answered. She verbalized understanding the diagnosis, treatment plan and follow-up instructions. - Differential Diagnosis strain, sprain, fracture Critical care attestation.: If time is entered above; I have spent that time in minutes in the direct care of this critically ill patient, excluding procedure time. ED Disposition Clinical Impression: Left knee sprain Qualifiers: Encounter type: initial encounter Involved ligament of knee: unspecified ligament Qualified Code(s): S83.92XA - Sprain of unspecified site of left knee, initial encounter Disposition: TO HOME OR SELFCARE Is pt being admited?: No Condition: Stable Instructions: Knee Sprain, Adult, [id number] Prescriptions: Naproxen [Naprosyn TAB] 500 mg PO BID #20 tablet Referrals: JUYL TENA MD [Staff Physician] - 3-5 Days Time of Disposition: 12:20
--- NOTE | 2020-07-24 12:09 | XRay Report ---
RIGHT KNEE 4 VIEWS 1103 INDICATION: pain, fall COMPARISON: None available. FINDINGS: Prominent tricompartment degenerative changes are noted. Minimal joint effusion is seen. Johanna int space narrowing is seen in both medial and lateral compartments and there is chronic appearing mi ld subluxation of the femur medially on the tibia. Mild chondrocalcinosis is noted. No fractures or dislocations are seen. Signer Name: Alfonso Mak MD Signed: 07/24/2020 12:05 PM Workstation Name: [id number]
== END 2020-07-24 12:53 | disposition home or self-care (01) ==
LOC: ED 10:07
DX: S83.92XA Sprain of unspecified site of left knee, initial encounter (principal); I10 Essential (primary) hypertension; E11.9 Type 2 diabetes mellitus without complications; F41.9 Anxiety disorder, unspecified; F17.200 Nicotine dependence, unspecified, uncomplicated; Z98.890 Other specified postprocedural states; Z98.51 Tubal ligation status; Z79.4 Long term (current) use of insulin; Z79.899 Other long term (current) drug therapy; Z91.040 Latex allergy status; W01.0XXA Fall on same level from slipping, tripping and stumbling without subsequent striking against object, initial encounter; Y93.89 Activity, other specified; Y92.89 Other specified places as the place of occurrence of the external cause; Y99.8 Other external cause status

== ENCOUNTER 2020-09-03 13:52 | Outpatient (CLI) | payer MEDICARE ==
--- NOTE | 2020-09-03 15:36 | XRay Report ---
RIGHT FEMUR 2 VIEWS INDICATION: UNSPECIFIED FRACTURE OF LOWER END OF RIGHT FEMUR. COMPARISON: 08/20/2018 IMPRESSION: The internally fixated mid right femur fracture is in good alignment. The surgical hardw are is unremarkable. No acute osseous abnormality is detected. Severe tricompartmental degenerative changes are noted at the right knee. Mild degenerative changes at the right. The soft tissues are unr emarkable. Signer Name: Gregorio Ledbetter Jr, MD Signed: 09/03/2020 3:31 PM Workstation Name: [id number]
== END 2020-09-03 13:53 | disposition home or self-care (01) ==
LOC: XRAY 13:52
PROVIDERS: ATTEND Orthopaedic Surgery
DX: S72.401D Unspecified fracture of lower end of right femur, subsequent encounter for closed fracture with routine healing (principal); M17.11 Unilateral primary osteoarthritis, right knee; M16.11 Unilateral primary osteoarthritis, right hip; X58.XXXD Exposure to other specified factors, subsequent encounter

== ENCOUNTER 2020-10-21 07:36 | Inpatient (IN) | payer MEDICARE ==
--- NOTE | 2020-10-14 10:30 | Anesthesia Consultation ---
Anesthesia Consult and Med Hx Date of service: 10/21/20 - Airway Anesthetic Teeth Evaluation: Chipped, Dentures (Lower), Partials (Upper), Edentulous (Lower) ROM Head & Neck: Adequate Mental/Hyoid Distance: Adequate Mallampati Class: Class II Intubation Access Assessment: Good - Pre-Operative Health Status ASA Pre-Surgery Classification: ASA3 Proposed Anesthetic Plan: Spinal (GA if needed) Nerve Block: AC - Pulmonary Hx Smoking: Yes (2-4 CIGARETTES PER DAY) Hx Asthma: No COPD: No Hx Pneumonia: No Hx Sleep Apnea: No (SUMMER PRE SCREEN HIGH RISK) - Cardiovascular System Hx Hypertension: Yes (X 20 YRS) - Central Nervous System Hx Back Pain: Yes Hx Psychiatric Problems: Yes (Anxiety/Depression/OCD) - Endocrine Hx Non-Insulin Dependent Diabetes: Yes - Hematic Hx Anemia: Yes (NOT RECENT) Hx Sickle Cell Disease: No - Other Systems Hx Cancer: No - Additional Comments Anesthesia Medical History Comments: Saw [employer] [employer] [facility] [employer] because of legs swelling; no records at this time
[2020-10-14 10:59] LABS: BUN/Creatinine Ratio 33; Blood Urea Nitrogen 26 mg/dL (7-17); Calcium 9.9 mg/dL (8.4-10.2); Hemolysis Index 2
[2020-10-14 11:52] LABS: Hematocrit 36.2 % (30.3-42.9); Hemoglobin 12.5 gm/dl (10.1-14.3); Mean Corpuscular HGB Conc 35 % (30-34); Mean Corpuscular Volume 96 fl (79-97); Platelet Count 153 K/mm3 (140-440); Red Blood Count 3.77 M/mm3 (3.65-5.03); Red Cell Distribution Width 14.6 % (13.2-15.2)
[~2020-10-21 07:36] MED LIST: ACETAMINOPHEN 325 MG TAB PO NR; CELECOXIB 200 MG CAP PO NR; MAGNESIUM OXIDE 400 MG TAB PO NR; MIDAZOLAM 2 MG/2 ML INJ IV NR; ceFAZolin/STERILE WATER 2 GM/20 ML SYRINGE IV NR; fentaNYL 100 MCG/2 ML INJ IV NR
[2020-10-21] MEDS ORDERED: BUPIVACAINE-EPINEPHRINE/PF 0.25%-1:200,000 (30 ML) VIAL INFILTRATI ONE (07:50)
[2020-10-21] MEDS ORDERED: dexAMETHasone 4 MG/ML VIAL ONE (07:50)
[2020-10-21] MEDS ORDERED: TRANEXAMIC ACID 1,000 MG/10 ML ONE (08:41)
[2020-10-21] MEDS ORDERED: SODIUM CHLORIDE 0.9% 100 ML ONE ×2 (08:42→12:01)
[2020-10-21] MEDS ORDERED: HYDROmorphone 1 MG/1 ML INJ IV PRN (09:27)
[2020-10-21] MEDS ORDERED: ONDANSETRON 4 MG/2 ML INJ IV PRN (09:27)
--- NOTE | 2020-10-21 09:27 | Anesthesia Day of Surgery ---
Anesthesia Day of Surgery - Day of Surgery Patient Examined: Yes Patient H&P Reviewed: Yes Patient is NPO: Yes
[2020-10-21] MEDS ORDERED: fentaNYL 100 MCG/2 ML INJ ONE (09:37)
[2020-10-21] MEDS ORDERED: dexAMETHasone 20 MG/5 ML VIAL ONE (09:37)
[2020-10-21] MEDS ORDERED: propofoL 200 MG/20 ML VIAL IV ONE (09:38)
[2020-10-21] MEDS ORDERED: SODIUM CHLORIDE 0.9% IRR 1,500 ML BOTTLE IR ONE (11:32)
[2020-10-21] MEDS ORDERED: SODIUM CHLORIDE 0.9% IRRIG SOLN 2000 ML IR ONE (11:32)
[2020-10-21] MEDS ORDERED: SODIUM CHLORIDE 0.9% 50 ML ONE (12:00)
[2020-10-21] MEDS ORDERED: KETOROLAC 30 MG/1 ML INJ ONE (12:00)
[2020-10-21] MEDS ORDERED: BUPIVACAINE/PF (0.5%) 5 MG/1 ML 30 ML VIAL INFILTRATI ONE ×2 (12:00→12:24)
[2020-10-21] MEDS ORDERED: MORPHINE 10 MG/1 ML INJ ONE (12:09)
[2020-10-21] MEDS ORDERED: SODIUM CHLORIDE 0.9% 100 ML IVPB IV ONE (12:23)
[2020-10-21] MEDS ORDERED: KETOROLAC 30 MG/1 ML INJ IV ONE (12:24)
[2020-10-21] MEDS ORDERED: MORPHINE 10 MG/1 ML INJ IM ONE (12:24)
--- NOTE | 2020-10-21 13:13 | Procedure Note ---
Date of procedure: 10/21/20 Pre-op diagnosis: severe arthritis left knee Post-op diagnosis: same Procedure: Left total knee replacement Procedure The patient was brought to the OR and placed on the OR table in supine position following induction with general anesthesia the patient is left lower extremity was prepped and draped in the usual sterile manner. A timeout procedure was done to identify the patient in the correct operative site. The leg was exsanguinated followed by inflation of the pneumatic tourniquet to 300 mmHg. A midline incision was made over the patella was taken down distally towards the tibial tubercle next the medial retinaculum was incised and the patella was inverted examination of the patient's knee joint revealed typical osteoarthritic changes with large bone spurs noted primarily in the medial compartment both the femoral and tibial's articular surfaces exhibited bare bone and large peripheral osteophytes next a large drill bit was used to enter the medullary canal this was followed by placement of the distal femoral cutting Jig the distal femur was resected approximately 11 mm of bone was removed at this time. Attention was turned to the patient's proximal tibia using a external alignme guide the bone was cut using the medial surface as the low point of care was taken to protect the medial collateral ligaments the tibial articular surface was 7-sized A3 a #4 tibial based ray was selected this was followed by placement of the fixation hole or keel into the proximal tibial artery medullary canal. Attention was turned to the distal femur and using a 4 and 1 cutting block a #4 component was selected AP anterior and posterior as well as Barber cuts were made a #4 tibial ostomy femoral component was placed and the knee was then taken to a range of motion she appeared to have stability in both the flexion and extension FOLLOWING this the trial components were removed the knee was then copiously irrigated any remaining soft tissue and bony debris were removed at this time next the cement was next and following this the tibial components were inserted beginning with the based ray followed by the polyethylene insert The femoral component was added the excess were removed the knee was held in extension until the cement hardened following hardening of cement the knee was then brought back into of flexion any remaining soft tissue and bony debris were removed at this time. The wound again was irrigated and was closed in a standard routine fashion. Dressings were applied the patient tolerated the procedure there were no complications she was then taken to post anesthesia recovery Anesthesia: GETA Surgeon: JULY TENA (Fareed Valdez M.D. 1st assist) Estimated blood loss: 50-100ml Pathology: list (Portions of tibial and femoral bone and cartilage) Specimen disposition: to lab Condition: stable Disposition: PACU
--- NOTE | 2020-10-21 15:41 | XRay Report ---
LEFT KNEE 2 VIEWS INDICATION / CLINICAL INFORMATION: post op COMPARISON: None available. FINDINGS: BONES / JOINT(S): Placement of left knee prosthesis. Satisfactory alignment without immediate complic ation. SOFT TISSUES: Expected postsurgical change. ADDITIONAL FINDINGS: None. Signer Name: Vasiliy Salinas MD Signed: 10/21/2020 3:36 PM Workstation Name: [email or web address]
--- NOTE | 2020-10-21 15:50 | Post Anesthesia Evaluation ---
- Post Anesthesia Evaluation Patient Participated: Yes Airway Patent: Yes Stable Respiratory Function: Yes Nausea/Vomiting: No Temp > 96.8F: Yes Pain Manageable: Yes Adequeate Hydration: Yes Anesthesia Complications: No Block Receding Appropriately: Not Applicable (adequate analgesia w/ block placed preop)
[2020-10-21] MEDS: oxyCODONE /ACETAMINOPHEN 5-325MG TAB PO PRN (22:36)
[2020-10-21] MEDS: KETOROLAC 30 MG/1 ML INJ IV PRN (23:10)
[2020-10-22] MEDS: MORPHINE 4 MG/1 ML INJ IV PRN ×3 (05:37→16:16)
[2020-10-22] MEDS: LACTATED RINGERS 1,000 ML IV SCH (05:39)
--- OUTSIDE RECORDS SUMMARY | 2020-10-22 07:40 | External Medical Summary ---
:1955 Author Organization [facility], [facility] Address [address] [place] [address] Care Team Providers Name Role Phone Jamey Unavailable [phone] PROBLEMS Type Condition ICD9-CM VLA23-XL Onset Condition W/U Status Risk SNOM ED Notes Code Code Dates Status Code Problem Unilateral M17.12 Active confirmed [id number] primary osteoarthrit is, left knee ALLERGIES Allergen (clinical drug Drug/Non Drug Allergy Reaction Allergy Type Onset Date Status ingredient) documented on EMR Latex Latex Unknown Drug Allergy Active ENCOUNTERS from 1955 to 2020-10-21 Encounter Location Date Provider Diagnosis [facility] [address] [facility] [address], [place] [address] IMMUNIZATIONS No Information SOCIAL HISTORY Sex Assigned At : Social History Observation Description Sex Assigned At Unknown REASON FOR REFERRAL from 1955 to 2020-10-21 Diagnosis 1 Unilateral primary osteoarth ritis, left knee (M17.12) Referral Organization [facility] Referring Provider First Name Marty Referring Provider Last Name Jamey Referring Provider Specialty Orthopedic Surgery Referred Provider [facility], - Referral Priority Routine VITAL SIGNS No information MEDICATIONS Medication SIG (Take, Route, Notes Start Date End Date Status Frequency, Duration) Multivitamin Active HYDROcodone-Acetaminophen 1 tablet as needed August, Active 5-325 MG Orally every 6 hrs Glimepiride 4 MG 1 tablet with breakfast Active or the first main meal of the day Orally Once a day for 30 day(s) DULoxetine HCl 20 MG 1 capsule Orally Twice a Active day for 30 day(s) Mirtazapine 30 MG 1 tablet at bedtime Active Orally Once a day for 30 day(s) Furosemide 40 MG 1 tablet Orally Once a Active day for 30 day(s) Diclofenac Sodium 1 % as directed Externally Active Tylenol/codeine #3 #30 one tablet orally every Jul, 1 Active 300-30 mg 4-6 hours prn pain tiZANidine HCl 2 MG 1 tablet as needed Active Orally Three times a day Atorvastatin Calcium 20 MG 1 tablet Orally Once a Active day for 30 day(s) Pregabalin 75 MG 1 capsule Orally Once a Active day Triamcinolone Acetonide 1 application Externally Active 0.1 % Twice a day Pioglitazone HCl 30 MG 1 tablet Orally Once a Active day for 30 day(s) amLODIPine Besy-Benazepril as directed Orally Active HCl 10-40 MG Potassium Chloride ER 10 1 tablet with food Active MEQ Orally Twice a day for 30 day(s) PROCEDURES No Information RESULTS No Results REASON FOR VISIT Left Total Knee Replacement, Dr Ba assist MEDICAL (GENERAL) HISTORY Type Description Date Medical History htn Medical History diabetes Medical History anxiety Medical History arthritis Medical History back pain Medical History depression Surgical History CR/IM nail right femur 08/20/18 Goals Section No Information Health Concerns No Information MEDICAL EQUIPMENT No Information MENTAL STATUS No Information FUNCTIONAL STATUS No Information ASSESSMENTS No Information PLAN OF TREATMENT Referrals Referral Date Details Insurance Providers Payer Name Payer Payer Insured Patient Coverage Coverage End Address Phone Name Relationship to Start Date Evgeny e Insured [employer] [phone] Claire Ozuna self Medicare HMO [place] [id number] [id number] Medicaid [phone] Claire Ozuna self [id number] [facility] [address]
[2020-10-22] MEDS: ENOXAPARIN 40 MG/0.4 ML INJ SUB-Q SCH (09:45)
[2020-10-22] MEDS: KETOROLAC 30 MG/1 ML INJ IV PRN ×2 (12:30→18:05)
[2020-10-22] MEDS ORDERED: tiZANidine TAB 4 MG TAB PO PRN (13:23)
[2020-10-22] MEDS: MULTIVITAMINS,THER W-MINERALS TAB PO SCH (13:44)
[2020-10-22] MEDS: amLODIPine 10 MG TAB PO SCH (13:44)
--- NOTE | 2020-10-22 13:44 | Progress Note ---
Assessment and Plan s/p left TKR post op day #1 continue PT and observation hopefully dc soon Subjective Date of service: 10/22/20 Interval history: c/o incisional pain, PT started earlier today... Objective Vital signs: Vital Signs - 12hr 10/22/20 10/22/20 05:07 07:43 Temperature 97.8 F 98.2 F Pulse Rate 92 H 89 Respiratory 18 18 Rate Blood Pressure 106/70 104/65 O2 Sat by Pulse 99 100 Oximetry Incision: clean and dry Weight bearing status: as tolerated - Labs CBC & BMP: 10/14/20 10:15 10/14/20 10:15 Labs: Abnormal lab results 10/21/20 10/22/20 Range/Units 14:19 11:10 POC Glucose 233 H 230 H (70-105) mg/dL
[2020-10-22] MEDS: DULoxetine 20 MG CAP PO SCH (14:45)
[2020-10-22] MEDS: oxyCODONE /ACETAMINOPHEN 5-325MG TAB PO PRN ×2 (14:47→22:12)
[2020-10-22] MEDS: INSULIN LISPRO 100 UNIT/ML SUB-Q SCH (16:55)
[2020-10-22] MEDS: metFORMIN 500 MG TAB PO SCH (16:55)
[2020-10-22] MEDS ORDERED: PREGABALIN 75 MG CAP PO SCH (22:00)
[2020-10-22] MEDS: MIRTAZAPINE 30 MG TAB PO SCH (22:12)
[2020-10-23] MEDS: KETOROLAC 30 MG/1 ML INJ IV PRN ×3 (03:40→22:20)
[2020-10-23] MEDS: INSULIN LISPRO 100 UNIT/ML SUB-Q SCH ×4 (07:30→22:00)
[2020-10-23] MEDS: MULTIVITAMINS,THER W-MINERALS TAB PO SCH ×2 (08:57→14:44)
[2020-10-23] MEDS: ENOXAPARIN 40 MG/0.4 ML INJ SUB-Q SCH ×2 (08:57→14:43)
[2020-10-23] MEDS: PIOGLITAZONE 15 MG TAB PO SCH (08:57)
[2020-10-23] MEDS: DULoxetine 20 MG CAP PO SCH ×2 (08:58→14:43)
[2020-10-23] MEDS: GLIMEPIRIDE 4 MG TAB PO SCH (08:58)
[2020-10-23] MEDS: metFORMIN 500 MG TAB PO SCH ×2 (08:58→16:56)
[2020-10-23] MEDS: amLODIPine 10 MG TAB PO SCH ×2 (08:59→17:55)
[2020-10-23] MEDS: MORPHINE 4 MG/1 ML INJ IV PRN (11:39)
[2020-10-23] MEDS: oxyCODONE /ACETAMINOPHEN 5-325MG TAB PO PRN (17:01)
[2020-10-23] MEDS: MIRTAZAPINE 30 MG TAB PO SCH (22:21)
[2020-10-24] MEDS: oxyCODONE /ACETAMINOPHEN 5-325MG TAB PO PRN ×3 (05:49→22:02)
[2020-10-24] MEDS: INSULIN LISPRO 100 UNIT/ML SUB-Q SCH ×4 (07:47→21:33)
[2020-10-24] MEDS: PIOGLITAZONE 15 MG TAB PO SCH (09:06)
[2020-10-24] MEDS: ENOXAPARIN 40 MG/0.4 ML INJ SUB-Q SCH (09:06)
[2020-10-24] MEDS: metFORMIN 500 MG TAB PO SCH ×2 (09:06→18:19)
[2020-10-24] MEDS: GLIMEPIRIDE 4 MG TAB PO SCH (09:07)
[2020-10-24] MEDS: MULTIVITAMINS,THER W-MINERALS TAB PO SCH (09:07)
[2020-10-24] MEDS: amLODIPine 10 MG TAB PO SCH (09:07)
[2020-10-24] MEDS: DULoxetine 20 MG CAP PO SCH (09:07)
[2020-10-24] MEDS: MORPHINE 4 MG/1 ML INJ IV PRN ×2 (12:01→19:34)
[2020-10-24] MEDS: LACTATED RINGERS 1,000 ML IV SCH (12:02)
[2020-10-24] MEDS: MIRTAZAPINE 30 MG TAB PO SCH (21:37)
[2020-10-25] MEDS: MORPHINE 4 MG/1 ML INJ IV PRN (00:37)
[2020-10-25] MEDS: oxyCODONE /ACETAMINOPHEN 5-325MG TAB PO PRN ×2 (04:23→12:44)
[2020-10-25] MEDS: PIOGLITAZONE 15 MG TAB PO SCH (09:07)
[2020-10-25] MEDS: KETOROLAC 30 MG/1 ML INJ IV PRN (09:07)
[2020-10-25] MEDS: DULoxetine 20 MG CAP PO SCH (09:07)
[2020-10-25] MEDS: GLIMEPIRIDE 4 MG TAB PO SCH (09:07)
[2020-10-25] MEDS: MULTIVITAMINS,THER W-MINERALS TAB PO SCH (09:08)
[2020-10-25] MEDS: amLODIPine 10 MG TAB PO SCH (09:08)
[2020-10-25] MEDS: INSULIN LISPRO 100 UNIT/ML SUB-Q SCH ×2 (09:08→12:16)
[2020-10-25] MEDS: metFORMIN 500 MG TAB PO SCH (09:08)
[2020-10-25] MEDS: ENOXAPARIN 40 MG/0.4 ML INJ SUB-Q SCH (09:08)
[2020-10-25 11:38] VITALS: BP 110/78
--- NOTE | 2020-10-25 12:20 | Discharge Summary ---
Providers - Providers Date of Admission: 10/21/20 13:04 Date of discharge: 10/25/20 Attending physician: JULY TENA MD 10/21/20 13:07 Physical Therapy Evaluation and Treat [CONS] Routine Comment: Reason For Exam: gait training, NAYELI Weight bearing status?: Full wt bearing Assistive devices?: Yes Primary care physician: LINDA GUERRERO Hospitalization Condition: Stable Hospital course: 65-year-old female who comes in complaining of severe left knee pain and stiffness plain x-rays taken preoperatively show severe osteoarthritis patient was admitted to the hospital where she underwent a left total knee replacement postoperatively she was seen and evaluated by physical therapy case management services were also consulted for home PT and [place] [facility] requirements Disposition: [id number] HOME UNDER HOME HLTH Final Discharge Diagnosis (Prints w/discharge instructions): Severe arthritis left knee Core Measure Documentation - Palliative Care Palliative Care/ Comfort Measures: Not Applicable - Core Measures Any of the following diagnoses?: none - VTE Discharge Requirements Deep Vein Thrombosis/Pulmonary Embolism Present on Admission: No Has pt received <5 days of overlap therapy or INR<2.0: Yes Anticoagulant overlap therapy prescribed at discharge: Yes Contraindication No Overlap Therapy order at DC: Medical Contraindication - Acute AL Discharge Requirements Aspirin at discharge: No Reason for no aspirin on DC: Medical contraindication - Heart Failure Discharge Requirements ANU/ARB for LVSD if EF <40%: Not Applicable - Stroke Discharge Requirements Statin for LDL = or >70 mg/dl on DC: Not Applicable Exam - Physical Exam Narrative exam: left knee - post op dressing intact, neg Jakob's - Constitutional Vitals: Temp Pulse Resp BP Pulse Ox 98.4 F 112 H 18 110/78 96 10/25/20 11:33 10/25/20 11:33 10/25/20 11:33 10/25/20 11:33 10/25/20 11:33 Plan Activity: advance as tolerated Weight Bearing Status: Weight Bear as Tolerated Diet: low fat Wound: keep clean and dry Special Instructions: physical therapy Durable Medical Equipment Needed Upon Discharge: Walker-Standard, Bedside Commode Follow up with: LINDA GUERRERO MD [Primary Care Provider] - 7 Days JULY TENA MD [Staff Physician] - 10 Days Prescriptions: Apixaban [Eliquis] 5 mg PO DAILY 30 Days tablet Oxycodone HCl/Acetaminophen [Percocet 10/325 mg] 1 each PO Q6HR PRN #30 tablet PRN Reason: Pain
== END 2020-10-25 15:55 | disposition home health service (06) | DRG 470 ==
LOC: OR 07:36 → EDSTATUS 08:00 → 3A 13:04 → 3B 14:47 → 3B-SURG 16:48
PROVIDERS: ADMIT Orthopaedic Surgery; ATTEND Orthopaedic Surgery
PROC: 0SRD0J9 Replacement of Left Knee Joint with Synthetic Substitute, Cemented, Open Approach (ICD-10-PCS; principal; 2020-10-21)
DX: M17.12 Unilateral primary osteoarthritis, left knee (principal); F17.210 Nicotine dependence, cigarettes, uncomplicated; I10 Essential (primary) hypertension; F41.9 Anxiety disorder, unspecified; F32.9 Major depressive disorder, single episode, unspecified; F42.9 Obsessive-compulsive disorder, unspecified; Z20.822 Contact with and (suspected) exposure to COVID-19
CPT/HCPCS: 36415; 64450; 80048; 82962; 85027; 88304; 88305; 88311; 99406; G0378; A4217; A9270-GY; C1776; J0690; J1100; J1170; J1650; J1815; J1885; J2250; J2270; J2405; J2704; J3010; J7120; U0003

== ENCOUNTER 2021-01-05 10:59 | Outpatient (CLI) | payer MEDICARE ==
[2021-01-05] MEDS ORDERED: LIDOCAINE (4%) 40 MG/ML TOPICAL SOLN 50 ML BOTTLE TP ONE (11:18)
== END 2021-01-05 11:00 | disposition home or self-care (01) ==
LOC: WOUND 10:59
PROVIDERS: ATTEND Surgery
DX: T81.89XA Other complications of procedures, not elsewhere classified, initial encounter (principal); E11.622 Type 2 diabetes mellitus with other skin ulcer; L97.122 Non-pressure chronic ulcer of left thigh with fat layer exposed; L97.222 Non-pressure chronic ulcer of left calf with fat layer exposed; I10 Essential (primary) hypertension; F41.9 Anxiety disorder, unspecified; F17.210 Nicotine dependence, cigarettes, uncomplicated; Z98.42 Cataract extraction status, left eye; Z98.41 Cataract extraction status, right eye; Z96.652 Presence of left artificial knee joint; Z90.710 Acquired absence of both cervix and uterus; Y83.8 Other surgical procedures as the cause of abnormal reaction of the patient, or of later complication, without mention of misadventure at the time of the procedure; Y92.238 Other place in hospital as the place of occurrence of the external cause
CPT/HCPCS: 11042; G0463; 99214

== ENCOUNTER 2021-01-12 08:21 | Outpatient (CLI) | payer MEDICARE ==
[2021-01-12] MEDS ORDERED: LIDOCAINE (4%) 40 MG/ML TOPICAL SOLN 50 ML BOTTLE TP SCH (09:00)
== END 2021-01-12 08:22 | disposition home or self-care (01) ==
LOC: WOUND 08:21
PROVIDERS: ATTEND Surgery
DX: T81.89XD Other complications of procedures, not elsewhere classified, subsequent encounter (principal); E11.622 Type 2 diabetes mellitus with other skin ulcer; L97.122 Non-pressure chronic ulcer of left thigh with fat layer exposed; L97.222 Non-pressure chronic ulcer of left calf with fat layer exposed; I10 Essential (primary) hypertension; F41.9 Anxiety disorder, unspecified; F17.210 Nicotine dependence, cigarettes, uncomplicated; Z98.42 Cataract extraction status, left eye; Z98.41 Cataract extraction status, right eye; Z96.652 Presence of left artificial knee joint; Z90.710 Acquired absence of both cervix and uterus; Y83.8 Other surgical procedures as the cause of abnormal reaction of the patient, or of later complication, without mention of misadventure at the time of the procedure

== ENCOUNTER 2021-01-17 08:21 | Outpatient (CLI) | payer MEDICARE ==
[2021-01-17] MEDS ORDERED: LIDOCAINE (4%) 40 MG/ML TOPICAL SOLN 50 ML BOTTLE TP SCH (09:00)
== END 2021-01-17 08:22 | disposition home or self-care (01) ==
LOC: WOUND 08:21
PROVIDERS: ATTEND Surgery
DX: T81.89XD Other complications of procedures, not elsewhere classified, subsequent encounter (principal); E11.622 Type 2 diabetes mellitus with other skin ulcer; L97.122 Non-pressure chronic ulcer of left thigh with fat layer exposed; L97.222 Non-pressure chronic ulcer of left calf with fat layer exposed; I10 Essential (primary) hypertension; F41.9 Anxiety disorder, unspecified; F17.210 Nicotine dependence, cigarettes, uncomplicated; Z98.42 Cataract extraction status, left eye; Z98.41 Cataract extraction status, right eye; Z96.652 Presence of left artificial knee joint; Z90.710 Acquired absence of both cervix and uterus; Y83.8 Other surgical procedures as the cause of abnormal reaction of the patient, or of later complication, without mention of misadventure at the time of the procedure

== ENCOUNTER 2021-01-31 08:18 | Outpatient (CLI) | payer MEDICARE ==
[2021-01-31] MEDS ORDERED: LIDOCAINE (4%) 40 MG/ML TOPICAL SOLN 50 ML BOTTLE TP ONE (08:23)
[2021-01-31] MEDS ORDERED: SILVER NITRATE APPLICATOR 1 EA TP ONE (09:05)
== END 2021-01-31 08:19 | disposition home or self-care (01) ==
LOC: WOUND 08:18
PROVIDERS: ATTEND Surgery
DX: T81.89XD Other complications of procedures, not elsewhere classified, subsequent encounter (principal); I87.312 Chronic venous hypertension (idiopathic) with ulcer of left lower extremity; E11.622 Type 2 diabetes mellitus with other skin ulcer; L97.122 Non-pressure chronic ulcer of left thigh with fat layer exposed; L97.222 Non-pressure chronic ulcer of left calf with fat layer exposed; I10 Essential (primary) hypertension; F41.9 Anxiety disorder, unspecified; F17.210 Nicotine dependence, cigarettes, uncomplicated; Z98.42 Cataract extraction status, left eye; Z98.41 Cataract extraction status, right eye; Z96.652 Presence of left artificial knee joint; Z90.710 Acquired absence of both cervix and uterus; Y83.8 Other surgical procedures as the cause of abnormal reaction of the patient, or of later complication, without mention of misadventure at the time of the procedure

== ENCOUNTER 2021-04-10 12:01 | Emergency (ER) | payer MEDICARE ==
--- NOTE | 2021-04-10 16:11 | Emergency Department Report ---
- General Chief Complaint: Upper Respiratory Infection Stated Complaint: COUGH Time Seen by Provider: 04/10/21 15:36 Source: patient Mode of arrival: Ambulatory Limitations: No Limitations - History of Present Illness Initial Comments: Patient is a 65-year-old female presents emergency with complaints of a productive cough that began 4 days ago. She has associated yellow mucus p roduction. Patient states that she is a smoker. She states she is also been having chills, hoarseness of her voice, and generalized body aches. She denies any fever, vomiting, diarrhea. she has a past medical history of hypertension and diabetes. No allergies to medications. - Related Data Home Medications Medication Instructions Recorded Confirmed Last Taken AtorvaSTATin [Lipitor] 20 mg PO QHS 10/14/20 10/21/20 10/20/20 19:00 Diclofenac 1% [Diclofenac 1% 1 dose TP PRN PRN 10/14/20 10/14/20 Unknown topical gel] Docusate Sodium [Colace CAP] 100 mg PO PRN PRN 10/14/20 10/14/20 Unknown Duloxetine HCl 40 mg PO DAILY 10/14/20 10/14/20 Unknown Glimepiride [Amaryl] 4 mg PO QAM 10/14/20 10/21/20 10/20/20 09:00 Mirtazapine [Remeron] 30 mg PO QHS 10/14/20 10/21/20 10/20/20 19:00 Multivit-Min/FA/Lycopen/Lutein 1 each PO DAILY 10/14/20 10/21/20 10/20/20 09:00 [Centrum Silver Tablet] Pioglitazone [Actos] 30 mg PO QDAY 10/14/20 10/21/20 10/20/20 09:00 Pregabalin [Lyrica] 75 mg PO BID 10/14/20 10/21/20 10/20/20 17:00 Tizanidine HCl [Zanaflex 2mg CAP] 2 mg PO Q8HR PRN 10/14/20 10/22/20 Unknown metFORMIN [Glucophage] 500 mg PO BID 10/14/20 10/21/20 10/20/20 17:00 Norvasc 10 mg PO DAILY 10/22/20 10/22/20 10/21/20 09:00 Previous Rx's Medication Instructions Recorded Last Taken Type Apixaban [Eliquis] 5 mg PO DAILY 30 Days tablet 10/22/20 Unknown Rx Oxycodone HCl/Acetaminophen 1 each PO Q6HR PRN #30 tablet 10/22/20 Unknown Rx [Percocet 10/325 mg] Albuterol Sulfate [Proventil Hfa] 1 puff IH TID PRN #1 hfa.aer.ad 04/10/21 Unknown Rx Benzonatate [Tessalon Perles] 100 mg PO Q8HR PRN #12 capsule 04/10/21 Unknown Rx Doxycycline Hyclate [Doxycycline 100 mg PO BID 7 Days #14 tab 04/10/21 Unknown Rx Hyclate TAB] guaiFENesin ER [Mucinex ER] 600 mg PO Q12H #14 tablet.er 04/10/21 Unknown Rx Allergies Allergy/AdvReac Type Severity Reaction Status Date / Time latex Allergy Rash Verified 04/25/13 13:59 ED Review of Systems ROS: Stated complaint: COUGH Other details as noted in HPI Comment: All other systems reviewed and negative ED Past Medical Hx - Past Medical History Previous Medical History?: Yes Hx Hypertension: Yes (X 20 YRS) Hx Congestive Heart Failure: No Hx Diabetes: Yes Hx Sickle Cell Disease: No Hx Arthritis: Yes (LEFT HIP) Hx Psychiatric Treatment: Yes (Anxiety, OCD, depression) Hx Asthma: No Hx COPD: No Additional medical history: Noncompliant with hypertension and diabetic meds, Enlarged Liver - Surgical History Past Surgical History?: Yes Additional Surgical History: Tubal ligation. partial hysterectomy, microscopic surg to both knees - Social History Smoking Status: Current Every Day Smoker - Medications Home Medications: Home Medications Medication Instructions Recorded Confirmed Last Taken Type AtorvaSTATin [Lipitor] 20 mg PO QHS 10/14/20 10/21/20 10/20/20 19:00 History Diclofenac 1% [Diclofenac 1% 1 dose TP PRN PRN 10/14/20 10/14/20 Unknown History topical gel] Docusate Sodium [Colace CAP] 100 mg PO PRN PRN 10/14/20 10/14/20 Unknown History Duloxetine HCl 40 mg PO DAILY 10/14/20 10/14/20 Unknown History Glimepiride [Amaryl] 4 mg PO QAM 10/14/20 10/21/20 10/20/20 09:00 History Mirtazapine [Remeron] 30 mg PO QHS 10/14/20 10/21/20 10/20/20 19:00 History Multivit-Min/FA/Lycopen/Lutein 1 each PO DAILY 10/14/20 10/21/20 10/20/20 09:00 History [Centrum Silver Tablet] Pioglitazone [Actos] 30 mg PO QDAY 10/14/20 10/21/20 10/20/20 09:00 History Pregabalin [Lyrica] 75 mg PO BID 10/14/20 10/21/20 10/20/20 17:00 History Tizanidine HCl [Zanaflex 2mg CAP] 2 mg PO Q8HR PRN 10/14/20 10/22/20 Unknown History metFORMIN [Glucophage] 500 mg PO BID 10/14/20 10/21/20 10/20/20 17:00 History Apixaban [Eliquis] 5 mg PO DAILY 30 Days tablet 10/22/20 Unknown Rx Norvasc 10 mg PO DAILY 10/22/20 10/22/20 10/21/20 09:00 History Oxycodone HCl/Acetaminophen 1 each PO Q6HR PRN #30 tablet 10/22/20 Unknown Rx [Percocet 10/325 mg] Albuterol Sulfate [Proventil Hfa] 1 puff IH TID PRN #1 hfa.aer.ad 04/10/21 Unknown Rx Benzonatate [Tessalon Perles] 100 mg PO Q8HR PRN #12 capsule 04/10/21 Unknown Rx Doxycycline Hyclate [Doxycycline 100 mg PO BID 7 Days #14 tab 04/10/21 Unknown Rx Hyclate TAB] guaiFENesin ER [Mucinex ER] 600 mg PO Q12H #14 tablet.er 04/10/21 Unknown Rx ED Physical Exam - General Limitations: No Limitations General appearance: alert, in no apparent distress - Head Head exam: Present: atraumatic, normocephalic - Eye Eye exam: Present: normal appearance - ENT ENT exam: Present: mucous membranes moist - Respiratory Respiratory exam: Present: normal lung sounds bilaterally. Absent: respiratory distress, wheezes, rales, rhonchi, stridor, chest wall tenderness, accessory muscle use, decreased breath sounds, prolonged expiratory - Cardiovascular Cardiovascular Exam: Present: regular rate, normal rhythm, normal heart sounds. Absent: systolic murmur, diastolic murmur, rubs, gallop - Neurological Exam Neurological exam: Present: alert, oriented X3 - Psychiatric Psychiatric exam: Present: normal affect, normal mood - Skin Skin exam: Present: warm, dry, intact ED Course Vital Signs 04/10/21 04/10/21 14:05 16:51 Temperature 98 F 98.6 F Pulse Rate 100 H 71 Respiratory 16 16 Rate Blood Pressure 126/101 121/78 [Left] O2 Sat by Pulse 100 100 Oximetry ED Medical Decision Making - Lab Data Vital Signs 04/10/21 04/10/21 14:05 16:51 Temperature 98 F 98.6 F Pulse Rate 100 H 71 Respiratory 16 16 Rate Blood Pressure 126/101 121/78 [Left] O2 Sat by Pulse 100 100 Oximetry - Radiology Data Radiology results: report reviewed CHEST 2 VIEWS INDICATION: productive cough. COMPARISON: 04/25/2013 FINDINGS: SUPPORT DEVICES: None. HEART: Within normal limits. LUNGS/PLEURA: No acute air space or interstitial disease. No pneumothorax. ADDITIONAL FINDINGS: None. IMPRESSION: 1. No acute findings. Signer Name: Alex Guzman MD Signed: 04/10/2021 3:11 PM Workstation Name: [id number] - Medical Decision Making Patient is a 65-year-old female presents emergency with complaints of a productive cough that began 4 days ago. She has associated yellow mucus production. Patient states that she is a smoker. She states she is also been having chills, hoarseness of her voice, and generalized body aches. She denies any fever, vomiting, diarrhea. she has a past medical history of hypertension and diabetes. No allergies to medications. Breath sounds are clear bilaterally. Chest x-ray 1. No acute findings. Given that patient is a current heavy smoker and has had a change in her sputum production, will cover patient with antibiotics for acute bronchitis. Given that patient has a history of diabetes, will avoid steroids at this time. Patient given prescription for medications. Advised patient please take medication as prescribed. Increase your fluid intake. Follow-up with your primary care doctor. For reexamination. Return to emergency room for any new or worsening symptoms. Recommend outpatient COVID-19 testing and if positive will need to self quarantine for 10 days from onset of symptoms. Critical care attestation.: If time is entered above; I have spent that time in minutes in the direct care of this critically ill patient, excluding procedure time. ED Disposition Clinical Impression: Acute bronchitis Qualifiers: Bronchitis organism: unspecified organism Qualified Code(s): J20.9 - Acute bronchitis, unspecified Disposition: 01 HOME / SELF CARE / HOMELESS Is pt being admited?: No Does the pt Need Aspirin: No Condition: Stable Instructions: Acute Bronchitis, Adult, Acute Bronchitis (ED) Additional Instructions: please take medication as prescribed. Increase your fluid intake. Follow-up with your primary care doctor. For reexamination. Return to emergency room for any new or worsening symptoms. Recommend outpatient COVID-19 testing and if positive will need to self quarantine for 10 days from onset of symptoms. Prescriptions: Doxycycline Hyclate [Doxycycline Hyclate TAB] 100 mg PO BID 7 Days #14 tab guaiFENesin ER [Mucinex ER] 600 mg PO Q12H #14 tablet.er Albuterol Sulfate [Proventil Hfa] 1 puff IH TID PRN #1 hfa.aer.ad PRN Reason: wheezing/shortness of breath Benzonatate [Tessalon Perles] 100 mg PO Q8HR PRN #12 capsule PRN Reason: cough Referrals: LANNY JUNIOR MD [Staff Physician] - 3-5 Days [facility] [Provider Group] - 3-5 Days Time of Disposition: 16:26 Print Language: CHADIAN
--- NOTE | 2021-04-10 16:15 | XRay Report ---
CHEST 2 VIEWS INDICATION: productive cough. COMPARISON: 04/25/2013 FINDINGS: SUPPORT DEVICES: None. HEART: Within normal limits. LUNGS/PLEURA: No acute air space or interstitial disease. No pneumothorax. ADDITIONAL FINDINGS: None. IMPRESSION: 1. No acute findings. Signer Name: Alex Guzman MD Signed: 04/10/2021 4:11 PM Workstation Name: [id number]
[2021-04-10 16:56] VITALS: BP 121/78
== END 2021-04-10 19:10 | disposition home or self-care (01) ==
LOC: ED 12:01
DX: J20.9 Acute bronchitis, unspecified (principal); I10 Essential (primary) hypertension; E11.9 Type 2 diabetes mellitus without complications; M19.90 Unspecified osteoarthritis, unspecified site; F32.9 Major depressive disorder, single episode, unspecified; Z91.040 Latex allergy status; Z79.01 Long term (current) use of anticoagulants; Z79.899 Other long term (current) drug therapy
CPT/HCPCS: 71046; 99283

== ENCOUNTER 2021-06-17 10:12 | Outpatient (CLI) | payer MEDICARE ==
--- NOTE | 2021-06-17 14:07 | Magnetic Resonance Report ---
MRI CERVICAL SPINE WITHOUT CONTRAST INDICATION / CLINICAL INFORMATION: M25.511. TECHNIQUE: Multisequence, multiplanar images of the cervical spine were obtained. COMPARISON: None available. FINDINGS: POSTOPERATIVE CHANGES: none CRANIOCERVICAL JUNCTION:No significant abnormality. ALIGNMENT: Loss the normal cervical lordosis is noted. VERTEBRAE:Reactive changes secondary to degenerative disc disease are seen at multiple cervical and u pper thoracic vertebral body endplates. No suspicious foci of abnormal bone marrow signal intensity a re identified. CERVICAL INTERVERTEBRAL DISCS: Advanced disc desiccation is noted at the C3-4, C5-6, C6-7, C7-T1 and T1-2 levels. VISUALIZED SPINAL CORD: No intrinsic cord lesions are identified. [id number] ANALYSIS: C2-3: No significant disc abnormality, spinal canal stenosis, or neural foraminal stenosis. C3-4: Advanced disc desiccation is noted. Moderate anterior osteophyte formation is observed. Posteri or disc osteophyte complex produces thecal sac compression and cord deformity. There is decreased CSF signal intensity within the thecal sac at this level. AP diameter of the spinal canal is about 7 mm consistent with moderate central canal stenosis. Additionally noted is moderate bilateral neuroforami nal narrowing which appears to be due to uncovertebral arthropathy. C4-5: Disc desiccation is noted. Posterior disc osteophyte complex flattens the thecal sac slightly. There is decreased CSF signal intensity surrounding the cord at this level. AP diameter of the spinal canal measures about 8 mm. There is a mild degree of central canal stenosis. Moderate bilateral neur oforaminal narrowing is observed. This appears to be due to uncovertebral arthropathy. Also noted is anterior osteophyte formation lateralizing to the right. C5-6: Disc desiccation is noted. Posterior disc osteophyte complex flattens the thecal sac slightly. This does not deform the cord. Cord remains surrounded by cerebrospinal fluid signal intensity. AP di ameter of the spinal canal is about 10 mm. There is no indication of central canal stenosis. Mild lef t-sided C6 nerve root neuroforaminal narrowing is noted. This appears to be due to uncovertebral arth ropathy. C6-7: Desiccation is noted. Anterior osteophyte formation is observed. Minimal posterior disc osteoph yte complex flattens the thecal sac slightly. Central spinal canal is adequately maintained as are th e C7 nerve root neuroforamina. C7-T1: Advanced disc desiccation is noted. Anterior osteophyte formation is observed. There is no ind ication of disc herniation, central canal stenosis or significant neuroforaminal narrowing. T1-T2: Disc desiccation is noted. Reactive changes secondary to degenerative disc disease are seen at the adjacent endplates. There is no indication of central canal stenosis but bilateral neuroforamina l stenosis is suspected. Only sagittal scans are available at this level. PARASPINAL SOFT TISSUES: No significant abnormality. IMPRESSION: 1. Widespread cervical spondylosis as described level by level above. 2. Moderate central canal stenosis C3-4 with mild central canal stenosis at C4-5. 3. Multifocal neuroforaminal stenosis as described level by level above. Signer Name: Sesar Marie MD Signed: 06/17/2021 2:03 PM Workstation Name: [id number]
--- NOTE | 2021-06-17 14:12 | Magnetic Resonance Report ---
MRI RIGHT SHOULDER WITHOUT CONTRAST INDICATION / CLINICAL INFORMATION: M47.816. Right shoulder pain TECHNIQUE: Multiplanar, multisequence MR images were obtained. No contrast used. COMPARISON: Radiograph dated 08/17/18 FINDINGS: SUPRASPINATUS: Full-thickness, essentially complete tear of the supraspinatus tendon with retraction to the 12:00 position of the humeral head measuring about 2.5 cm. Moderate muscle atrophy. INFRASPINATUS: Full-thickness tear with retraction almost to the glenoid and moderate muscle atrophy. SUBSCAPULARIS: Marked tendinosis but no tear. BICEPS TENDON, LONG HEAD: Severe proximal biceps tendinosis. GLENOID LABRUM: Degenerative fraying of the superior labrum. ARTICULAR CARTILAGE: Mild glenohumeral chondrosis. JOINT SPACE / CAPSULE: Small joint effusion with moderate synovitis. ACROMION / A.C. JOINT: Mild AC joint degenerative arthrosis with type III acromion producing mild enc roachment on the rotator cuff. SUBACROMIAL/SUBDELTOID SPACE: Small amount of fluid in the subacromial space. BONES: No significant bone marrow edema. No fracture. No osseous lesion. SOFT TISSUES: No significant abnormality. ADDITIONAL FINDINGS: None. IMPRESSION: 1. Full-thickness tears of the distal supraspinatus and infraspinatus tendons with mild retraction an d moderate muscle atrophy. 2. Moderate subscapularis tendinosis. 3. Severe biceps tendinosis. 4. Mild glenohumeral chondrosis with small joint effusion and moderate synovitis. Signer Name: Candy Seay MD Signed: 06/17/2021 2:08 PM Workstation Name: [id number]
--- NOTE | 2021-06-17 15:39 | Magnetic Resonance Report ---
MR lumbar spine wo con INDICATION / CLINICAL INFORMATION: M54.12. TECHNIQUE: Multisequence, multiplanar images of the lumbar spine were obtained. COMPARISON: 08/17/2015 FINDINGS: NOMENCLATURE: For the purposes of this report, L5-S1 is defined as axial image 35 of series 6. ALIGNMENT: Minimal leftward curvature. VERTEBRAE:[id number] appearance at T12-L1 with associated Modic type II fatty endplate change. Mult ilevel Modic type II fatty endplate changes throughout the lumbar spine. Minimal Modic type I degener ative endplate edema at L1-L2, L2-L3, L3-4. No aggressive osseous marrow signal. Vertebral body heigh ts are preserved. VISUALIZED SPINAL CORD: The conus appears within normal limits. [id number] ANALYSIS: T12-L1: Disc osteophyte complex without significant spinal canal foraminal stenosis. L1-2: Mild progression. 2 mm retrolisthesis of L1 on L2. Uncovering of the inferior aspect of the dis c. Moderate spinal canal stenosis. Moderate right and mild left foraminal narrowing. L2-3: Similar to the prior. Asymmetric to left disc bulge. Moderate facet arthropathy. Severe spinal canal stenosis. Mild foraminal narrowing. L3-4: Similar to the prior. Disc bulge and small central protrusion. Advanced arthropathy. Severe spi nal canal stenosis. Moderate left and mild right foraminal narrowing. No significant spinal canal joshua nosis. No significant foraminal narrowing. L4-5:Similar to the prior. 2 mm anterolisthesis of L4 on L5. Symmetric bulge. Advanced facet arthrop athy. Severe spinal canal stenosis. No significant foraminal narrowing. L5-S1: Similar to the prior. 2 mm retrolisthesis of L5 on S1. Small symmetric disc bulge. Mild facet arthropathy. No significant spinal canal stenosis. Mild bilateral foraminal narrowing. PARASPINAL SOFT TISSUES: No significant abnormality. ADDITIONAL FINDINGS: There is epidural lipomatosis throughout the lumbar spine which contributes to t he stenosis.. IMPRESSION: Diffuse advanced spondylosis lumbar spine as described above with multilevel high-grade spinal canal stenosis and foraminal narrowing. Definitions used for the purposes of this report: Lumbar canal stenosis (Lizzy et al. Br J Radiol. 2013 August;86(7413):[id number]): No stenosis: No attenuation of the CSF spaces Mild stenosis: Anterior CSF space mildly obliterated Moderate stenosis: Anterior CSF space is moderately obliterated; cauda equina partially aggregated Severe stenosis: Marked compression of the dural sac; cauda equina cannot be visually and a ppear as a bundle Lumbar lateral recess stenosis (Irwin et al. World J Radiol. 2017 September 10;9(5):223-229): No stenosis: Nerve root is bathed in fluid Mild stenosis: Narrowing of the lateral recess without root deviation Moderate stenosis: Narrowing of the recess with nerve root deviation Severe stenosis: Compression of the nerve root Lumbar neural foraminal stenosis (Mando et al. AJR Am J Roentgenol. 2009;194(4):1095-8): No stenosis: No attenuation of the fat in the foramen Mild stenosis: Loss of the fat in the foramen on two sides Moderate stenosis: Loss of the fat in the foramen all four sides Severe stenosis: Loss of the fat in the foramen all four sides and compression of the nerve root Signer Name: Mazin Still MD Signed: 06/17/2021 3:35 PM Workstation Name: [id number]
== END 2021-06-17 10:13 | disposition home or self-care (01) ==
LOC: MRI 10:12
PROVIDERS: ATTEND Anesthesiology
DX: S46.811A Strain of other muscles, fascia and tendons at shoulder and upper arm level, right arm, initial encounter (principal); M43.17 Spondylolisthesis, lumbosacral region; M48.07 Spinal stenosis, lumbosacral region; M25.411 Effusion, right shoulder; M50.123 Cervical disc disorder at C6-C7 level with radiculopathy; M50.13 Cervical disc disorder with radiculopathy, cervicothoracic region; M50.122 Cervical disc disorder at C5-C6 level with radiculopathy; M47.816 Spondylosis without myelopathy or radiculopathy, lumbar region; M50.121 Cervical disc disorder at C4-C5 level with radiculopathy; M48.02 Spinal stenosis, cervical region; M47.812 Spondylosis without myelopathy or radiculopathy, cervical region; X58.XXXA Exposure to other specified factors, initial encounter; Y93.89 Activity, other specified; Y92.89 Other specified places as the place of occurrence of the external cause; Y99.8 Other external cause status
CPT/HCPCS: 72141; 72148